=== PATIENT | female | born 1940 | race Two or more races ===

== ENCOUNTER → 2020-01-22 12:28 | Outpatient (BNVA) | payer MEDICARE, SELFPAY | PROVIDERS: PCP Internal Medicine; Referring Provider Internal Medicine; Visit Provider Physician Assistant | DX: Z01.818 Encounter for other preprocedural examination (principal) | CPT/HCPCS: 99213; Q3014 ==

== ENCOUNTER 2020-04-01 11:54 | Outpatient (REF) | payer MEDICARE, SELFPAY ==
[2020-04-01 14:46] LABS: Anion Gap 15 (12-20); Blood Urea Nitrogen 21 mg/dL (9-16); Calcium 9.4 mg/dL (8.4-10.2); Carbon Dioxide 23 mmol/L (22-29); Chloride 108 mmol/L (96-108); Estimated Glomerular Filt Rate 25; Glucose Random 102 mg/dL (60-115); Potassium 5.1 mmol/l (3.3-5.1); Sodium 141 mmol/L (135-145)
== END 2020-04-01 11:55 | disposition home or self-care (01) ==
LOC: HO.WFDLDS 11:54
PROVIDERS: Visit Provider Hospitalist
DX: N17.9 Acute kidney failure, unspecified (principal)
CPT/HCPCS: 80048

== ENCOUNTER 2020-04-07 11:54 | Outpatient (REF) | payer MEDICARE, SELFPAY ==
[2020-04-07 13:14] LABS: Anion Gap 15 (12-20); Blood Urea Nitrogen 15 mg/dL (9-16); Calcium 9.4 mg/dL (8.4-10.2); Carbon Dioxide 23 mmol/L (22-29); Chloride 107 mmol/L (96-108); Estimated Glomerular Filt Rate 32; Glucose Random 107 mg/dL (60-115); Potassium 5.2 mmol/l (3.3-5.1); Sodium 140 mmol/L (135-145)
== END 2020-04-07 11:55 | disposition home or self-care (01) ==
LOC: HO.LAB 11:54
PROVIDERS: PCP Hospitalist; Visit Provider Hospitalist
DX: N17.9 Acute kidney failure, unspecified (principal); E87.5 Hyperkalemia
CPT/HCPCS: 36415; 80048

== ENCOUNTER 2020-10-06 09:45 | Outpatient (RCR) | payer MEDICARE, SELFPAY | END 2020-10-06 15:00 | disposition home or self-care (01) | LOC: HO.OT 09:45 | PROVIDERS: PCP Internal Medicine; Visit Provider Internal Medicine | DX: M79.642 Pain in left hand (principal) ==

== ENCOUNTER 2020-11-03 13:45 | Outpatient (REF) | payer MEDICARE, SELFPAY ==
--- NOTE | ~2020-11-03 | XR_ITS ---
EXAMINATION: XR SHOULDER, RIGHT CLINICAL INFORMATION: Osteoarthritis. COMPARISON: None. TECHNIQUE: AP external rotation, Grashey, scapular Y, and axillary views of the right shoulder. FINDINGS: There is no evidence of acute fracture or dislocation of the right shoulder. No evidence of calcific tendinitis. There is spurring at the glenohumeral joint with some bony densities about the superior glenoid, likely related to previous trauma. There is some spurring about the acromioclavicular joint. XR/XR shoulder RT min 2V IMPRESSION: No evidence of acute fracture or dislocation of the right shoulder. Degenerative change as described.
== END 2020-11-03 13:46 | disposition home or self-care (01) ==
LOC: HO.XRAY 13:45
PROVIDERS: PCP Internal Medicine; Visit Provider Nurse Practitioner Family
DX: M19.011 Primary osteoarthritis, right shoulder (principal); M25.511 Pain in right shoulder
CPT/HCPCS: 73030; 99212

== ENCOUNTER 2020-11-18 06:08 | Outpatient (REF) | payer MEDICARE, SELFPAY | END 2020-11-18 06:09 | disposition home or self-care (01) | LOC: HO.RADIR 06:08 | PROVIDERS: Visit Provider Internal Medicine | DX: M19.011 Primary osteoarthritis, right shoulder (principal) | CPT/HCPCS: 20611; J3300 ==

== ENCOUNTER 2021-04-29 13:19 | Outpatient (REF) | payer MEDICARE, SELFPAY ==
[2021-04-29 16:17] LABS: Vitamin B12 178 pg/mL (200-900)
[2021-04-29 17:19] LABS: TSH reflex Free T4 3.22 uIU/mL (0.32-4.0)
[2021-05-04 17:37] LABS: Vitamin D 25-OH, D2 <4 ng/mL; Vitamin D 25-OH, D3 28 ng/mL; Vitamin D 25-OH, Total 28 ng/mL (30-100)
== END 2021-04-29 13:20 | disposition home or self-care (01) ==
LOC: HO.LAB 13:19
PROVIDERS: PCP Internal Medicine; Referring Provider Internal Medicine; Visit Provider Nurse Practitioner Family
DX: R19.7 Diarrhea, unspecified (principal); E55.9 Vitamin D deficiency, unspecified; K21.9 Gastro-esophageal reflux disease without esophagitis; K58.2 Mixed irritable bowel syndrome; K59.01 Slow transit constipation
CPT/HCPCS: 36415; 82306; 82607; 82746; 84443; 99212

== ENCOUNTER 2021-05-04 17:01 | Outpatient (REF) | payer MEDICARE, MEDICAID, SELFPAY | END 2021-05-04 17:02 | disposition home or self-care (01) | LOC: HO.LNP 17:01 | PROVIDERS: Visit Provider Nurse Practitioner Family | DX: K21.9 Gastro-esophageal reflux disease without esophagitis (principal); Z11.0 Encounter for screening for intestinal infectious diseases | CPT/HCPCS: 87338 ==

== ENCOUNTER 2021-07-26 10:14 | Outpatient (REF) | payer MEDICARE, MEDICAID, SELFPAY ==
[2021-07-26 10:36] VITALS: BP 140/44; PULSE 62; RESP 16; TEMP 37.1; O2SAT 100
[2021-07-26 10:37] VITALS: BMI 37.3
== END 2021-07-26 10:15 | disposition home or self-care (01) ==
LOC: HO.MS 10:14
PROVIDERS: PCP Internal Medicine; Visit Provider Ophthalmology
PROC: (CPT 66821; principal; 2021-07-26 11:10)
DX: H26.491 Other secondary cataract, right eye (principal); Z96.1 Presence of intraocular lens; E11.3592 Type 2 diabetes mellitus with proliferative diabetic retinopathy without macular edema, left eye; I10 Essential (primary) hypertension; J45.909 Unspecified asthma, uncomplicated; Z79.84 Long term (current) use of oral hypoglycemic drugs; Z79.899 Other long term (current) drug therapy
CPT/HCPCS: 66821

== ENCOUNTER 2022-12-02 10:04 | Outpatient (AMB) | payer MEDICARE, MEDICAID, SELFPAY ==
--- NOTE | 2022-12-02 10:10 | A.OFFPC_ITS ---
Vital Signs 12/02/22 10:12 Height 4 ft 10 in Weight 175 lb BMI 36.6 BP 112/68 Blood Pressure Location Lt brachial Position Sitting Pulse 72 Pulse Source Pulse Oximeter Temp Source Skin Pulse Oximetry (%) 100 Oxygen Delivery Method Room Air Intake Visit Reasons: Physical exam Allergies aspirin [ASA] Allergy (Severe, Verified 12/02/22 10:20) FACIAL SWELLING naproxen [NAPROXEN] Allergy (Intermediate, Verified 12/02/22 10:20) NAUSEA & VOMITING hydrocodone [From Vicodin] Allergy (Mild, Verified 12/02/22 10:20) itching NSAIDS (Non-Steroidal Anti-Inflamma [Nsaids] Allergy (Mild, Verified 12/02/22 10:20) itching penicillamine Allergy (Mild, Verified 12/02/22 10:20) itching Medication List - Last Reconciled 12/02/22 by TIMOHTY Truong allopurinol 100 mg PO DAILY 90 days alum-mag hydroxide-simeth 200-200-20 mg/5 mL mL PO amiodarone 200 mg PO .once a day 90 days apixaban (Eliquis) 5 mg PO Q12H blood pressure monitor As directed blood sugar diagnostic As directed cholecalciferol (vitamin D3) 25 mcg PO DAILY 90 days commode As directed dapagliflozin propanediol (Farxiga) 10 mg PO DAILY 90 days disposable gloves As directed [disposable underwear As directed] famotidine 40 mg PO BEDTIME 90 days ferrous sulfate 325 mg PO DAILY folic acid 1 mg PO DAILY 90 days gabapentin 600 mg (2 x 300 mg) PO BID gabapentin 400 mg PO BID 90 days loratadine 10 mg PO DAILY mecobalamin (vitamin B12) 1,000 mcg sublingual BEDTIME 90 days metformin 2,000 mg (2 x 1,000 mg) PO DAILY 90 days methylcellulose (laxative) (Citrucel) 500 mg PO DAILY metoprolol tartrate 75 mg (3 x 25 mg) PO DAILY montelukast 10 mg PO DAILY ondansetron HCl 4 mg PO DAILY PRN 90 days [personal cleansing wipes As directed] sennosides (Natural Senna Laxative) 8.6 mg PO BEDTIME simvastatin 10 mg PO BEDTIME tramadol 50 mg PO Q6H PRN Transfer Bench As directed underpads (Bed Underpads) As directed Tobacco use date assessed: 12/02/22 Fall risk assessment: No Falls in past year Last assessed Fall Risk: 12/02/22 Dental Screening Dental Screen Date: 12/02/22 Did you have a dental visit in the last 12 months?: Yes Did you have a dental problem in the last 6 months where you did not have access to dental care?: No Was dental information given to patient?: Patient has dentist HPI Physical exam HPI Details Patient is an 82-year-old female who presents today for physical exam. Patient of Dr. Maza. Medical history significant for diabetes, asthma, hyperlipidemia, atrial flutter-followed by Cardiology, obesity, gout, chronic GERD-patient reports that Pepcid is not helping her -she reports she was on omeprazole in the past which was helping her more-would like to go back on omeprazole, hypertension, bilateral hip and bilateral knee pain-patient reports she was seen by rheumatology in the past and was receiving injections in her joints-would like to see orthopedics for injections. She denies shortness of breath or chest pain. Patient is due for diabetic eye exam, will refer. Today we discussed patient's need for mammogram and bone density screening. Patient reports intermittent rash like eczema on her arms for the past some time, she uses Vaseline with no much improvement. Patient is a Swedish-speaking and her granddaughter Umberto was with interpretation. Patient was encouraged to complete her blood work that was ordered by PCP. [facility] Medical History Acid reflux Adenomatous colon polyp Asthma B12 deficiency Gout HTN (hypertension) Hyperlipidemia Left hand pain Left hip pain Left knee pain Lumbar pain Lumbar radiculopathy Morbid obesity Normal colonoscopy Right hip pain Right knee pain Right shoulder pain Surgical History History of colonoscopy History of surgery History of total abdominal hysterectomy and bilateral salpingo-oophorectomy Family History Father No problems noted. Mother No problems noted. 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 1. Little interest or pleasure in doing things: not at all 2. Feeling down, depressed, or hopeless: not at all 3. Trouble falling or staying asleep, or sleeping too much: not at all 4. Feeling tired or having little energy: not at all 5. Poor appetite or overeating: not at all 6. Feeling bad about yourself - or that you are a failure or have let yourself or your family down: not at all 7. Trouble concentrating on things, such as reading the newspaper or watching television: not at all 8. Moving or speaking so slowly that other people could have noticed. Or the opposite - being so fidgety or restless that you have been moving around a lot more than usual: not at all 9. Thoughts that you would be better off or of hurting yourself in some way: not at all Total score: 0 Depression Screening Interpretation: Negative 77092 - PHQ-9 Billing: Yes Source: Developed by Drs. Leonard Kaufman, Melinda Howard, Pedro Carrington and colleagues, with an educational traci from [employer]. Thrive Questionnaire Date Thrive assessed: 05/16/22 AUDIT C Alcohol Use Questionnaire (AUDIT-C) 1. How often do you have a drink containing alcohol?: Never Total Score: 0 Score Reviewed/Action Taken: No ALMA-7 AMB Questionnaire ALMA-7 Date ALMA - 7 assessed: 05/16/22 Feeling nervous, anxious, or on edge: 0 = Not at all Not being able to stop or control worryin = Not at all Worrying too much about different things: 0 = Not at all Trouble relaxin = Not at all Being so restless that it is hard to sit still: 0 = Not at all Becoming easily annoyed or irritable: 0 = Not at all Feeling afraid as if something awful might happen: 0 = Not at all Total ALMA-7 score (0-4 normal; 5-9 mild; 10-14 moderate; 15-21 severe): 0 Source: Developed by Drs. Leonard Kaufman, Melinda Howard, Pedro Carrington and colleagues, with an educational traci from [employer]. ALMA-7 Assessment Billing ALMA-7 Assessment Tool: ALMA-7 Assessment 08235 Review of Systems Const Denies body aches, Denies chills, Denies fever(s) and Denies headache(s) Eyes Denies change in vision ENT Denies dizziness, Denies otalgia, Denies headache(s), Denies nasal discharge, Denies sinus pain and Denies sore throat Card Denies chest pain, Denies edema, Denies lightheadedness and Denies dyspnea Resp Denies cough, Denies dyspnea and Denies wheezing GI Denies abdominal pain, Denies constipation, Reports dyspepsia, Reports heartburn, Denies diarrhea, Denies nausea and Denies vomiting Denies dysuria Musc Denies myalgias and Reports arthralgias Skin/Breast Denies rash Neuro Denies dizziness and Denies headache(s) Aller/Immun Denies wheezing Physical exam (Primary Care) Vital Signs: Last Vital Signs Pulse 72 12/02/22 10:12 BP 112/68 12/02/22 10:12 Pulse Ox 100 12/02/22 10:12 Oxygen Delivery Method Room Air 12/02/22 10:12 BMI result Body Mass Index 36.6 Tobacco/Smoking Status: Tobacco use Status Tobacco use date assessed 12/02/22 12/02/22 10:19 Patient Tobacco Use Status Former Tobacco user 12/02/22 10:11 Tobacco use type Cigarette 12/02/22 10:11 e-Cigarette/Vaping Use Never Used 12/02/22 10:11 PHQ-9: PHQ-9 Score PHQ-9: Total score 0 12/02/22 10:26 Depression Screening Interpretation: Negative Thrive Assessment: Date of Thrive Assessment Date Thrive assessed 05/16/22 12/02/22 10:11 Const General: cooperative and no acute distress Orientation/consciousness: patient oriented x3 HENMT Head: Yes normocephalic and Yes atraumatic Ears: TM's normal bilaterally Face and sinus: Yes sinuses nontender Mouth: oropharynx normal and moist mucous membranes Throat: Yes posterior oropharynx normal Eyes General: appearance normal, both eyes and all related structures Pupils: Equal, round and reactive pupils present EOM: EOMs intact bilaterally Neck Neck: Yes normal visual inspection, Yes full ROM and Yes no lymphadenopathy Thyroid: Thyroid normal Resp Effort & Inspection: normal respiratory effort and able to speak in complete sentences Auscultation: clear to auscultation bilaterally, no crackles, no rales, no rhonchi and no wheezes Cardio Rate: regular rate Rhythm: regular rhythm Heart sounds: S1 normal heart sound present, S2 normal heart sound present and no murmurs GI Palpation (GI): Soft to palpation, not firm, nontender, no guarding, not rigid and no hepatosplenomegaly Auscultation: normal bowel sounds General: No CVA tenderness Back/Spine/Pelvis Back: No CVA tenderness Skin Other: Bilateral distal arms with mild amount of slightly erythematous/dry areas with scabs, patient reports pruritus, reports scratching Neuro General: patient oriented x3 Cranial nerves: Yes Equal, round and reactive pupils present Gait exam (Neuro): Normal gait present Extrem General: Yes full ROM and No edema Results AMB Hemoglobin A1c AMB Hemoglobin A1c 4.6 % Last Edit by SARAH Pope on 12/02/22 10:20 Results Reviewed Results Reviewed: Laboratory Last Values Hgb A1c (Clinic) 4.6 % (4.0-6.0) 12/02/22 10:08 Assessment and Plan Assessment & Plan (1) Rash: Code(s): R21 - Rash and other nonspecific skin eruption Plan: Suspect eczema Continue Vaseline cream p.r.n. Start triamcinolone cream daily for 2 weeks (2) Post-menopausal: Code(s): Z78.0 - Asymptomatic menopausal state (3) Screening for breast cancer: Code(s): Z12.39 - Encounter for other screening for malignant neoplasm of breast (4) Atrial flutter: Code(s): I48.92 - Unspecified atrial flutter Plan: Continue to follow-up with cardiology On Eliquis, metoprolol, amiodarone (5) Right knee pain: Code(s): M25.561 - Pain in right knee Plan: Orthopedics referral (6) Left knee pain: Code(s): M25.562 - Pain in left knee Plan: Same as above (7) Right hip pain: Code(s): M25.551 - Pain in right hip Plan: Same as above (8) Left hip pain: Code(s): M25.552 - Pain in left hip Plan: Same as above (9) Hypertension, essential: Code(s): I10 - Essential (primary) hypertension Plan: Goal BP equal or less than 140/90 Continue current treatment Low-sodium diet (10) Chronic GERD: Code(s): K21.9 - Gastro-esophageal reflux disease without esophagitis Plan: Stop Pepcid Start omeprazole at bedtime Avoid GERD trigger foods Do not lay down 2-3 hours after evening meal (11) Morbid obesity: Code(s): E66.01 - Morbid (severe) obesity due to excess calories Plan: Healthy food choices and exercise as tolerated (12) Hyperlipidemia: Code(s): E78.5 - Hyperlipidemia, unspecified Plan: Patient was encouraged to complete her blood work Continue simvastatin Low-cholesterol diet (13) Diabetes: Code(s): E11.9 - Type 2 diabetes mellitus without complications Qualifiers: Diabetes mellitus type: type 2 Diabetes mellitus long-term insulin use: without long-term use Diabetes mellitus complication status: without complication Qualified Code(s): E11.9 - Type 2 diabetes mellitus without complications Plan: A1c 4.6 today Continue farxiga and metformin Low-carbohydrate diet (14) Asthma: Code(s): J45.909 - Unspecified asthma, uncomplicated Plan: Stable (15) Adult general medical exam: Code(s): Z00.00 - Encounter for general adult medical examination without abnormal findings Plan: Patient was encouraged to complete her blood work Plan Follow-up with PCP in 3 months or sooner as needed Orders: Orders MM tomosynthesis screening BI Today Z12.31 - Encounter for screening mammogram for malignant neoplasm of breast, Z12.39 - Encounter for other screening for malignant neoplasm of breast XR DEXA axial skeleton Today Z78.0 - Asymptomatic menopausal state AMB Hemoglobin A1c Today E11.9 - Type 2 diabetes mellitus without complications Referrals Ophthalmology Referral E11.9 - Type 2 diabetes mellitus without complications Orthopedics Referral M25.551 - Pain in right hip, M25.552 - Pain in left hip, M25.561 - Pain in right knee, M25.562 - Pain in left knee Medications: New omeprazole 20 mg PO DAILY 90 caps 0RF K21.9 - Gastro-esophageal reflux disease without esophagitis omeprazole 20 mg PO BEDTIME 90 caps 0RF K21.9 - Gastro-esophageal reflux disease without esophagitis triamcinolone acetonide 0.1% 1 appl topical DAILY 14 days 15 grams 0RF R21 - Rash and other nonspecific skin eruption blood-glucose meter (FreeStyle Lite Meter kit) test daily 1 ea 0RF E11.9 - Type 2 diabetes mellitus without complications blood sugar diagnostic (FreeStyle Lite Strips) test daily 100 ea 2RF E11.9 - Type 2 diabetes mellitus without complications lancets (FreeStyle Lancets) test daily 100 ea 2RF E11.9 - Type 2 diabetes mellitus without complications Discontinued famotidine Discontinued Reason: Doctor's Order 40 mg PO BEDTIME 90 days 90 tabs 3RF K21.9 - Gastro-esophageal reflux disease without esophagitis Coding Level of Care Code Est Pt Prev Care >65y(61118) Diagnoses Rash R21 Post-menopausal Z78.0 Screening for breast cancer Z12.39 Atrial flutter I48.92 Right knee pain M25.561 Left knee pain M25.562 Right hip pain M25.551 Left hip pain M25.552 Hypertension, essential I10 Chronic GERD K21.9 Morbid obesity E66.01 Hyperlipidemia E78.5 Diabetes E11.9 Diabetes mellitus type: type 2 Diabetes mellitus long-term insulin use: without long-term use Diabetes mellitus complication status: without complication Asthma J45.909 Adult general medical exam Z00.00 Additional Codes ALMA-7 Assessment Billing - ALMA-7 Assessment Tool: ALMA-7 Assessment 41125 ([id number])
[2022-12-02 10:12] VITALS: BP 112/68; PULSE 72; O2SAT 100; BMI 36.6
== END 2022-12-02 10:43 | disposition home or self-care (01) ==
PROVIDERS: PCP Internal Medicine; Visit Provider Nurse Practitioner Family
DX: E11.9 Type 2 diabetes mellitus without complications (principal)
CPT/HCPCS: 83036; 99397

== ENCOUNTER 2023-01-02 08:20 | Outpatient (REF) | payer MEDICARE, MEDICAID, SELFPAY ==
--- NOTE | ~2023-01-02 | XR_ITS ---
EXAMINATION: XR BILATERAL KNEES CLINICAL INFORMATION: Reason for Exam M25.569 - Pain in unspecified knee COMPARISON: Knee radiographs 11/23/2018, 06/19/2019 TECHNIQUE: One view of the bilateral knees standing and 2 views of each knee FINDINGS: RIGHT KNEE: No acute fracture or dislocation. Moderate degenerative changes of the knee with loss of patellofemoral compartment and space and bulky tricompartmental osteophytes similar to prior.. Moderate suprapatellar joint effusion. Mineralization within the tibiofemoral joint space which may reflect sequelae of chondrocalcinosis. LEFT KNEE: No acute fracture or dislocation. Mild to moderate degenerative changes of the knee with medial and patellofemoral compartment osteophytes and spurring of the tibial spines similar to prior. Well-corticated osseous fragment adjacent to the left medial femoral condyle may reflect sequelae of remote medial collateral ligament avulsion injury. No joint effusion. Atherosclerotic vascular calcification. Mineralization the tibiofemoral joint space which may reflect sequelae of chondrocalcinosis. XR/XR knee LT 2V IMPRESSION: * Moderate degenerative changes of the right knee and mild to moderate degenerative changes of the left knee similar to prior. * Mineralization within bilateral tibiofemoral joint spaces which may reflect sequelae of chondrocalcinosis. * Well-corticated osseous fragment adjacent to the left medial femoral condyle may reflect sequelae of remote medial collateral ligament avulsion injury.
--- NOTE | ~2023-01-02 | XR_ITS ---
EXAMINATION: XR BILATERAL KNEES CLINICAL INFORMATION: Reason for Exam M25.569 - Pain in unspecified knee COMPARISON: Knee radiographs 11/23/2018, 06/19/2019 TECHNIQUE: One view of the bilateral knees standing and 2 views of each knee FINDINGS: RIGHT KNEE: No acute fracture or dislocation. Moderate degenerative changes of the knee with loss of patellofemoral compartment and space and bulky tricompartmental osteophytes similar to prior.. Moderate suprapatellar joint effusion. Mineralization within the tibiofemoral joint space which may reflect sequelae of chondrocalcinosis. LEFT KNEE: No acute fracture or dislocation. Mild to moderate degenerative changes of the knee with medial and patellofemoral compartment osteophytes and spurring of the tibial spines similar to prior. Well-corticated osseous fragment adjacent to the left medial femoral condyle may reflect sequelae of remote medial collateral ligament avulsion injury. No joint effusion. Atherosclerotic vascular calcification. Mineralization the tibiofemoral joint space which may reflect sequelae of chondrocalcinosis. XR/XR knee standing BI IMPRESSION: * Moderate degenerative changes of the right knee and mild to moderate degenerative changes of the left knee similar to prior. * Mineralization within bilateral tibiofemoral joint spaces which may reflect sequelae of chondrocalcinosis. * Well-corticated osseous fragment adjacent to the left medial femoral condyle may reflect sequelae of remote medial collateral ligament avulsion injury.
--- NOTE | ~2023-01-02 | XR_ITS ---
EXAMINATION: XR PELVIS CLINICAL INFORMATION: Pain COMPARISON: Hip radiographs 11/25/2016 TECHNIQUE: AP view of the pelvis. FINDINGS: No acute fracture or dislocation. Calcified phleboliths in the pelvis. Atherosclerotic vascular calcification. Mild degenerative changes of the hips with degenerative spurring. A 1 cm indeterminate calcification overlying the left aspect of the L5 transverse process, if any clinical concern for a distal ureteral stone as this can occur in this location a CT stone protocol could be obtained for further characterization. Degenerated disc disease in the visualized lower lumbosacral spine. XR/XR pelvis 1-2V IMPRESSION: 1. A 1 cm indeterminate calcification overlying the left aspect of the L5 transverse process, if any clinical concern for a distal ureteral stone as this can occur in this location a CT stone protocol could be obtained for further characterization. 2. Mild degenerative changes of the hips. 3. Degenerative disc disease in the visualized lower lumbosacral spine.
--- NOTE | ~2023-01-02 | XR_ITS ---
EXAMINATION: XR BILATERAL KNEES CLINICAL INFORMATION: Reason for Exam M25.569 - Pain in unspecified knee COMPARISON: Knee radiographs 11/23/2018, 06/19/2019 TECHNIQUE: One view of the bilateral knees standing and 2 views of each knee FINDINGS: RIGHT KNEE: No acute fracture or dislocation. Moderate degenerative changes of the knee with loss of patellofemoral compartment and space and bulky tricompartmental osteophytes similar to prior.. Moderate suprapatellar joint effusion. Mineralization within the tibiofemoral joint space which may reflect sequelae of chondrocalcinosis. LEFT KNEE: No acute fracture or dislocation. Mild to moderate degenerative changes of the knee with medial and patellofemoral compartment osteophytes and spurring of the tibial spines similar to prior. Well-corticated osseous fragment adjacent to the left medial femoral condyle may reflect sequelae of remote medial collateral ligament avulsion injury. No joint effusion. Atherosclerotic vascular calcification. Mineralization the tibiofemoral joint space which may reflect sequelae of chondrocalcinosis. XR/XR knee RT 2V IMPRESSION: * Moderate degenerative changes of the right knee and mild to moderate degenerative changes of the left knee similar to prior. * Mineralization within bilateral tibiofemoral joint spaces which may reflect sequelae of chondrocalcinosis. * Well-corticated osseous fragment adjacent to the left medial femoral condyle may reflect sequelae of remote medial collateral ligament avulsion injury.
== END 2023-01-02 08:21 | disposition home or self-care (01) ==
LOC: HO.HOSX 08:20
PROVIDERS: Visit Provider Orthopaedic Surgery
DX: M70.62 Trochanteric bursitis, left hip (principal); M25.561 Pain in right knee; M25.562 Pain in left knee; M70.61 Trochanteric bursitis, right hip; E11.9 Type 2 diabetes mellitus without complications
CPT/HCPCS: 20610; 72170; 73560; 73565; 99212; J1100

== ENCOUNTER 2023-01-02 09:06 | Outpatient (AMB) | payer MEDICARE, MEDICAID, SELFPAY ==
--- NOTE | 2023-01-02 09:11 | A.OFFVIS_ITS ---
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 Patient rpeorts that her hip pain starts in her lower back anf radiates to the hips and knees. The Right knee is more painful than the left. There is swelling and pain, the knee gives out on her frequently. She has history of injections in the knees and hips with a Flat Finisher which were helpful and she would like to repeat injections today. 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 She complains of pain that radiates from her lower back into her hips and knees. She localizes her hip pain to the lateral aspect of her hips. She says her right knee is the more painful than her left, and that her knees often swell and give out on her. Her primary complaint is of hip pain and says this is causing her difficulty with sleeping at night. She denies any numbness or tingling. She has received injections by a abap developer in the past, which helped her pain, and would like to discuss injections today. [facility] Medical History Lumbar pain Right knee pain Left knee pain Right hip pain Left hip pain Right shoulder pain Left hand pain Gout Morbid obesity Hyperlipidemia Lumbar radiculopathy B12 deficiency Normal colonoscopy Adenomatous colon polyp Asthma Acid reflux HTN (hypertension) Surgical History History of surgery History of colonoscopy History of total abdominal hysterectomy and bilateral salpingo-oophorectomy Family History Father No problems noted. Mother No problems noted. 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 Caregiver staying overnight: Yes Housing: Apartment Alcohol intake: never Patient Tobacco Use Status: Former Tobacco user Tobacco use type: Cigarette e-Cigarette/Vaping Use: Never Used Second Hand Smoke Exposure: No service: No Current occupational status: disabled Cognitive needs: Yes Hearing needs: No Vision needs: Yes Review of Systems Const All systems reviewed & are unremarkable except as noted in HPI and below Physical Exam Vital Signs: BMI result Body Mass Index 36.6 Const General: no acute distress, alert and awake Orientation/consciousness: patient oriented x3 HEENT Head: Yes normocephalic and Yes atraumatic Eyes EOM: EOMs intact bilaterally Resp Effort & Inspection: normal respiratory effort and able to speak in complete sentences Cardio Jugular venous distension: no JVD Skin General skin exam: turgor normal Rashes: no rashes Neuro General: patient oriented x3 Extrem Other: Bilateral Hips: TTP greater trochanter Psych Appearance: grossly normal Affect: normal affect Attitude: cooperative Office Procedures Joint Injection/Drain Joint Injection/Drain Details: Injected 1 mL of Decadron and 3 mL 1% lidocaine and 3 mL of 0.25% Marcaine. Site was prepped using aseptic technique. Patient tolerated the procedure well. Primary Site: other (left greater trochanter) Approach Used: posterolateral Coding 88243 - Large joint Procedure code (CPT) selection complete Results Reviewed Results Reviewed: 01/02/23 09:41 BUPivacaine MPF 0.25 % [Sensorcaine-MPF 0.25% 10 ML] 10 ml .ROUTE .STK-MED ONE Lidocaine HCl 2 % MPF [Xylocaine 2 % MPF] 5 ml .ROUTE .STK-MED ONE dexAMETHasone sod phosphate [Decadron] 4 mg .ROUTE .STK-MED ONE I personally reviewed relevant radiographs. 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 She has pain with daily activity, worse at night which is limiting her sleep. She has a hx of relief from steroid injections in the past. I discussed her diagnosis and treatment options. I recommend PT & NSAIDs. I injected her left greater trochanter today, which she tolerated well. She can follow up prn. 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 Her Diabetes is well-controlled. Plan Scribed for Chaitanya Tejada MD by Doyle Hancock, biomedical instrument technician, on 01/02/23 at 9:40 AM, EST. 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
[2023-01-02 09:24] VITALS: BMI 36.6
== END 2023-01-02 10:00 | disposition home or self-care (01) ==
PROVIDERS: PCP Internal Medicine; Visit Provider Orthopaedic Surgery
DX: M70.61 Trochanteric bursitis, right hip (principal); M70.62 Trochanteric bursitis, left hip; M25.561 Pain in right knee; M25.562 Pain in left knee
CPT/HCPCS: 20610; 99214

== ENCOUNTER 2023-01-20 08:38 | Outpatient (REF) | payer MEDICARE, MEDICAID, SELFPAY ==
--- NOTE | ~2023-01-20 | MM_ITS ---
EXAMINATION: MM SCREENING DIGITAL BREAST TOMOSYNTHESIS, BILATERAL CLINICAL INFORMATION: Screening. Asymptomatic. COMPARISON: Mammography: This study is compared with prior exams dating back to 2019. TECHNIQUE: Digital breast tomosynthesis is performed in both the craniocaudal and mediolateral oblique views along with computer-aided detection (CAD). Synthesized 2D images are generated from the tomosynthesis. FINDINGS: There are scattered areas of fibroglandular density (ACR BI-RADS breast composition Category b). There are no significant masses, abnormal calcifications, or other abnormalities. There are bilateral, unchanged, benign secretory calcifications in each breast. MM/MM tomosynthesis screening BI IMPRESSION: No mammographic evidence of malignancy. ASSESSMENT: BI-RADS BI-RADS 2 - Benign Findings RECOMMENDATION: Routine annual mammography screening. 1 year F/U This examination should not preclude the clinical evaluation of a suspicious palpable abnormality. This patient's information was entered into a reminder system with a target due date for their next mammogram.
--- NOTE | ~2023-01-20 | MM_ITS ---
EXAMINATION: BONE DENSITOMETRY CLINICAL INDICATION: Asymptomatic menopausal state. COMPARISON: Baseline BD dated 06/30/2009. TECHNIQUE: Using a [employer]ost[employer] DXA System (software version: 13.1) manufactured by [employer], dual-energy x-ray absorptiometry was performed of the lumbar spine and left hip. The images are of good technical quality. Summary results are attached. FINDINGS: LEFT FEMUR, NECK: Current: BMD 0.709 g/cm2, Z-score -0.9, T-score -2.4, osteopenia. Baseline: BMD 0.882 g/cm2. LEFT FEMUR, TOTAL: Current: BMD 0.825 g/cm2, Z-score -0.1, T-score -1.4, osteopenia, 25.0% decrease from baseline (<5% change is not significant). Baseline: BMD 1.100 g/cm2. AP SPINE L1-L4: Current: BMD 1.189 g/cm2, Z-score 0.8, T-score 0.1, normal, 9.9% increase from baseline (<5% change is not significant). Baseline: BMD 1.082 g/cm2. IDENTIFIED RISK FACTORS: Menopause. HISTORY OF FRACTURE: None listed. MEDICATIONS: None listed. MM/XR DEXA axial skeleton IMPRESSION: 1. DIAGNOSIS: Osteopenia based on the lowest T-score value of -2.4 in the femoral neck applying World Health Organization criteria. 2. 10-YEAR FRACTURE RISK PREDICTION, FRAX: Major osteoporotic fracture (clinical spine, forearm, hip or shoulder) 9.0%. Hip fracture 2.8%. 3. Treatment Recommendations: NOF guidelines recommend consideration for treatment in postmenopausal women and men age 50 and older presenting with the following: -A hip or vertebral (clinical or morphometric) fracture. -T-score less than or equal to -2.5 at the femoral neck or spine after appropriate evaluation to exclude secondary causes. -Low bone mass at the hip or spine and a 10-year fracture probability by FRAX of greater than or equal to 3% for hip fracture or greater than or equal to 20% for major osteoporotic fracture based on the [place] adapted WHO algorithm. 4. Other Recommendations: All treatment decisions require clinical judgment and consideration of individual patient factors, including patient preferences, comorbidities, previous drug use, risk factors not captured in the FRAX model (e.g. frailty, falls, vitamin D deficiency, increased bone turnover, interval significant decline in bone density) and possible under or overestimation of fracture risk by FRAX. Additional medical evaluation for secondary cause of low bone mineral density may be appropriate. FUTURE SCAN RECOMMENDATION: People with diagnosed cases of osteoporosis or at high risk for fracture should have regular bone mineral density tests. For patients eligible for Medicare, routine testing is allowed once every 2 years. The testing frequency can be increased to one year for patients who have rapidly progressing disease, those who are receiving or discontinuing medical therapy to restore bone mass, or have additional risk factors.
== END 2023-01-20 08:39 | disposition home or self-care (01) ==
LOC: HO.MAMMO 08:38
PROVIDERS: PCP Internal Medicine; Visit Provider Nurse Practitioner Family
DX: Z12.31 Encounter for screening mammogram for malignant neoplasm of breast (principal); Z13.820 Encounter for screening for osteoporosis; Z78.0 Asymptomatic menopausal state
CPT/HCPCS: 77063; 77067; 77080

== ENCOUNTER → 2023-01-20 09:15 | Outpatient (BNV) | payer MEDICARE, MEDICAID, SELFPAY | PROVIDERS: PCP Internal Medicine; Visit Provider Radiology Diagnostic Radiology | DX: Z12.31 Encounter for screening mammogram for malignant neoplasm of breast (principal) | CPT/HCPCS: 77063; 77067 ==

== ENCOUNTER 2023-01-30 09:00 | Outpatient (AMB) | payer MEDICARE, MEDICAID, SELFPAY ==
--- NOTE | 2023-01-30 09:03 | MHC.OFFVIS ---
Intake Intake Visit Reasons: OV-Right hip injection only Intake Note: Samantha is an 82 year old female who presents today for a right hip bursa injection, The left hip was injected on 01/02/23 Allergies aspirin [ASA] Allergy (Severe, Verified 12/02/22 10:20) FACIAL SWELLING naproxen [NAPROXEN] Allergy (Intermediate, Verified 12/02/22 10:20) NAUSEA & VOMITING hydrocodone [From Vicodin] Allergy (Mild, Verified 12/02/22 10:20) itching NSAIDS (Non-Steroidal Anti-Inflamma [Nsaids] Allergy (Mild, Verified 12/02/22 10:20) itching penicillamine Allergy (Mild, Verified 12/02/22 10:20) itching HPI OV-Right hip injection only HPI Details Samantha in an 82 year old Diabetic woman with bilateral greater trochanter hip bursitis. She was last seen, and injected, in her left hip on 01/02/23. She would like to have her left hip injected again today. She says the last injection was helpful for her. She denies any changes in her medical history. [facility] Medical History Lumbar pain Right knee pain Left knee pain Right hip pain Left hip pain Right shoulder pain Left hand pain Gout Morbid obesity Hyperlipidemia Lumbar radiculopathy B12 deficiency Normal colonoscopy Adenomatous colon polyp Asthma Acid reflux HTN (hypertension) Surgical History History of surgery History of colonoscopy History of total abdominal hysterectomy and bilateral salpingo-oophorectomy Family History Father No problems noted. Mother No problems noted. 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 Caregiver staying overnight: Yes Housing: Apartment Alcohol intake: never Patient Tobacco Use Status: Former Tobacco user Tobacco use type: Cigarette e-Cigarette/Vaping Use: Never Used Second Hand Smoke Exposure: No service: No Current occupational status: disabled Cognitive needs: Yes Hearing needs: No Vision needs: Yes Review of Systems Const All systems reviewed & are unremarkable except as noted in HPI and below Physical Exam Const General: no acute distress, alert and awake Orientation/consciousness: patient oriented x3 HEENT Head: Yes normocephalic and Yes atraumatic Eyes EOM: EOMs intact bilaterally Resp Effort & Inspection: normal respiratory effort and able to speak in complete sentences Cardio Jugular venous distension: no JVD Skin General skin exam: turgor normal Rashes: no rashes Neuro General: patient oriented x3 Extrem Other: ttp greater trochanter left > right Psych Appearance: grossly normal Affect: normal affect Attitude: cooperative Office Procedures Joint Injection/Drain Joint Injection/Drain Details: Injected 1 mL of Decadron and 3 mL 1% lidocaine and 3 mL of 0.25% Marcaine. Site was prepped using aseptic technique. Patient tolerated the procedure well. Primary Site: other (Left greater trochanter) Approach Used: posterolateral Coding 33768 - Large joint Procedure code (CPT) selection complete Results Reviewed Results Reviewed: 01/30/23 08:56 BUPivacaine MPF 0.25 % [Sensorcaine-MPF 0.25% 10 ML] 10 ml .ROUTE .STK-MED ONE Lidocaine HCl 2 % MPF [Xylocaine 2 % MPF] 5 ml .ROUTE .STK-MED ONE dexAMETHasone sod phosphate [Decadron] 4 mg .ROUTE .STK-MED ONE Assessment & Plan Assessment & Plan (1) Greater trochanteric bursitis of both hips: Code(s): M70.61 - Trochanteric bursitis, right hip; M70.62 - Trochanteric bursitis, left hip Plan: This is an 82 year old woman with bilateral greater trochanter hip bursitis. She has pain with daily activity, worse at night which is limiting her sleep. She has a hx of relief from steroid injections in the past. I discussed her diagnosis and treatment options. I recommend PT & NSAIDs. I injected her left greater trochanter again today, which she tolerated well. She can follow up prn. (2) Diabetes: Code(s): E11.9 - Type 2 diabetes mellitus without complications Qualifiers: Diabetes mellitus complication status: without complication Diabetes mellitus care home insulin use: without care home use Diabetes mellitus type: type 2 Qualified Code(s): E11.9 - Type 2 diabetes mellitus without complications Plan: I discussed the hyperglycemic effects of steroid injections. Her Diabetes is well-controlled. Plan Scribed for Chaitanya Tejada MD by Doyle Hancock, rn medical inpatient services, on 01/30/23 at 9:05 AM, EST. Coding Level of Care Code Est Pt Level 3 (96038) Diagnoses Greater trochanteric bursitis of both hips M70.61; M70.62 Type 2 diabetes mellitus without complication, without long-term current use of insulin E11.9 Diabetes mellitus complication status: without complication Diabetes mellitus care home insulin use: without long term care pharmacist use Diabetes mellitus type: type 2 CPT Codes Coding - 25418 Large joint: 92656 - Large joint ([id number])
== END 2023-01-30 09:57 | disposition home or self-care (01) ==
PROVIDERS: PCP Internal Medicine; Visit Provider Orthopaedic Surgery
DX: M70.61 Trochanteric bursitis, right hip (principal); M70.62 Trochanteric bursitis, left hip; E11.9 Type 2 diabetes mellitus without complications
CPT/HCPCS: 20610

== ENCOUNTER → 2023-01-30 09:00 | Outpatient (BNVA) | payer MEDICARE, MEDICAID, SELFPAY | PROVIDERS: PCP Internal Medicine; Visit Provider Orthopaedic Surgery | DX: M70.61 Trochanteric bursitis, right hip (principal); M70.62 Trochanteric bursitis, left hip; E11.9 Type 2 diabetes mellitus without complications | CPT/HCPCS: 20610; J1100 ==

== ENCOUNTER 2023-07-13 10:44 | Outpatient (AMB) | payer MEDICARE, MEDICAID, SELFPAY ==
--- NOTE | 2023-07-13 10:49 | MHC.PC.OV ---
Vital Signs 07/13/23 10:52 07/13/23 12:25 Height 4 ft 10 in Weight 173 lb BMI 36.2 BP 130/90 H 130/80 Blood Pressure Location Rt brachial Lt brachial Position Sitting Sitting Intake Visit Reasons: DM - see comments Intake Note: Patient here for a follow up DM Automobile Designer Required: No Accompanied by: WIND TURBINE ERECTOR Allergies aspirin [ASA] Allergy (Severe, Verified 07/13/23 11:03) FACIAL SWELLING naproxen [NAPROXEN] Allergy (Intermediate, Verified 07/13/23 11:03) NAUSEA & VOMITING hydrocodone [From Vicodin] Allergy (Mild, Verified 07/13/23 11:03) itching NSAIDS (Non-Steroidal Anti-Inflamma [Nsaids] Allergy (Mild, Verified 07/13/23 11:03) itching penicillamine Allergy (Mild, Verified 07/13/23 11:03) itching Medication List - Last Reconciled 07/13/23 by Penny Andres MD [adult pullups As directed] allopurinol 100 mg PO DAILY 90 days alum-mag hydroxide-simeth 200-200-20 mg/5 mL mL PO amiodarone 200 mg PO .once a day 90 days apixaban (Eliquis) 5 mg PO Q12H blood pressure monitor As directed blood sugar diagnostic As directed blood sugar diagnostic (FreeStyle Lite Strips) Use 1 strip once a day blood sugar diagnostic (FreeStyle Lite Strips) test daily blood-glucose meter (FreeStyle Lite Meter kit) test daily blood-glucose meter (FreeStyle Lite Meter kit) As directed calcium carbonate (Oyster Shell Calcium) 500 mg PO DAILY 90 days cholecalciferol (vitamin D3) 25 mcg PO DAILY 90 days commode As directed dapagliflozin propanediol (Farxiga) 10 mg PO DAILY 90 days [disposable bedpads As directed] disposable gloves As directed disposable gloves As directed [disposable underwear As directed] ferrous sulfate 325 mg PO DAILY folic acid 1 mg PO DAILY 90 days gabapentin 400 mg PO BID 90 days [incontinence wipes As directed] lancets (FreeStyle Lancets) test daily lancets (FreeStyle Lancets) USe 1 lancet once a day loratadine 10 mg PO DAILY mecobalamin (vitamin B12) 1,000 mcg sublingual BEDTIME 90 days metformin 2,000 mg (2 x 1,000 mg) PO DAILY 90 days methylcellulose (laxative) (Citrucel) 500 mg PO DAILY montelukast 10 mg PO DAILY omeprazole 20 mg PO BEDTIME ondansetron HCl 4 mg PO DAILY PRN 90 days [personal cleansing wipes As directed] sennosides (Natural Senna Laxative) 8.6 mg PO BEDTIME simvastatin 10 mg PO BEDTIME tramadol 50 mg PO Q6H PRN Transfer Bench As directed triamcinolone acetonide 0.1% 1 appl topical DAILY 14 days underpads (Bed Underpads) As directed walker (Ultra-Light Rollator misc) As directed Tobacco use date assessed: 07/13/23 Fall risk assessment: 2 + Falls in past year Last assessed Fall Risk: 07/13/23 Dental Screening Dental Screen Date: 07/13/23 Did you have a dental visit in the last 12 months?: No Did you have a dental problem in the last 6 months where you did not have access to dental care?: No Was dental information given to patient?: Yes HPI HPI Comments History of Present Illness Details This is an 83-year-old female with atrial flutter on chronic anticoagulation, hyperlipidemia, diabetes mellitus type 2 and chronic systolic congestive heart failure that comes today accompanied by WIND TURBINE ERECTOR for follow-up on her conditions. Atrial flutter and congestive heart failure are follow by [facility] which saw her recently. Last echocardiogram on file was April 2022 showing a low ejection fraction and apparently patient had another echocardiogram with [facility] but I do not have the results. We will contact [facility] for the last note and last echocardiogram results. She has not gain 5 lb in a week. Lipid panel was ordered. A1c within goal. Blood pressure borderline and she has elevated blood pressure at home. I will add a low-dose lisinopril and blood pressure will be recheck in 3 weeks by nurse navigator. Denies any chest pain or shortness of breath. Walks with a walker for gait stability. [facility] Medical History (Updated 07/13/23 @ 12:22 by Penny Andres MD) ROHINI (acute kidney injury) Lumbar pain Right knee pain Left knee pain Right hip pain Left hip pain Right shoulder pain Left hand pain Gout Morbid obesity Hyperlipidemia Lumbar radiculopathy B12 deficiency Normal colonoscopy Adenomatous colon polyp Asthma Acid reflux HTN (hypertension) Surgical History History of surgery History of colonoscopy History of total abdominal hysterectomy and bilateral salpingo-oophorectomy Family History Father No problems noted. Mother No problems noted. 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 1. Little interest or pleasure in doing things: not at all 2. Feeling down, depressed, or hopeless: not at all 3. Trouble falling or staying asleep, or sleeping too much: not at all 4. Feeling tired or having little energy: not at all 5. Poor appetite or overeating: not at all 6. Feeling bad about yourself - or that you are a failure or have let yourself or your family down: not at all 7. Trouble concentrating on things, such as reading the newspaper or watching television: not at all 8. Moving or speaking so slowly that other people could have noticed. Or the opposite - being so fidgety or restless that you have been moving around a lot more than usual: not at all 9. Thoughts that you would be better off or of hurting yourself in some way: not at all Total score: 0 Depression Screening Interpretation: Negative Depression Screening Done: Yes 08217 - PHQ-9 Billing: Yes Source: Developed by Drs. Leonard Kaufman, Melinda Howard, Pedro Carrington and colleagues, with an educational traci from [employer]. Thrive Questionnaire Date Thrive assessed: 07/13/23 I am a: Patient What is your living situation today?: I have a steady place to live Within the past 12 months, did the food you bought not last and you didn't have the money to get more?: Never true Within the past 12 months, did you worry whether your food would run out before you got money to buy more?: Never true Do you have trouble paying for medicines?: No Do you have trouble getting transportation to medical appointments?: No Do you have trouble paying your heating and electricity bill?: No Do you have trouble taking care of your child, family member or friend?: No Do you have trouble with day-to-day activities such as bathing, preparing meals, shopping, managing finances, etc.?: Yes Are you currently unemployed and looking for a job?: No Are you interested in more education?: No Please select the resources that you would like help with: None Currently or been in a relationship where the following occur: no concerns reported THRIVE Score: 0 AUDIT C Alcohol Use Questionnaire (AUDIT-C) 1. How often do you have a drink containing alcohol?: Never Total Score: 0 Score Reviewed/Action Taken: No ALMA-7 AMB Questionnaire ALMA-7 Date ALMA - 7 assessed: 07/13/23 Feeling nervous, anxious, or on edge: 0 = Not at all Not being able to stop or control worryin = Not at all Worrying too much about different things: 0 = Not at all Trouble relaxin = Not at all Being so restless that it is hard to sit still: 0 = Not at all Becoming easily annoyed or irritable: 0 = Not at all Feeling afraid as if something awful might happen: 0 = Not at all Total ALMA-7 score (0-4 normal; 5-9 mild; 10-14 moderate; 15-21 severe): 0 Source: Developed by Drs. Leonard Kaufman, Melinda Howard, Pedro Carrington and colleagues, with an educational traci from [employer]. ALMA-7 Assessment Billing ALMA-7 Assessment Tool: ALMA-7 Assessment 64419 Review of Systems Const All systems reviewed & are unremarkable except as noted in HPI and below Eyes Reports no additional complaints, Denies change in vision and Denies other visual disturbances Card Denies chest pain at rest, Denies chest pain with activity, Denies edema, Denies irregular heart rhythm, Denies claudication, Denies dyspnea, Denies dyspnea on exertion, Denies orthopnea, Denies paroxysmal nocturnal dyspnea and Denies slow heart rate Resp Denies cough, Denies dyspnea and Denies dyspnea on exertion GI Denies abdominal pain, Denies change in bowel habits, Denies excessive flatus, Denies nausea and Denies vomiting Denies urinary incontinence, Denies urinary hesitancy and Denies urinary urgency Physical exam (Primary Care) Vital Signs: Last Vital Signs BP 130/90 H 07/13/23 10:52 BMI result Body Mass Index 36.2 Tobacco/Smoking Status: Tobacco use Status Tobacco use date assessed 07/13/23 07/13/23 11:00 Patient Tobacco Use Status Former Tobacco user 07/13/23 10:50 Tobacco use type Cigarette 07/13/23 10:50 e-Cigarette/Vaping Use Never Used 07/13/23 10:50 PHQ-9: PHQ-9 Score PHQ-9: Total score 0 07/13/23 11:20 Depression Screening Interpretation: Negative Thrive Assessment: Date of Thrive Assessment Date Thrive assessed 07/13/23 07/13/23 11:00 Currently or been in a relationship where the following occur: no concerns reported Const Limitations: ambulation with walker Resp Effort & Inspection: normal respiratory effort Auscultation: clear to auscultation bilaterally Cardio Jugular venous distension: no JVD Rate: regular rate Rhythm: regular rhythm Heart sounds: S1 normal heart sound present and S2 normal heart sound present Extrem General: Yes full ROM Results AMB Hemoglobin A1c AMB Hemoglobin A1c 5.2 % Last Edit by SARAH Crooks on 07/13/23 11:04 Results Reviewed Results Reviewed: Laboratory Last Values Hgb A1c (Clinic) 5.2 % (4.0-6.0) 07/13/23 10:49 Assessment and Plan Assessment & Plan (1) Atrial flutter: Code(s): I48.92 - Unspecified atrial flutter Plan: Continue amiodarone and chronic anticoagulation. Follow-up with Cardiology. (2) Diabetes: Code(s): E11.9 - Type 2 diabetes mellitus without complications Qualifiers: Diabetes mellitus type: type 2 Diabetes mellitus long term care phlebotomist insulin use: without long term care phlebotomist use Diabetes mellitus complication status: without complication Qualified Code(s): E11.9 - Type 2 diabetes mellitus without complications Plan: Continue Farxiga and metformin as prescribed. A1c goal is equal or less than 7% (3) Hyperlipidemia: Code(s): E78.5 - Hyperlipidemia, unspecified Plan: Continue statins. Repeat lipid panel. LDL goal is less than 70. (4) Chronic systolic (congestive) heart failure: Code(s): I50.22 - Chronic systolic (congestive) heart failure Plan: Follow-up with Cardiology. The goal is to not gain 5 lb in a week. Orders: Orders AMB Hemoglobin A1c Today E11.9 - Type 2 diabetes mellitus without complications Lipid Panel Today E78.5 - Hyperlipidemia, unspecified Microalbumin, Random (w Creat) Today E11.9 - Type 2 diabetes mellitus without complications Vitamin D 25-OH Total Today E55.9 - Vitamin D deficiency, unspecified Parietal Cell Antibody Today E53.8 - Deficiency of other specified B group vitamins Complete Blood Count Auto Diff Today D64.9 - Anemia, unspecified IRON PROFILE Today D64.9 - Anemia, unspecified Uric Acid Today M10.9 - Gout, unspecified Vitamin B12 and Folate Today E53.8 - Deficiency of other specified B group vitamins Comprehensive [place]. Panel Fast Today I10 - Essential (primary) hypertension Intrinsic Factor Antibodies Today E53.8 - Deficiency of other specified B group vitamins Medications: New lisinopril 2.5 mg PO DAILY 90 days 90 tabs 1RF Coding Level of Care Code Est Pt Level 4 (91715) Diagnoses Atrial flutter I48.92 Type 2 diabetes mellitus without complication, without long-term current use of insulin E11.9 Diabetes mellitus type: type 2 Diabetes mellitus long term care phlebotomist insulin use: without care home use Diabetes mellitus complication status: without complication Hyperlipidemia E78.5 Chronic systolic (congestive) heart failure I50.22 Additional Codes ALMA-7 Assessment Billing - ALMA-7 Assessment Tool: ALMA-7 Assessment 22563 ([id number]) Time Spent (min) 25
[2023-07-13 10:52] VITALS: BP 130/90; BMI 36.2
[2023-07-13 12:25] VITALS: BP 130/80
== END 2023-07-13 11:42 | disposition home or self-care (01) ==
PROVIDERS: PCP Internal Medicine; Visit Provider Internal Medicine
DX: I48.92 Unspecified atrial flutter (principal); E11.69 Type 2 diabetes mellitus with other specified complication; I50.22 Chronic systolic (congestive) heart failure; E78.5 Hyperlipidemia, unspecified
CPT/HCPCS: 83036; 99214

== ENCOUNTER 2023-07-20 10:24 | Outpatient (REF) | payer OTHER, SELFPAY ==
[2023-07-20 10:41] LABS: MANUAL DIFF FLAG NO
[2023-07-20 10:58] LABS: Basophils Absolute Auto 0.1 X10*3/uL (0.0-0.2); Basophils Percent Auto 1.6 % (0-2); Eosinophils Absolute Auto 0.5 X10*3/uL (0.0-0.4); Hematocrit 31.9 % (37.0-47.0); Imm Gran Abs Auto 0.02 X10*3/uL (0.00-0.03); Imm Gran Pct Auto 0.4 % (0.0-0.4); Lymphocytes Absolute Auto 1.4 X10*3/uL (1.2-4.9); Lymphocytes Percent Auto 25.2 % (20-40); Mean Corpuscular HGB Conc 31.3 g/dl (31.0-35.0); Mean Corpuscular Hemoglobin 31.9 pg (27.0-33.0); Mean Corpuscular Volume 101.9 fL (80.0-98.0); Mean Platelet Volume 11.5 fL (9.4-12.3); Monocytes Absolute Auto 0.3 X10*3/uL (0.1-1.2); Monocytes Percent Auto 5.1 % (2-11); Neutrophils Absolute Auto 3.4 x10*3/uL (2.0-8.3); Neutrophils Percent Auto 59.7 % (45-73); Platelet Count 194 X10*3/uL (160-400); Red Blood Count 3.13 X10*6/uL (4.20-5.50); Red Cell Distribution Width 13.5 % (11.0-16.0); White Blood Count 5.6 X10*3/uL (4.8-10.8)
[2023-07-20 11:41] LABS: Alanine Aminotransferase 8 U/L (0-31); Alkaline Phosphatase 79 U/L (39-117); Anion Gap 13 (12-20); Aspartate Amino Transferase 13 U/L (5-31); Bilirubin Total 0.3 mg/dL (0.0-1.0); Blood Urea Nitrogen 30 mg/dL (9-16); Calcium 9.2 mg/dL (8.4-10.2); Carbon Dioxide 26 mmol/L (22-29); Chloride 107 mmol/L (96-108); Cholesterol 145 mg/dL (<200); Estimated Glomerular Filt Rate 20; Glucose Fasting 98 mg/dL (60-99); HDL Cholesterol 58 mg/dL (>40); Iron 84 mcg/dL (30-160); LDL Cholesterol Calculated 68 mg/dL (<100); Percent Iron Saturation 38 % (15-50); Potassium 4.8 mmol/L (3.3-5.1); Sodium 141 mmol/L (135-145); Total Iron Binding Capacity 223 mcg/dL (228-428); Total Protein 7.4 g/dL (6.5-8.0); Triglycerides 99 mg/dL (<150); Unsaturated Iron Binding 139 ug/dL; Uric Acid 5.7 mg/dL (2.4-5.7); Vitamin D 25-OH Total 38.3 ng/mL (>30)
[2023-07-20 12:15] LABS: Creatinine Urine 37.12 mg/dL
[2023-07-20 18:19] LABS: Folate 13.4 ng/mL (> or = 4.0); Vitamin B12 360 pg/mL (200-900)
[2023-07-23 21:48] LABS: NT-proBNP 1276 pg/mL (<450)
[2023-07-25 00:38] LABS: Intrinsic Factor Antibodies Negative (Negative)
[2023-07-25 12:19] LABS: Parietal Cell Antibody 33.1 Unit (<=20.0)
== END 2023-07-20 10:25 | disposition home or self-care (01) ==
LOC: HO.LAB 10:24
PROVIDERS: PCP Internal Medicine; Visit Provider Internal Medicine
DX: E11.9 Type 2 diabetes mellitus without complications (principal); E78.5 Hyperlipidemia, unspecified; E55.9 Vitamin D deficiency, unspecified; E53.8 Deficiency of other specified B group vitamins; M10.9 Gout, unspecified; I11.0 Hypertensive heart disease with heart failure; I50.22 Chronic systolic (congestive) heart failure; D64.9 Anemia, unspecified
CPT/HCPCS: 36415; 80053; 80061; 82043; 82306; 82570; 82607; 82746; 83516; 83540; 83880; 84550; 85025; 86340

== ENCOUNTER 2023-07-31 09:03 | Outpatient (AMB) | payer OTHER, SELFPAY ==
--- NOTE | 2023-07-31 09:09 | HO.NEPHOV ---
Vital Signs 07/31/23 09:10 Height 4 ft 10 in Weight 179 lb BMI 37.4 BP 122/80 Blood Pressure Location Lt brachial Position Sitting Pulse 84 Pulse Source Pulse Oximeter Pulse Oximetry (%) 99 Oxygen Delivery Method Room Air Intake Visit Reasons: CKD STG 4/ Confirmed Coconut Boiler Required: Yes Coconut Boiler Name: Petros [id number] Accompanied by: WATER MECHANIC Allergies aspirin [ASA] Allergy (Severe, Verified 07/31/23 09:13) FACIAL SWELLING naproxen [NAPROXEN] Allergy (Intermediate, Verified 07/31/23 09:13) NAUSEA & VOMITING hydrocodone [From Vicodin] Allergy (Mild, Verified 07/31/23 09:13) itching NSAIDS (Non-Steroidal Anti-Inflamma [Nsaids] Allergy (Mild, Verified 07/31/23 09:13) itching penicillamine Allergy (Mild, Verified 07/31/23 09:13) itching HPI Comments Details: Samantha is a pleasant 83-year-old woman with a history of longstanding hypertension and diabetes mellitus with congestive heart failure, referred for chronic kidney disease. h/o DM x 20 years HFpEF A.flutter HTN CKD 4 recent serum creatinine was around 2.5 mg/dL and EGFR was around 20 mL/minute. About few years ago serum creatinine was 1.5 mg/dL. She has been taking Ibuprofen for about a month Used to take 2 day. Last dose was about 2 weeks ago. No weight loss No shortness of breath No chest pain No nausea or vomiting No diarrhea No polyuria, oliguria No edema No headache No palpitations or unexplained sweating [facility] [place] Medical History (Updated 07/25/23 @ 09:17 by Penny Andres MD) ROHINI (acute kidney injury) Lumbar pain Right knee pain Left knee pain Right hip pain Left hip pain Right shoulder pain Left hand pain Gout Morbid obesity Hyperlipidemia Lumbar radiculopathy B12 deficiency Normal colonoscopy Adenomatous colon polyp Asthma Acid reflux HTN (hypertension) Surgical History History of surgery History of colonoscopy History of total abdominal hysterectomy and bilateral salpingo-oophorectomy Family History Father No problems noted. Mother No problems noted. Son In good health Son In good health Daughter In good health Daughter In good health Daughter In good health Daughter In good health Social History Household Members Other:: lives alone- has a college administrator Caregiver staying overnight: Yes Housing: Apartment Alcohol intake: never Patient Tobacco Use Status: Former Tobacco user Tobacco use type: Cigarette e-Cigarette/Vaping Use: Never Used Second Hand Smoke Exposure: No service: No Current occupational status: disabled Cognitive needs: Yes Hearing needs: No Vision needs: Yes Physical Exam Vital Signs: Last Vital Signs Pulse 84 07/31/23 09:10 BP 122/80 07/31/23 09:10 Pulse Ox 99 07/31/23 09:10 Oxygen Delivery Method Room Air 07/31/23 09:10 BMI result Body Mass Index 37.4 Const General: comfortable Nutritional Appearance: well nourished Orientation/consciousness: patient oriented x3 HEENT Head: No normal to inspection Mouth: moist mucous membranes Neck Neck: Yes supple and Yes no JVD Resp Auscultation: clear to auscultation bilaterally, no rales and rub present Cardio Jugular venous distension: no JVD Palpation: no palpable S3 and no palpable S4 Heart sounds: no rubs GI Palpation (GI): Soft to palpation and nontender Percussion: No Fluid wave present General: Yes no CVA tenderness Back/Spine/Pelvis Back: no CVA tenderness Skin General skin exam: no rashes or lesions noted Neuro General: patient oriented x3 Extrem General: Yes no pedal edema and No clubbing Results Reviewed Nephrology Results: Hgb 10.0 g/dl (12.0-16.0) L 07/20/23 WBC 5.6 X10*3/uL (4.8-10.8) 07/20/23 Plt Count 194 X10*3/uL (160-400) 07/20/23 Sodium 141 mmol/L (135-145) 07/20/23 Potassium 4.8 mmol/L (3.3-5.1) 07/20/23 Chloride 107 mmol/L (96-108) 07/20/23 Carbon Dioxide 26 mmol/L (22-29) 07/20/23 BUN 30 mg/dL (9-16) H 07/20/23 Creatinine 2.29 mg/dL (0.5-1.4) H 07/20/23 Calcium 9.2 mg/dL (8.4-10.2) 07/20/23 Urine Creatinine 37.12 mg/dL 07/20/23 Assessment & Plan Assessment & Plan (1) CKD (chronic kidney disease) stage 4, GFR 15-29 ml/min: Code(s): N18.4 - Chronic kidney disease, stage 4 (severe) Category: Medical Plan . Samantha is a pleasant 83-year-old woman with a history of chronic kidney disease in the setting of longstanding diabetes mellitus hypertension congestive heart failure. I suspect she has sustained acute kidney injury from hypoperfusion from chronic use of NSAIDs. 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 Nevertheless obstructive uropathy and glomerulonephritis should be ruled out although this seems unlikely based on the clinical picture. Recommendations Avoid NSAIDs 2 g sodium diet Optimize fluid intake Renal ultrasonogram to assess echogenicity and to rule out hydronephrosis Maintain A1c less than 7%. Maintain blood pressure less than 130/80 and avoid hypotension. Continue with the SGLT2 inhibitors for cardiorenal protection Agree with low-dose ALIYAH inhibitors and we will monitor his renal function closely. Given the degree of renal insufficiency I would suggest avoiding metformin due to the risk of lactic acidosis. She will return to office once the basic workup was completed. Thank you Orders: Orders IRON PROFILE Today N18.4 - Chronic kidney disease, stage 4 (severe), N18.5 - Chronic kidney disease, stage 5 Vitamin D 25-OH (D2 and D3) Today N18.4 - Chronic kidney disease, stage 4 (severe) Comprehensive Met. Panel Today N18.4 - Chronic kidney disease, stage 4 (severe), N18.9 - Chronic kidney disease, unspecified Uric Acid Today N18.4 - Chronic kidney disease, stage 4 (severe) Parathyroid Hormone Intact Today N18.4 - Chronic kidney disease, stage 4 (severe) US renal BI Today N18.4 - Chronic kidney disease, stage 4 (severe) Coding Level of Care Code New Pt Level 4 (24443) Diagnoses CKD (chronic kidney disease) stage 4, GFR 15-29 ml/min N18.4
[2023-07-31 09:10] VITALS: BP 122/80; PULSE 84; O2SAT 99; BMI 37.4
== END 2023-07-31 09:34 | disposition home or self-care (01) ==
PROVIDERS: PCP Internal Medicine; Referring Provider Internal Medicine; Visit Provider Internal Medicine Hypertension Specialist
DX: N18.4 Chronic kidney disease, stage 4 (severe) (principal)
CPT/HCPCS: 99204

== ENCOUNTER → 2023-07-31 09:03 | Outpatient (BNVA) | payer OTHER, SELFPAY | PROVIDERS: PCP Internal Medicine; Referring Provider Internal Medicine; Visit Provider Internal Medicine Hypertension Specialist | DX: N18.5 Chronic kidney disease, stage 5 (principal) | CPT/HCPCS: 99202 ==

== ENCOUNTER 2023-08-03 09:17 | Outpatient (REF) | payer OTHER, SELFPAY ==
[2023-08-03 11:12] LABS: Parathyroid Hormone Intact 128.7 pg/mL (8.7-77.1)
[2023-08-03 11:20] LABS: Alanine Aminotransferase 7 U/L (0-31); Albumin Level 3.8 g/dL (3.5-5.0); Alkaline Phosphatase 73 U/L (39-117); Anion Gap 16 (12-20); Aspartate Amino Transferase 12 U/L (5-31); Bilirubin Total 0.3 mg/dL (0.0-1.0); Blood Urea Nitrogen 22 mg/dL (9-16); Calcium 9.5 mg/dL (8.4-10.2); Carbon Dioxide 22 mmol/L (22-29); Chloride 108 mmol/L (96-108); Estimated Glomerular Filt Rate 23; Glucose Random 92 mg/dL (60-115); Iron 40 mcg/dL (30-160); Percent Iron Saturation 19 % (15-50); Potassium 5.9 mmol/L (3.3-5.1); Sodium 140 mmol/L (135-145); Total Iron Binding Capacity 211 mcg/dL (228-428); Unsaturated Iron Binding 171 ug/dL
[2023-08-07 14:47] LABS: Vitamin D 25-OH, D2 <4 ng/mL; Vitamin D 25-OH, D3 36 ng/mL; Vitamin D 25-OH, Total 36 ng/mL (30-100)
== END 2023-08-03 09:18 | disposition home or self-care (01) ==
LOC: HO.LAB 09:17
PROVIDERS: PCP Internal Medicine; Visit Provider Internal Medicine Hypertension Specialist
DX: N18.5 Chronic kidney disease, stage 5 (principal)
CPT/HCPCS: 36415; 80053; 82306; 83540; 83970; 84550

== ENCOUNTER 2023-08-09 09:06 | Outpatient (REF) | payer OTHER, SELFPAY ==
--- NOTE | ~2023-08-09 | US_ITS ---
EXAMINATION: US RETROPERITONEAL LIMITED (RENAL ONLY) CLINICAL INFORMATION: Chronic kidney disease, stage 4. COMPARISON: None available. TECHNIQUE: Real-time imaging of the kidneys. Limited visualization due to bowel gas. FINDINGS: RIGHT KIDNEY: 7.5 x 4.2 x 4.4 cm (SAG x AP x TRV). A 0.5 cm right renal midpole cyst with benign features. There is no indication for follow-up imaging. Echogenic foci in the right renal interpolar region, possibly representing calcified vessel and less likely nonobstructive tiny calculi. No hydronephrosis. Kidney appears malrotated, although visualization is limited. LEFT KIDNEY: 7.4 x 4.2 x 3.8 cm (SAG x AP x TRV). No hydronephrosis. No renal calculi. Renal cortical thickness is normal. Limited visualization. Left renal lower pole 0.7 cm pole cyst with benign features. There is no indication for follow-up imaging. US/US renal BI IMPRESSION: Echogenic foci in the right renal interpolar region, possibly representing calcified vessel and less likely nonobstructive tiny calculi. No hydronephrosis.
[2023-08-09 11:36] LABS: Anion Gap 16 (12-20); Blood Urea Nitrogen 21 mg/dL (9-16); Calcium 9.5 mg/dL (8.4-10.2); Carbon Dioxide 23 mmol/L (22-29); Chloride 109 mmol/L (96-108); Estimated Glomerular Filt Rate 20; Glucose Random 77 mg/dL (60-115); Potassium 5.3 mmol/L (3.3-5.1); Sodium 143 mmol/L (135-145)
== END 2023-08-09 09:07 | disposition home or self-care (01) ==
LOC: HO.US 09:06
PROVIDERS: PCP Internal Medicine; Visit Provider Internal Medicine Hypertension Specialist
DX: N18.4 Chronic kidney disease, stage 4 (severe) (principal)
CPT/HCPCS: 36415; 76775; 80048

== ENCOUNTER 2023-08-14 08:55 | Outpatient (AMB) | payer OTHER, SELFPAY ==
[2023-08-14 09:05] VITALS: BP 136/70; PULSE 84; O2SAT 99; BMI 36.6
--- NOTE | 2023-08-14 09:05 | HO.NEPHOV ---
Vital Signs 08/14/23 09:05 Height 4 ft 10 in Weight 175 lb BMI 36.6 BP 136/70 Blood Pressure Location Rt brachial Position Sitting Pulse 84 Pulse Source Pulse Oximeter Pulse Oximetry (%) 99 Oxygen Delivery Method Room Air Intake Visit Reasons: CKD/ 2 weeks fu/ LVM Urology Nurse Required: Yes Urology Nurse Name: Sergio [id number] Accompanied by: LEAD PHARMACY TECHNICIAN Allergies aspirin [ASA] Allergy (Severe, Verified 08/14/23 09:08) FACIAL SWELLING naproxen [NAPROXEN] Allergy (Intermediate, Verified 08/14/23 09:08) NAUSEA & VOMITING hydrocodone [From Vicodin] Allergy (Mild, Verified 08/14/23 09:08) itching NSAIDS (Non-Steroidal Anti-Inflamma [Nsaids] Allergy (Mild, Verified 08/14/23 09:08) itching penicillamine Allergy (Mild, Verified 08/14/23 09:08) itching HPI Comments Details: Samantha is a pleasant 83-year-old woman with a history of longstanding hypertension and diabetes mellitus with congestive heart failure, referred for chronic kidney disease. h/o DM x 20 years HFpEF A.flutter HTN CKD 4 recent serum creatinine was around 2.5 mg/dL and EGFR was around 20 mL/minute. About few years ago serum creatinine was 1.5 mg/dL. She has been taking Ibuprofen for about a month Used to take 2 day. Last dose was about 2 weeks ago. No weight loss No shortness of breath No chest pain No nausea or vomiting No diarrhea No polyuria, oliguria No edema No headache No palpitations or unexplained sweating 08/14/23 Here for follow up No specific complaints Potassium was slightly elevated and creatinine bumped up from baseline. Lisinopril was stopped about a week ago Urology Nurse service was used [facility] Medical History (Updated 07/25/23 @ 09:17 by Penny Andres MD) ROHINI (acute kidney injury) Lumbar pain Right knee pain Left knee pain Right hip pain Left hip pain Right shoulder pain Left hand pain Gout Morbid obesity Hyperlipidemia Lumbar radiculopathy B12 deficiency Normal colonoscopy Adenomatous colon polyp Asthma Acid reflux HTN (hypertension) Surgical History History of surgery History of colonoscopy History of total abdominal hysterectomy and bilateral salpingo-oophorectomy Family History Father No problems noted. Mother No problems noted. Son In good health Son In good health Daughter In good health Daughter In good health Daughter In good health Daughter In good health Social History Household Members Other:: lives alone- has a corporate law specialist Caregiver staying overnight: Yes Housing: Apartment Alcohol intake: never Patient Tobacco Use Status: Former Tobacco user Tobacco use type: Cigarette e-Cigarette/Vaping Use: Never Used Second Hand Smoke Exposure: No service: No Current occupational status: disabled Cognitive needs: Yes Hearing needs: No Vision needs: Yes Physical Exam Vital Signs: Last Vital Signs Pulse 84 08/14/23 09:05 BP 136/70 08/14/23 09:05 Pulse Ox 99 08/14/23 09:05 Oxygen Delivery Method Room Air 08/14/23 09:05 BMI result Body Mass Index 36.6 Const General: comfortable Nutritional Appearance: well nourished Orientation/consciousness: patient oriented x3 HEENT Head: No normal to inspection Mouth: moist mucous membranes Neck Neck: Yes supple and Yes no JVD Resp Auscultation: clear to auscultation bilaterally, no rales and rub present Cardio Jugular venous distension: no JVD Palpation: no palpable S3 and no palpable S4 Heart sounds: no rubs GI Palpation (GI): Soft to palpation and nontender Percussion: No Fluid wave present General: Yes no CVA tenderness Back/Spine/Pelvis Back: no CVA tenderness Skin General skin exam: no rashes or lesions noted Neuro General: patient oriented x3 Extrem General: Yes no pedal edema and No clubbing Results Reviewed Nephrology Results: Hgb 10.0 g/dl (12.0-16.0) L 07/20/23 WBC 5.6 X10*3/uL (4.8-10.8) 07/20/23 Plt Count 194 X10*3/uL (160-400) 07/20/23 Sodium 143 mmol/L (135-145) 08/09/23 Potassium 5.3 mmol/L (3.3-5.1) H 08/09/23 Chloride 109 mmol/L (96-108) H 08/09/23 Carbon Dioxide 23 mmol/L (22-29) 08/09/23 BUN 21 mg/dL (9-16) H 08/09/23 Creatinine 2.34 mg/dL (0.5-1.4) H 08/09/23 Calcium 9.5 mg/dL (8.4-10.2) 08/09/23 PTH Intact 128.7 pg/mL (8.7-77.1) H 08/03/23 Urine Creatinine 37.12 mg/dL 07/20/23 Renal US 08/09/23 Assessment & Plan Assessment & Plan (1) CKD (chronic kidney disease) stage 4, GFR 15-29 ml/min: Code(s): N18.4 - Chronic kidney disease, stage 4 (severe) Category: Medical Plan . Samantha is a pleasant 83-year-old woman with a history of chronic kidney disease in the setting of longstanding diabetes mellitus hypertension congestive heart failure. Underlying chronic kidney disease is most likely due to hypertensive diabetic kidney disease No obstructive uropathy based on renal ultrasound and evidence of glomerulonephritis The EGFR has been between 20 and 25 mL/minute for the last 3 years. This could be her baseline. There could be a small component of ROHINI. Further clinical course we will determine this Recommendations Continue to Avoid NSAIDs 2 g sodium diet Optimize fluid intake Maintain A1c less than 7%. Maintain blood pressure less than 130/80 and avoid hypotension. Continue with the SGLT2 inhibitors for cardiorenal protection Agree with holding ALIYAH inhibitors due to hyperkalemia and worsening renal function Given the degree of renal insufficiency I would suggest avoiding metformin due to the risk of lactic acidosis. Orders: Orders Complete Blood Count Auto Diff 4 Weeks N18.30 - Chronic kidney disease, stage 3 unspecified, N18.4 - Chronic kidney disease, stage 4 (severe) Basic Metabolic Panel 4 Weeks N18.4 - Chronic kidney disease, stage 4 (severe) IRON PROFILE 4 Weeks N18.4 - Chronic kidney disease, stage 4 (severe), N18.5 - Chronic kidney disease, stage 5 Coding Level of Care Code Est Pt Level 4 (15245) Diagnoses CKD (chronic kidney disease) stage 4, GFR 15-29 ml/min N18.4
== END 2023-08-14 09:27 | disposition home or self-care (01) ==
PROVIDERS: PCP Internal Medicine; Visit Provider Internal Medicine Hypertension Specialist
DX: N18.4 Chronic kidney disease, stage 4 (severe) (principal)
CPT/HCPCS: 99214

== ENCOUNTER → 2023-08-14 08:55 | Outpatient (BNVA) | payer OTHER, SELFPAY | PROVIDERS: PCP Internal Medicine; Visit Provider Internal Medicine Hypertension Specialist | DX: N18.4 Chronic kidney disease, stage 4 (severe) (principal) | CPT/HCPCS: 99212 ==

== ENCOUNTER 2023-09-11 09:50 | Outpatient (AMB) | payer OTHER, SELFPAY ==
[2023-09-11 09:50] VITALS: BP 138/92; PULSE 91; O2SAT 97; BMI 35.9
--- NOTE | 2023-09-11 09:50 | HO.NEPHOV ---
Vital Signs 09/11/23 09:50 Height 4 ft 10 in Weight 172 lb BMI 35.9 BP 138/92 H Blood Pressure Location Lt brachial Position Sitting Pulse 91 Pulse Source Pulse Oximeter Pulse Oximetry (%) 97 Oxygen Delivery Method Room Air Intake Visit Reasons: CKD/ 6 MO FU/ Conf w/granddaughter Tank Truck Engine Mechanic Required: Yes Tank Truck Engine Mechanic Name: Donya [id number] Accompanied by: Grand Child Allergies aspirin [ASA] Allergy (Severe, Verified 09/11/23 09:53) FACIAL SWELLING naproxen [NAPROXEN] Allergy (Intermediate, Verified 09/11/23 09:53) NAUSEA & VOMITING hydrocodone [From Vicodin] Allergy (Mild, Verified 09/11/23 09:53) itching NSAIDS (Non-Steroidal Anti-Inflamma [Nsaids] Allergy (Mild, Verified 09/11/23 09:53) itching penicillamine Allergy (Mild, Verified 09/11/23 09:53) itching HPI Comments Details: Samantha is a pleasant 83-year-old woman with a history of longstanding hypertension and diabetes mellitus with congestive heart failure, referred for chronic kidney disease. h/o DM x 20 years HFpEF A.flutter HTN CKD 4 recent serum creatinine was around 2.5 mg/dL and EGFR was around 20 mL/minute. About few years ago serum creatinine was 1.5 mg/dL. She has been taking Ibuprofen for about a month Used to take 2 day. Last dose was about 2 weeks ago. No weight loss No shortness of breath No chest pain No nausea or vomiting No diarrhea No polyuria, oliguria No edema No headache No palpitations or unexplained sweating 08/14/23 Here for follow up No specific complaints Potassium was slightly elevated and creatinine bumped up from baseline. Lisinopril was stopped about a week ago Tank Truck Engine Mechanic service was used 09/11/23 Ran out of [facility] No new issues Lab results pending [facility] Medical History (Updated 07/25/23 @ 09:17 by Penny Andres MD) ROHINI (acute kidney injury) Lumbar pain Right knee pain Left knee pain Right hip pain Left hip pain Right shoulder pain Left hand pain Gout Morbid obesity Hyperlipidemia Lumbar radiculopathy B12 deficiency Normal colonoscopy Adenomatous colon polyp Asthma Acid reflux HTN (hypertension) Surgical History History of surgery History of colonoscopy History of total abdominal hysterectomy and bilateral salpingo-oophorectomy Family History Father No problems noted. Mother No problems noted. Son In good health Son In good health Daughter In good health Daughter In good health Daughter In good health Daughter In good health Social History Household Members Other:: lives alone- has a licensed insurance sales agent Caregiver staying overnight: Yes Housing: Apartment Alcohol intake: never Patient Tobacco Use Status: Former Tobacco user Tobacco use type: Cigarette e-Cigarette/Vaping Use: Never Used Second Hand Smoke Exposure: No service: No Current occupational status: disabled Cognitive needs: Yes Hearing needs: No Vision needs: Yes Physical Exam Vital Signs: Last Vital Signs Pulse 91 09/11/23 09:50 BP 138/92 H 09/11/23 09:50 Pulse Ox 97 09/11/23 09:50 Oxygen Delivery Method Room Air 09/11/23 09:50 BMI result Body Mass Index 35.9 Const General: comfortable Nutritional Appearance: well nourished Orientation/consciousness: patient oriented x3 HEENT Head: No normal to inspection Mouth: moist mucous membranes Neck Neck: Yes supple and Yes no JVD Resp Auscultation: clear to auscultation bilaterally, no rales and rub present Cardio Jugular venous distension: no JVD Palpation: no palpable S3 and no palpable S4 Heart sounds: no rubs GI Palpation (GI): Soft to palpation and nontender Percussion: No Fluid wave present General: Yes no CVA tenderness Back/Spine/Pelvis Back: no CVA tenderness Skin General skin exam: no rashes or lesions noted Neuro General: patient oriented x3 Extrem General: Yes no pedal edema and No clubbing Results Reviewed Nephrology Results: Hgb 10.0 g/dl (12.0-16.0) L 07/20/23 WBC 5.6 X10*3/uL (4.8-10.8) 07/20/23 Plt Count 194 X10*3/uL (160-400) 07/20/23 Sodium 143 mmol/L (135-145) 08/09/23 Potassium 5.3 mmol/L (3.3-5.1) H 08/09/23 Chloride 109 mmol/L (96-108) H 08/09/23 Carbon Dioxide 23 mmol/L (22-29) 08/09/23 BUN 21 mg/dL (9-16) H 08/09/23 Creatinine 2.34 mg/dL (0.5-1.4) H 08/09/23 Calcium 9.5 mg/dL (8.4-10.2) 08/09/23 PTH Intact 128.7 pg/mL (8.7-77.1) H 08/03/23 Urine Creatinine 37.12 mg/dL 07/20/23 Renal US 08/09/23 Assessment & Plan Assessment & Plan (1) CKD (chronic kidney disease) stage 4, GFR 15-29 ml/min: Code(s): N18.4 - Chronic kidney disease, stage 4 (severe) Category: Medical Plan . Samantha is a pleasant 83-year-old woman with a history of chronic kidney disease in the setting of longstanding diabetes mellitus hypertension congestive heart failure. Underlying chronic kidney disease is most likely due to hypertensive diabetic kidney disease No obstructive uropathy based on renal ultrasound and evidence of glomerulonephritis The EGFR has been between 20 and 25 mL/minute for the last 3 years. This could be her baseline. There could be a small component of ROHINI. Recommendations Continue to Avoid NSAIDs 2 g sodium diet Optimize fluid intake Maintain A1c less than 7%. Maintain blood pressure less than 130/80 and avoid hypotension. Continue with the SGLT2 inhibitors for cardiorenal protection Agree with holding ALIYAH inhibitors due to hyperkalemia and worsening renal function Given the degree of renal insufficiency I would suggest avoiding metformin due to the risk of lactic acidosis. Orders: Orders Complete Blood Count no Diff Today N18.4 - Chronic kidney disease, stage 4 (severe) Basic Metabolic Panel 2 Months N18.4 - Chronic kidney disease, stage 4 (severe) Coding Level of Care Code Est Pt Level 4 (32312) Diagnoses CKD (chronic kidney disease) stage 4, GFR 15-29 ml/min N18.4
== END 2023-09-11 10:08 | disposition home or self-care (01) ==
PROVIDERS: PCP Internal Medicine; Visit Provider Internal Medicine Hypertension Specialist
DX: N18.4 Chronic kidney disease, stage 4 (severe) (principal)
CPT/HCPCS: 99214

== ENCOUNTER → 2023-09-11 09:50 | Outpatient (BNVA) | payer OTHER, SELFPAY | PROVIDERS: PCP Internal Medicine; Visit Provider Internal Medicine Hypertension Specialist | DX: N18.4 Chronic kidney disease, stage 4 (severe) (principal) | CPT/HCPCS: 99212 ==

== ENCOUNTER 2023-11-27 08:37 | Outpatient (REF) | payer OTHER, SELFPAY ==
[2023-11-27 09:02] LABS: MANUAL DIFF FLAG NO
[2023-11-27 10:05] LABS: Basophils Absolute Auto 0.1 X10*3/uL (0.0-0.2); Basophils Percent Auto 0.8 % (0-2); Eosinophils Absolute Auto 0.3 X10*3/uL (0.0-0.4); Eosinophils Percent Auto 4.4 % (0-4); Hematocrit 30.6 % (37.0-47.0); Hemoglobin 9.8 g/dl (12.0-16.0); Imm Gran Abs Auto 0.03 X10*3/uL (0.00-0.03); Imm Gran Pct Auto 0.5 % (0.0-0.4); Lymphocytes Percent Auto 15.9 % (20-40); Mean Corpuscular Hemoglobin 32.7 pg (27.0-33.0); Mean Platelet Volume 11.7 fL (9.4-12.3); Monocytes Absolute Auto 0.4 X10*3/uL (0.1-1.2); Monocytes Percent Auto 6.6 % (2-11); Neutrophils Absolute Auto 4.4 x10*3/uL (2.0-8.3); Neutrophils Percent Auto 71.8 % (45-73); Platelet Count 222 X10*3/uL (160-400); White Blood Count 6.2 X10*3/uL (4.8-10.8)
[2023-11-27 11:20] LABS: Anion Gap 16 (12-20); Blood Urea Nitrogen 25 mg/dL (9-16); Calcium 9.1 mg/dL (8.4-10.2); Carbon Dioxide 23 mmol/L (22-29); Chloride 109 mmol/L (96-108); Estimated Glomerular Filt Rate 24; Glucose Random 80 mg/dL (60-115); Iron 54 mcg/dL (30-160); Percent Iron Saturation 26 % (15-50); Potassium 4.6 mmol/L (3.3-5.1); Sodium 143 mmol/L (135-145); Total Iron Binding Capacity 211 mcg/dL (228-428); Unsaturated Iron Binding 157 ug/dL
== END 2023-11-27 08:38 | disposition home or self-care (01) ==
LOC: HO.LAB 08:37
PROVIDERS: PCP Internal Medicine; Visit Provider Internal Medicine Hypertension Specialist
DX: N18.4 Chronic kidney disease, stage 4 (severe) (principal); N18.30 Chronic kidney disease, stage 3 unspecified; N18.5 Chronic kidney disease, stage 5
CPT/HCPCS: 36415; 80048; 83540; 85025; 85027

== ENCOUNTER 2023-11-28 09:04 | Outpatient (AMB) | payer OTHER, SELFPAY ==
[2023-11-28 09:11] VITALS: BP 132/88; PULSE 87; O2SAT 97; BMI 35.9
--- NOTE | 2023-11-28 09:11 | HO.NEPHOV_ITS ---
Vital Signs 11/28/23 09:11 Height 4 ft 10 in Weight 172 lb BMI 35.9 BP 132/88 Blood Pressure Location Lt brachial Position Sitting Pulse 87 Pulse Source Pulse Oximeter Pulse Oximetry (%) 97 Oxygen Delivery Method Room Air Intake Visit Reasons: CKD/ 2 MO FU/ Confirmed Plastics Supervisor Required: Yes Plastics Supervisor Name: [id number] Ambar Accompanied by: ELECTRONEURODIAGNOSTIC TECHNOLOGIST Allergies aspirin [ASA] Allergy (Severe, Verified 11/28/23 09:15) FACIAL SWELLING naproxen [NAPROXEN] Allergy (Intermediate, Verified 11/28/23 09:15) NAUSEA & VOMITING hydrocodone [From Vicodin] Allergy (Mild, Verified 11/28/23 09:15) itching NSAIDS (Non-Steroidal Anti-Inflamma [Nsaids] Allergy (Mild, Verified 11/28/23 09:15) itching penicillamine Allergy (Mild, Verified 11/28/23 09:15) itching HPI Comments Details: Samantha is a pleasant 83-year-old woman with a history of longstanding hypertension and diabetes mellitus with congestive heart failure, referred for chronic kidney disease. h/o DM x 20 years HFpEF A.flutter HTN CKD 4 recent serum creatinine was around 2.5 mg/dL and EGFR was around 20 mL/minute. About few years ago serum creatinine was 1.5 mg/dL. She has been taking Ibuprofen for about a month Used to take 2 day. Last dose was about 2 weeks ago. No weight loss No shortness of breath No chest pain No nausea or vomiting No diarrhea No polyuria, oliguria No edema No headache No palpitations or unexplained sweating 08/14/23 Here for follow up;;No specific complaints;Potassium was slightly elevated and creatinine bumped up from baseline. Lisinopril was stopped about a week ago;Plastics Supervisor service was used 09/11/23 Ran out of [facility];No new issues;Lab results pending 11/28/2023. Loses doing well. No new complaints today. She seems compliant with her medications. Plastics Supervisor service was used. [facility] Medical History (Updated 07/25/23 @ 09:17 by Penny Andres MD) ROHINI (acute kidney injury) Lumbar pain Right knee pain Left knee pain Right hip pain Left hip pain Right shoulder pain Left hand pain Gout Morbid obesity Hyperlipidemia Lumbar radiculopathy B12 deficiency Normal colonoscopy Adenomatous colon polyp Asthma Acid reflux HTN (hypertension) Surgical History History of surgery History of colonoscopy History of total abdominal hysterectomy and bilateral salpingo-oophorectomy Family History Father No problems noted. Mother No problems noted. 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 Caregiver staying overnight: Yes Housing: Apartment Alcohol intake: never Patient Tobacco Use Status: Former Tobacco user Tobacco use type: Cigarette e-Cigarette/Vaping Use: Never Used Second Hand Smoke Exposure: No service: No Current occupational status: disabled Cognitive needs: Yes Hearing needs: No Vision needs: Yes Physical Exam Vital Signs: Last Vital Signs Pulse 87 11/28/23 09:11 BP 132/88 11/28/23 09:11 Pulse Ox 97 11/28/23 09:11 Oxygen Delivery Method Room Air 11/28/23 09:11 BMI result Body Mass Index 35.9 Const General: comfortable; No acute distress Orientation/consciousness: patient oriented x3 Eyes General: appearance normal, both eyes and all related structures Visual Dillon: normal visual dillon by confrontation Neck Neck: Yes supple and Yes no JVD Resp Effort & Inspection: normal respiratory effort and respiratory effort not decreased Auscultation: rhonchi Cardio Palpation: no palpable S3 and no palpable S4 Heart sounds: no rubs GI Inspection: Yes normal to inspection Palpation (GI): Soft to palpation Percussion: Yes normal to percussion Auscultation: normal bowel sounds General: Yes no CVA tenderness Back/Spine/Pelvis Back: no CVA tenderness Skin General skin exam: no petechiae and no purpura Neuro General: patient oriented x3 and no focal motor deficits Extrem General: No clubbing and No edema Results Reviewed Nephrology Results: Hgb 9.8 g/dl (12.0-16.0) L 11/27/23 WBC 6.2 X10*3/uL (4.8-10.8) 11/27/23 Plt Count 222 X10*3/uL (160-400) 11/27/23 Sodium 143 mmol/L (135-145) 11/27/23 Potassium 4.6 mmol/L (3.3-5.1) 11/27/23 Chloride 109 mmol/L (96-108) H 11/27/23 Carbon Dioxide 23 mmol/L (22-29) 11/27/23 BUN 25 mg/dL (9-16) H 11/27/23 Creatinine 2.01 mg/dL (0.5-1.4) H 11/27/23 Calcium 9.1 mg/dL (8.4-10.2) 11/27/23 PTH Intact 128.7 pg/mL (8.7-77.1) H 08/03/23 Urine Creatinine 37.12 mg/dL 07/20/23 Renal US 08/09/23 Assessment & Plan Assessment & Plan (1) CKD (chronic kidney disease) stage 4, GFR 15-29 ml/min: Code(s): N18.4 - Chronic kidney disease, stage 4 (severe) Category: Medical Plan . Samantha is a pleasant 83-year-old woman with a history of chronic kidney disease in the setting of longstanding diabetes mellitus hypertension congestive heart failure. Underlying chronic kidney disease is most likely due to hypertensive diabetic kidney disease No obstructive uropathy based on renal ultrasound and evidence of glomerulonephritis The EGFR has been between 20 and 25 mL/minute for the last 3 years. Recent creatinine was 2.01. This could be her baseline. Recurrent hyperkalemia. She is on Lokelma once a day. Anemia due to chronic kidney disease. Recommendations Continue to Avoid NSAIDs 2 g sodium diet Optimize fluid intake Maintain A1c less than 7%. Maintain blood pressure less than 130/80 and avoid hypotension. Continue with the SGLT2 inhibitors for cardiorenal protection Agree with holding ALIYAH inhibitors due to hyperkalemia and worsening renal function . Continue with Lokelma. Stay on low-potassium diet. We will continue to monitor hemoglobin and reassess for possible need for erythropoietin replacement therapy. Given the degree of renal insufficiency I would suggest avoiding metformin due to the risk of lactic acidosis. Orders: Orders Basic Metabolic Panel 6 Months N18.4 - Chronic kidney disease, stage 4 (severe) Complete Blood Count Auto Diff 6 Months N18.4 - Chronic kidney disease, stage 4 (severe) Basic Metabolic Panel 3 Months N18.4 - Chronic kidney disease, stage 4 (severe) Complete Blood Count Auto Diff 3 Months N18.4 - Chronic kidney disease, stage 4 (severe) Coding Level of Care Code Est Pt Level 4 (58941) Diagnoses CKD (chronic kidney disease) stage 4, GFR 15-29 ml/min N18.4
== END 2023-11-28 09:30 | disposition home or self-care (01) ==
PROVIDERS: PCP Internal Medicine; Visit Provider Internal Medicine Hypertension Specialist
DX: N18.4 Chronic kidney disease, stage 4 (severe) (principal)
CPT/HCPCS: 99214

== ENCOUNTER → 2023-11-28 09:04 | Outpatient (BNVA) | payer OTHER, SELFPAY | PROVIDERS: PCP Internal Medicine; Visit Provider Internal Medicine Hypertension Specialist | DX: E11.22 Type 2 diabetes mellitus with diabetic chronic kidney disease (principal); I13.0 Hypertensive heart and chronic kidney disease with heart failure and stage 1 through stage 4 chronic kidney disease, or unspecified chronic kidney disease; N18.4 Chronic kidney disease, stage 4 (severe); I50.9 Heart failure, unspecified | CPT/HCPCS: 99212 ==

== ENCOUNTER 2024-02-13 09:16 | Outpatient (AMB) | payer OTHER, SELFPAY ==
[2024-02-13 09:16] VITALS: BP 124/86; PULSE 83; O2SAT 99; BMI 36.6
--- NOTE | 2024-02-13 09:16 | HO.NEPHOV_ITS ---
Vital Signs 02/13/24 09:16 Height 4 ft 10 in Weight 175 lb BMI 36.6 BP 124/86 Blood Pressure Location Lt brachial Position Sitting Pulse 83 Pulse Source Pulse Oximeter Pulse Oximetry (%) 99 Oxygen Delivery Method Room Air Intake Visit Reasons: CKD/ LVM Business Department Chair Required: Yes Business Department Chair Name: Reid Houston Accompanied by: LACE SEWER Allergies aspirin [ASA] Allergy (Severe, Verified 02/13/24 09:18) FACIAL SWELLING naproxen [NAPROXEN] Allergy (Intermediate, Verified 02/13/24 09:18) NAUSEA & VOMITING hydrocodone [From Vicodin] Allergy (Mild, Verified 02/13/24 09:18) itching NSAIDS (Non-Steroidal Anti-Inflamma [Nsaids] Allergy (Mild, Verified 02/13/24 09:18) itching penicillamine Allergy (Mild, Verified 02/13/24 09:18) itching Medication List - Last Reconciled 02/13/24 by Garret Vizcaino MD [adult pullups As directed] allopurinol 100 mg PO DAILY 90 days alum-mag hydroxide-simeth 200-200-20 mg/5 mL mL PO amiodarone 200 mg PO .once a day 90 days apixaban (Eliquis) 5 mg PO Q12H blood pressure monitor As directed blood pressure test kit-large (eVariantuch Blood Pressure Monitor kit) As directed blood sugar diagnostic As directed blood sugar diagnostic (FreeStyle Lite Strips) Use 1 strip once a day blood sugar diagnostic (FreeStyle Lite Strips) test daily blood-glucose meter (FreeStyle Lite Meter kit) test daily blood-glucose meter (FreeStyle Lite Meter kit) As directed calcium carbonate (Oyster Shell Calcium) 500 mg PO DAILY 90 days cholecalciferol (vitamin D3) 25 mcg PO DAILY 90 days commode As directed dapagliflozin propanediol (Farxiga) 10 mg PO DAILY 90 days [disposable bedpads As directed] disposable gloves As directed disposable gloves As directed [disposable underwear As directed] ferrous sulfate 325 mg PO DAILY folic acid 1 mg PO DAILY 90 days gabapentin 400 mg PO BID 90 days [incontinence wipes As directed] lancets (FreeStyle Lancets) test daily lancets (FreeStyle Lancets) USe 1 lancet once a day loratadine 10 mg PO DAILY mecobalamin (vitamin B12) 1,000 mcg sublingual BEDTIME 90 days metformin 2,000 mg (2 x 1,000 mg) PO DAILY 90 days methylcellulose (laxative) (Citrucel) 500 mg PO DAILY montelukast 10 mg PO DAILY omeprazole 20 mg PO BEDTIME ondansetron HCl 4 mg PO DAILY PRN 90 days [personal cleansing wipes As directed] sennosides (Natural Senna Laxative) 8.6 mg PO BEDTIME simvastatin 10 mg PO BEDTIME sodium zirconium cyclosilicate (Lokelma) 10 grams PO DAILY 2 days [toilet frame As directed] tramadol 50 mg PO Q6H PRN Transfer Bench As directed triamcinolone acetonide 0.1% 1 appl topical DAILY 14 days underpads (Bed Underpads) As directed walker (Ultra-Light Rollator misc) As directed HPI Comments Details: Samantha is a pleasant 83-year-old woman with a history of longstanding hypertension and diabetes mellitus with congestive heart failure, referred for chronic kidney disease. h/o DM x 20 years HFpEF A.flutter HTN CKD 4 recent serum creatinine was around 2.5 mg/dL and EGFR was around 20 mL/minute. About few years ago serum creatinine was 1.5 mg/dL. She has been taking Ibuprofen for about a month Used to take 2 day. Last dose was about 2 weeks ago. No weight loss No shortness of breath No chest pain No nausea or vomiting No diarrhea No polyuria, oliguria No edema No headache No palpitations or unexplained sweating 08/14/23 Here for follow up;;No specific complaints;Potassium was slightly elevated and creatinine bumped up from baseline. Lisinopril was stopped about a week ago;Business Department Chair service was used 09/11/23 Ran out of [facility];No new issues;Lab results pending 02/13/2024. Samantha doing well. No new complaints today. She seems compliant with her medications. Business Department Chair service was used. [facility] Medical History (Updated 07/25/23 @ 09:17 by Penny Andres MD) ROHINI (acute kidney injury) Lumbar pain Right knee pain Left knee pain Right hip pain Left hip pain Right shoulder pain Left hand pain Gout Morbid obesity Hyperlipidemia Lumbar radiculopathy B12 deficiency Normal colonoscopy Adenomatous colon polyp Asthma Acid reflux HTN (hypertension) Surgical History History of surgery History of colonoscopy History of total abdominal hysterectomy and bilateral salpingo-oophorectomy Family History Father No problems noted. Mother No problems noted. 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 Caregiver staying overnight: Yes Housing: Apartment Alcohol intake: never Patient Tobacco Use Status: Former Tobacco user Tobacco use type: Cigarette e-Cigarette/Vaping Use: Never Used Second Hand Smoke Exposure: No service: No Current occupational status: disabled Cognitive needs: Yes Hearing needs: No Vision needs: Yes Physical Exam Vital Signs: Last Vital Signs Pulse 83 02/13/24 09:16 BP 124/86 02/13/24 09:16 Pulse Ox 99 02/13/24 09:16 Oxygen Delivery Method Room Air 02/13/24 09:16 BMI result Body Mass Index 36.6 Const General: comfortable; No acute distress Orientation/consciousness: patient oriented x3 Eyes General: appearance normal, both eyes and all related structures Visual Olsen: normal visual olsen by confrontation Neck Neck: Yes supple and Yes no JVD Resp Effort & Inspection: normal respiratory effort and respiratory effort not decreased Auscultation: rhonchi Cardio Palpation: no palpable S3 and no palpable S4 Heart sounds: no rubs GI Inspection: Yes normal to inspection Palpation (GI): Soft to palpation Percussion: Yes normal to percussion Auscultation: normal bowel sounds General: Yes no CVA tenderness Back/Spine/Pelvis Back: no CVA tenderness Skin General skin exam: no petechiae and no purpura Neuro General: patient oriented x3 and no focal motor deficits Extrem General: No clubbing and No edema Results Reviewed Nephrology Results: Hgb 9.8 g/dl (12.0-16.0) L 11/27/23 WBC 6.2 X10*3/uL (4.8-10.8) 11/27/23 Plt Count 222 X10*3/uL (160-400) 11/27/23 Sodium 143 mmol/L (135-145) 11/27/23 Potassium 4.6 mmol/L (3.3-5.1) 11/27/23 Chloride 109 mmol/L (96-108) H 11/27/23 Carbon Dioxide 23 mmol/L (22-29) 11/27/23 BUN 25 mg/dL (9-16) H 11/27/23 Creatinine 2.01 mg/dL (0.5-1.4) H 11/27/23 Calcium 9.1 mg/dL (8.4-10.2) 11/27/23 PTH Intact 128.7 pg/mL (8.7-77.1) H 08/03/23 Renal US 08/09/23 Assessment & Plan Assessment & Plan (1) CKD (chronic kidney disease) stage 4, GFR 15-29 ml/min: Code(s): N18.4 - Chronic kidney disease, stage 4 (severe) Category: Medical Plan . Samantha is a pleasant 83-year-old woman with a history of chronic kidney disease in the setting of longstanding diabetes mellitus hypertension congestive heart failure. Underlying chronic kidney disease is most likely due to hypertensive diabetic kidney disease No obstructive uropathy based on renal ultrasound and evidence of glomerulonephritis The EGFR has been between 20 and 25 mL/minute for the last 3 years. Recent creatinine was 2.01. This could be her baseline. Recurrent hyperkalemia. She was on Lokelma once a day. Anemia due to chronic kidney disease. Recommendations Continue to Avoid NSAIDs 2 g sodium diet Optimize fluid intake Maintain A1c less than 7%. Maintain blood pressure less than 130/80 and avoid hypotension. Continue with the SGLT2 inhibitors for cardiorenal protection Agree with holding ALIYAH inhibitors due to hyperkalemia and worsening renal function . Stay on low-potassium diet. Repeat K levels today and assess need for Lokelma We will continue to monitor hemoglobin and reassess for possible need for eryt hropoietin replacement therapy. Given the degree of renal insufficiency I suggest to avoiding metformin due to the risk of lactic acidosis. Orders: Orders Parathyroid Hormone Intact Today N18.4 - Chronic kidney disease, stage 4 (severe) Complete Blood Count no Diff Today N18.4 - Chronic kidney disease, stage 4 (severe) Creatinine 3 Months N18.4 - Chronic kidney disease, stage 4 (severe) Blood Urea Nitrogen 3 Months N18.4 - Chronic kidney disease, stage 4 (severe) Complete Blood Count no Diff 3 Months N18.4 - Chronic kidney disease, stage 4 (severe) Ferritin 3 Months N18.4 - Chronic kidney disease, stage 4 (severe) Blood Urea Nitrogen Today N18.4 - Chronic kidney disease, stage 4 (severe) Creatinine Today N18.4 - Chronic kidney disease, stage 4 (severe) Electrolytes 3 Months E87.1 - Hypo-osmolality and hyponatremia, N18.4 - Chronic kidney disease, stage 4 (severe) IRON PROFILE 3 Months N18.4 - Chronic kidney disease, stage 4 (severe) Medications: Discontinued sodium zirconium cyclosilicate (Lokelma) Discontinued Reason: Patient no longer taking 10 grams PO DAILY 2 days 2 ea 0RF Coding Level of Care Code Est Pt Level 4 (08866) Diagnoses CKD (chronic kidney disease) stage 4, GFR 15-29 ml/min N18.4
== END 2024-02-13 09:32 | disposition home or self-care (01) ==
PROVIDERS: PCP Internal Medicine; Visit Provider Internal Medicine Hypertension Specialist
DX: I13.0 Hypertensive heart and chronic kidney disease with heart failure and stage 1 through stage 4 chronic kidney disease, or unspecified chronic kidney disease (principal); E11.22 Type 2 diabetes mellitus with diabetic chronic kidney disease; N18.4 Chronic kidney disease, stage 4 (severe); I50.9 Heart failure, unspecified
CPT/HCPCS: 99214

== ENCOUNTER 2024-02-13 09:16 | Outpatient (REF) | payer OTHER, SELFPAY ==
[2024-02-13 10:26] LABS: Hematocrit 28.2 % (37.0-47.0); Mean Corpuscular HGB Conc 31.9 g/dl (31.0-35.0); Mean Corpuscular Hemoglobin 32.5 pg (27.0-33.0); Mean Corpuscular Volume 101.8 fL (80.0-98.0); Mean Platelet Volume 11.7 fL (9.4-12.3); Platelet Count 208 X10*3/uL (160-400); Red Blood Count 2.77 X10*6/uL (4.20-5.50); Red Cell Distribution Width 13.9 % (11.0-16.0); White Blood Count 5.8 X10*3/uL (4.8-10.8)
[2024-02-13 11:20] LABS: Parathyroid Hormone Intact 80.7 pg/mL (8.7-77.1)
[2024-02-13 11:44] LABS: Anion Gap 15 (12-20); Blood Urea Nitrogen 26 mg/dL (9-16); Calcium 9.4 mg/dL (8.4-10.2); Carbon Dioxide 20 mmol/L (22-29); Chloride 109 mmol/L (96-108); Estimated Glomerular Filt Rate 25; Glucose Random 105 mg/dL (60-115); Potassium 5.3 mmol/L (3.3-5.1); Sodium 139 mmol/L (135-145)
== END 2024-02-13 09:17 | disposition home or self-care (01) ==
LOC: HO.LAB 09:16
PROVIDERS: PCP Internal Medicine; Visit Provider Internal Medicine Hypertension Specialist
DX: N18.4 Chronic kidney disease, stage 4 (severe) (principal)
CPT/HCPCS: 36415; 80048; 83970; 85027; 99212

== ENCOUNTER 2024-04-29 08:40 | Outpatient (REF) | payer OTHER, SELFPAY ==
--- OUTSIDE RECORDS SUMMARY | 2024-04-29 12:48 | XMS_ITS ---
Author Name Antonieta Pérez NP Address [address] [place] [address] Phone [phone] [facility] Care Team Providers Care Grade And Center Marker Name Role Phone Antonieta Pérez Unavailable [phone] Unavailable Unavailable Unavailable Signed ORDERS, [facility] Unavailable Orders, [facility] Unavailable [phone] Unavailable Unavailable [phone] [facility] Unavailable Unavailable Unavailable Unavailable DERIK HYDE Unavailable [phone] Reason for Referral Not Available Allergies, adverse reactions, alerts Allergen Type Reaction Severity Status Onset Date Penicillin Allergy to substance (disorder) facial swelling S evere Active N/A Aspirin Allergy to substance (disorder) facial swelling Un known Active N/A History of medication use Medication Class Instructions Start Date End Date Allopurinol 100 mg Tab 1 tablet orally 1 times per day 2021-08-24 No Data Available Simvastatin 10 mg Tab 1 tab by mouth at bedtime 08-31 No Data Available Gabapentin 400 mg Cap 1 Cap by mouth at bedtime -05 No Data Available Famotidine 40 mg Tab TAKE 1 TABLET BY MO UTH AT BEDTIME 2021-09-29 2024-01-09 Ferrous Sulfate 325 (65 Fe) MG Tab 1 tab every other day 2021-09-29 2024-01-09 metFORMIN 1000 mg Tab 1 tab by mouth BID 2021-09-29 No Data Available Metoprolol Tartrate 25 mg Tab TAKE 3 TABLETS BY MOUTH EVERY DAY 2021-09-29 No Data Available Montelukast Sodium 10 mg Tab 1 tablet orally daily PM 2021-09-29 No Data Available Ondansetron 4 mg Tab TAKE 1 TABLET BY MO UTH EVERY DAY NEEDED FOR NAUSEA AND VOMITING 2021-09-29 No Data Available Senna-Time 8.6 mg Tab TAKE 1 TABLET BY M OUTH AT BEDTIME FOR CONSTIPATION 2021-04-29 No Data Available VITAMIN B-12 1,[address] 1 TABLET UNDER TONGUE AND ALLOW TO DISSOLVE AT LEAST 30 SECONDS BEFORE SWALLOWING 2021-09-29 2024-01-09 VITAMIN D3 1,000 UNIT SOFTGEL 1 capsule by mouth daily 2021-09-29 No Data Availab le Folic Acid 1 mg Tab take 1 tablet orally once daily 2021-09-29 No Data Available Loratadine 10 mg Tab 1 tab po daily 2021-09-29 No Da ta Available Eliquis 5 mg Tab 1 Tablet twice daily 2022-05-02 No Data Available Amiodarone 200 mg Tab 1 tablets orally daily 2022-04-05 0 No Data Available ProAir HFA 108 (90 Base) MCG/ACT Aerosol Solution Inhalation 2 inhalations every 3 hours as needed. 2022-05-02 No Data Available Lisinopril 2.5 mg Tab TAKE 1 TABLET BY M OUTH EVERY DAY 2023-07-13 No Data Available Farxiga 10 mg Tab 1 tablet by mouth daily 2023-04-23 No Data Available Omeprazole 20 mg Cap delayed rel TAKE 1 CAPSULE BY MOUTH AT BEDTIME 2023-05-13 No Data Available Problem List Problem Status Onset Date Resolved Date Gout Active 2022-05-02 N/A Asthma Active 2022-05-02 N/A Morbid obesity with BMI of 45.0-49.9, adult Active 2024-01-09 N/A Type 2 diabetes mellitus with hyperlipidemia Active 2022-03-03 N/A Atrial fibrillationHypercoag ulable state due to atrial fibrillation, unspecified typePacemaker Active 2024-01-09 N/A Retinopathy, diabetic, bilateral Active N/A Other problems related to [facility] facilities and other health care Active 2024-01-09 N/A Forgetfulness Active 2024-01-09 N/A GERD (gastroesophageal reflux disease) Active 25-01-08 N/A CKD (chronic kidney disease) Active 2024-01-09 N/A Heart disease, hypertensive, with heart failure Active 2024-01-09 N/A Encounters Encounters Type Facility Date of Service Diagnosis/Co mplaint Medication List Documented (1159F) [facility] ([place]20[place] Medication List Documented (1159F) [facility] [place] Medication List Documented (1159F) [facility] Medication List Documented (1159F) [facility] Medication List Documented (1159F) [facility] Medication List Documented (1159F) [facility]20[place] Type 2 diabetes mellitus wit hout complications New patient,40-59min; chronic exacerbation, 2 stable chronic or 1 acute illness add add modifier 95 for video (do not use for phone, instead use [id number]) [facility] ([place] 05[place]02[place]2022 Type 2 diabetes mellitus wit h other specified complicationHyperlipidemia, unspecifiedType 2 diabetes mellitus with other circulatory complicationsHypertension secondary to endocrine disordersGout, unspecifiedGastro-esophageal reflux disease without esophagitisMorbid (severe) obesity due to excess caloriesBody mass index (BMI) 40.0-44.9, adultUnspecified asthma, uncomplicated New patient,40-59min; chronic exacerbation, 2 stable chronic or 1 acute illness add add modifier 95 for video (do not use for phone, instead use 29670-65) [facility] ([place] 05[place]2022 New patient,40-59min; chronic exacerbation, 2 stable chronic or 1 acute illness add add modifier 95 for video (do not use for phone, instead use 43137-39) [facility] ([place] 05[place]2022 New patient,40-59min; chronic exacerbation, 2 stable chronic or 1 acute illness add add modifier 95 for video (do not use for phone, instead use 78905-70) [facility] ([place] 05[place]2022 New patient,40-59min; chronic exacerbation, 2 stable chronic or 1 acute illness add add modifier 95 for video (do not use for phone, instead use 25136-57) [facility] ([place] 05/02/2022 New patient,40-59min; chronic exacerbation, 2 stable chronic or 1 acute illness add add modifier 95 for video (do not use for phone, instead use 36212-26) [facility], ([place]) 05/02/2022 New patient,40-59min; chronic exacerbation, 2 stable chronic or 1 acute illness add add modifier 95 for video (do not use for phone, instead use 93931-61) [facility] [place] New patient,40-59min; chronic exacerbation, 2 stable chronic or 1 acute illness add add modifier 95 for video (do not use for phone, instead use 13330-43) [facility] [place] 05/[place]/2022 Estab. patient 30-39min; chronic exacerbation, 2 stable chronic or 1 acute illness add add modifier 95 for video, (do not use for phone, instead use 44878-34) [facility] ([place] 01/09/2024 Type 2 diabetes mellitus wit h other specified complicationHyperlipidemia, unspecifiedGout, unspecifiedUnspecified asthma, uncomplicatedHyp hrt & chr kdny dis w hrt fail and stg 1-4/unsp chr kdnyHeart failure, unspecifiedChronic kidney disease, unspecifiedType 2 diabetes mellitus with diabetic chronic kidney diseaseUnspecified atrial fibrillationOther thrombophiliaType 2 diabetes w unsp diabetic rtnop w/o macular edemaOther general symptoms and signsGastro-esophageal reflux disease without esophagitisNicotine dependence, unspecified, in remissionMorbid (severe) obesity due to excess caloriesBody mass index (BMI) 45.0-49.9, adultPresence of cardiac pacemakerOther problems related to medical facilities and other health care Estab. patient 30-39min; chronic exacerbation, 2 stable chronic or 1 acute illness add add modifier 95 for video, (do not use for phone, instead use 82328-03) [facility] ([place] 01/[place]/20[place] Estab. patient 30-39min; chronic exacerbation, 2 stable chronic or 1 acute illness add add modifier 95 for video, (do not use for phone, instead use 08534-54) [facility] ([place] 01/09/2024 Estab. patient 30-39min; chronic exacerbation, 2 stable chronic or 1 acute illness add add modifier 95 for video, (do not use for phone, instead use 85516-46) [facility] ([place] 01/09/2024 Estab. patient 30-39min; chronic exacerbation, 2 stable chronic or 1 acute illness add add modifier 95 for video, (do not use for phone, instead use 05782-96) [facility] ([place] 01/09/2024 Estab. patient 30-39min; chronic exacerbation, 2 stable chronic or 1 acute illness add add modifier 95 for video, (do not use for phone, instead use 59802-50) [facility] ([place]) 01/09/2024 Estab. patient 30-39min; chronic exacerbation, 2 stable chronic or 1 acute illness add add modifier 95 for video, (do not use for phone, instead use 96673-33) [facility], ([place] 01/09/2024 Estab. patient 30-39min; chronic exacerbation, 2 stable chronic or 1 acute illness add add modifier 95 for video, (do not use for phone, instead use 93680-16) [facility] ([place] 01/09/2024 Vital Signs Date of Collection Vitals 2022-02-15 13:08:05 Height - 152.4 cm 2022-05-02 11:11:12 Height - 149.86 cmWe ight - 90.72 kgBody Mass Index (BMI) - 40.4 kg/m2 2024-01-09 06:11:53 Height - 132.08 cmWe ight - 81.65 kgBody Mass Index (BMI) - 46.8 kg/m2Pain Scale - 5.0 {score} Social History Social History Social History Observation Description Effec tive Time Current Smoking Status Former smoker 2024-04-04 7 Sex Female Gender identity Woman History of Procedures Procedures Service Procedure code Service date Servicing provider Phone# Medication List Documented (1159F) 1159F 2022-02-15 No Data Available No Data Keyanna ilable Medication Review by prescribing provider or pharmacist documented (1160F) 1160F 2022-02-15 No Data Available No Data Keyanna ilable Functional Status Assessed (1170F) 1170F 2022-02-15 No Data Available No Data Avail able Advance Care Directive Advance care planning discussion documented in the medical record (1158F) 1158F 2022-02-15 No Data Available No Data Availa ble Pain Assessment - Pain Documented (1125F) 1125F 2022-02-15 No Data Available No Data Availa ble No Data Available 34685 2022-02-15 No Data Available No Data Available New patient,40-59min; chronic exacerbation, 2 stable chronic or 1 acute illness add add modifier 95 for video (do not use for phone, instead use 23297-77) 28607 2022-05-02 No Data Available No Data Availa ble Pain Assessment - NO pain present (1126F) 1126F 2022-05-02 No Data Available No Data A vailable Medication List Documented (1159F) 1159F 2022-05-02 No Data Available No Data Keyanna ilable Medication Review by prescribing provider or pharmacist documented (1160F) 1160F 2022-05-02 No Data Available No Data Keyanna ilable Functional Status Assessed (1170F) 1170F 2022-05-02 No Data Available No Data Avail able Advance Care Directive Advance care planning discussion documented in the medical record (1158F) 1158F 2022-05-02 No Data Available No Data Availa ble BMI obtained (3008F) 3008F 2022-05-02 No Data Availab le No Data Available Medications prescribed in hospital were reviewed and reconciled against what they were taking prior to admission during today's visit. (1111F) 1111F 2022-05-02 No Data Available No Data Availa ble Estab. patient 30-39min; chronic exacerbation, 2 stable chronic or 1 acute illness add add modifier 95 for video, (do not use for phone, instead use [id number]) 73995 2024-01-09 No Data Available No Data Availa ble Medication List Documented (1159F) 1159F 2024-01-09 No Data Available No Data Keyanna ilable Medication Review by prescribing provider or pharmacist documented (1160F) 1160F 2024-01-09 No Data Available No Data Keyanna ilable Pain Assessment - Pain Documented (1125F) 1125F 2024-01-09 No Data Available No Data Availa ble BMI obtained (3008F) 3008F 2024-01-09 No Data Availab le No Data Available Advance Care Directive Advance care planning discussion documented in the medical record (1158F) 1158F 2024-01-09 No Data Available No Data Availa ble Advance care planning discussed and documented ? advance care plan or surrogate decision-maker was documented in the medical record. (1123F) 1123F 2024-01-09 No Data Available No Data Availa ble Functional Status Assessed (1170F) 1170F 2024-01-09 No Data Available No Data Avail able Functional Status Functional Category Effective Dates Cognition Status: Dementia - mild 2023-04 0-08 ADL: Bathing Needs Assistanc e , Dressing Needs Assistance , Eating Independent , Ambulation Independent , Transferring Independent and Toileting Independent 2024-01-09 IADL: Medication Needs Gayle tance , Meal Prep Needs Assistance , Shopping Needs Assistance , Driving or Public Transport Needs Assistance , Housework Needs Assistance , Finances Needs Assistance 2024-01-09 How many falls within the last 6 months? None 2024-01-09 Near falls within the last 6 months? Non e 2024-01-09 Do you feel unsteady on your feet? Yes Do you worry about falling? Yes DME used with ambulation: Walker 2024-01 Social Supports - # of Inter actions with Friends/Family in a typical week: family 2024-01-09 Mental Status Status Date Patient alert and oriented x1, forgetful 2024-01-09 caregiver: goes daily 2024-01-09 Assessments Date of Service Assessments 2022-02-15 13:08:05 Type 2 diabetes rita itus 2022-05-02 11:11:12 Type 2 diabetes rita itus without complication, with no history of insulin useGoutGERD (gastroesophageal reflux disease)Morbid obesityAsthma 2024-01-09 06:11:53 Type 2 diabetes rita itus with hyperlipidemiaGoutAsthmaHeart disease, hypertensive, with heart failureAtrial fibrillationHypercoagulable state due to atrial fibrillation, unspecified typePacemakerGERD (gastroesophageal reflux disease)Morbid obesity with BMI of 45.0-49.9, adultForgetfulnessRetinopathy, diabetic, bilateralOther problems related to medical facilities and other health careCKD (chronic kidney disease) Plan of Care Date of Service Plans 2022-02-15 13:08:05 Medication Review by prescribing provider or pharmacist documented (1160F)Medication List Documented (1159F)Functional Status Assessed (1170F)Advance Care Directive Advance care planning discussion documented in the medical record (1158F)Pain Assessment - Pain Documented (1125F)Televideo new patient,40-59min; chronic exacerbation, 2 stable chronic or 1 acute illness add modifier 95Continue to see PCP. Follow-up with [facility] as needed for any acute or disease education needs that may arise. Continue to see PCP. Follow-up with [facility] as needed for any acute or disease education needs that may arise.On metformin 2022-05-02 11:11:12 Medication Review by prescribing provider or pharmacist documented (1160F)Medication List Documented (1159F)Functional Status Assessed (1170F)Advance Care Directive Advance care planning discussion documented in the medical record (1158F)BMI obtained (3008F)Pain Assessment - Pain Documented (1125F)Televideo new patient,40-59min; chronic exacerbation, 2 stable chronic or 1 acute illness add modifier 95Medications prescribed in hospital were reviewed and reconciled against what they were taking prior to admission during today's visit. (1111F)Continue to see PCP. Follow-up with [facility] as needed for any acute or disease education needs that may arise.Continue metformin, Eliquis, amiodarone, metoprololTest BS daily, check BP daily with automatic bp cuffEat food low in sugar, exercise 30min daily,Follow up with PCP annuallycontinue on allopurinolF/u with PCP annuallycontinue famotidine, Keep head elevated half hour after you eatFollow up with PCP annuallyBMI 40HTN, DMContinue ProAir, I ordered a nebulizer for emergency situations if they arisef/u with pcp annuallycontinue having such a close family 2024-01-09 06:11:53 Televideo 30-39min; chronic exacerbation, 2 stable chronic or 1 acute illness add modifier 95Functional Status Assessed (1170F)BMI obtained (3008F)Advance Care Directive Advance care planning discussion documented in the medical record (1158F)Advance care planning discussed and documented ? advance care plan or surrogate decision-maker was documented in the medical record. (1123F)Pain Assessment - Pain Documented (1125F)Advance Care Directive Advance care planning discussion documented in the medical record (1158F)Medication Review by prescribing provider or pharmacist documented (1160F)Continue to see PCP. Follow-up with [facility] as needed for any acute or disease education needs that may arise.FBG 173 (01/09/2024) Rx: farxiga, metformin- patient education the importance of diabetic diet, exercise, medication compliance. patient education on hypoglycemia and hyperglycemia signs and symptoms. monitor daily BGL. patient to assess feet daily for any cuts or wounds and to notify pcp or [facility] as soon as possible. Rx: simvastatinweight management, exercising regularly, eating a diet low in saturated or transfat, no smoking, and limiting alcohol intake.Rx: allopurinol Member to follow low purine dietRx: montelukast, pro-air Patient to avoid triggers, if patient experiences exacerbations to call CB and pcpRx: lisinopril, metoprolol Monitor BP routinely, low salt diet, exercise as tolerable, and continue f/u care with PCP.Rx: amiodarone, eliquis - cardiac diet, low NA intake, control BP and cholesterol levels, limit caffeine intake, and no alcohol. sees ordnance truck installation supervisor yearlyRx: omeprazole Don't lie down for at least 2 to 3 hours after eating small meals, avoid fatty foods, avoid spicy food, avoid chocolate, avoided caffeinated drinks, avoid alcoholic beverages.patient educated on the importance of diet compliance or modifications and exercise as toleratedpatient unable to provide me with her , year or location. patient assisted by her son as per son and patient patient does not have hx. of dementia or Alzheimer's and she is not forgetful.sees senior clinical research scientist every 4 monthsFALL CONTINGENCY PLANMember to call for the following symptoms: Blood sugar <80??/ BP <110/70??/ Fall??/ WeaknessPlanned intervention: Encourage extra fluid intake / Assess for change in mental status and provide reassurance if none (patient's Baseline is _) / Review importance of sitting for two to three minutes prior to standing after laying downAvoid nephrotoxic medications (NSAIDS, high dose Gabapentin, Baclofen, Fleet Enema, Morphine/Codeine)sees direct marketing intern every 4 monthsunable to find gfr lab work Goals Date Goal 2022-02-15 Remember to 2022-02-15 Call me if 2022-02-15 Keep it up 2022-02-15 Remember to 2022-02-15 Call me if 2022-02-15 Keep it up 2022-05-02 take all your medica tion on time 2022-05-02 make sure you follow up on all visits 2024-01-09 At least 50% of time spent counseling pt, discussing diagnosis, treatment plan, compliance, and coordinating followup care. Continue taking medications as directed and keep all follow up appointments with established PCP and Specialist Health Concerns Date Concern 2024-01-09 Visit completed valerio doan audio/video.Patient/Guardian agreed to visit via telehealth. Informed verbal consent was obtained from this patient to communicate and provide care using virtual and other telecommunications tools. This patient has been explained the risks, if any, related to the encounter. I explained that care provided through video or audio communication cannot replace the need for physical examination or an in-person visit for some disorders or urgent problems. Reviewed Allergies, Medications, Active Medical conditions, past medical/surgical history, Social history. 2024-01-09 Most recent hospital stay(s) or ER visit(s) and precipitating factors: no recent ER visits
--- OUTSIDE RECORDS SUMMARY | 2024-04-29 12:49 | XMS_ITS | Encounter Summary ---
Author Organization [facility] Address [address] [place] [address] Care Team Providers Care Esthetician/Skin Therapist Name Role Phone Penny Andres MD Primary Care Provider [phone] Encounter Details Date Type Department Care Team (Late st Contact Info) Description 04/09/2024 12:25 PM EST Ancillary Procedure [facility] Cardiology [facility] [address] [facility] [address] [place] [phone] Social History Tobacco Use Types Packs/Day Years Used Date Smoking Tobacco: Never Passive Smoke Exposure: Never Smokeless Tobacco: Never Alcohol Use Standard Drinks/Week Comments Never 0 (1 standard drink = 0.6 oz pur e alcohol) Sex and Gender Information Value Date Recorded Sex Assigned at Not on file Gender Identity Not on file Sexual Orientation Not on file Job Start Date Occupation Industry Not on file Not on file Not on file documented as of this encounter Plan of Treatment Upcoming Encounters Date Type Department Care Team (Late st Contact Info) Description 07/02/2024 8:30 AM EDT Ancillary Procedure [facility] Cardiology [facility] [address] [facility] [address] [place] [address] 08/22/2024 1:10 PM EDT Office Visit [facility] [address] [facility] [address] [place] [phone] Davie Zepeda NP [address] [place] [address] documented as of this encounter Procedures Procedure Name Priority Date/Time Associated Diagnosis Comments CARDIAC DEVICE CHECK- REMOTE- MURJ Routine 04/09/2024 12:22 PM EST documented in this encounter Results * Cardiac device check - Remote- MURJ (04/09/2024 12:22 PM EST) Date Time Interrogation Session [id number] CV DEVICE CHECK Type Interrogation Session Remote CV DEVICE CHECK Implantable Pulse Generator Lining Scrubber MDT CV DEVICE CHECK Implantable Pulse Generator Type IPG CV DEVICE CHECK Implantable Pulse Generator Model Isamar XT DR MRI [id number] CV DEVICE CHECK Implantable Pulse Generator Serial Number [id number] CV DEVICE CHECK Implantable Pulse Generator Implant Date 20220425 CV DEVICE CHECK Battery Remaining Longevity 141.0 CV DEVICE CHECK Battery Voltage 3.020 CV D EVICE CHECK Battery BOOM CRANE OPERATOR Trigger 2.625 CV DEVICE CHECK Battery Status Middle of Service CV DEVICE CHECK Emmanuel Statistic RA Percent Paced 94.28 CV DEVICE CHECK Emmanuel Statistic RV Percent Paced 0.34 CV DEVICE CHECK Atrial Tachy Statistic AT/AF [place] Percent 0.20 CV DEVICE CHECK Lead Channel Sensing Intrinsic Amplitude 1.250 CV DEVICE CHECK Lead Channel Setting Sensing Sensitivity 0.30 CV DEVICE CHECK Lead Channel Impedance Value 342 CV DEVICE CHECK Lead Channel Pacing Threshold Amplitude 0.625 CV DEVICE CHECK Lead Channel Pacing Threshold Pulse Width 0.4 CV DEVICE CHECK Lead Channel RA Pacing Threshold Date 2024-03-27 CV DEVICE CHECK Lead Channel Setting Pacing Amplitude 1.500 CV DEVICE CHECK Lead Channel Setting Pacing Pulse Width 0.4 CV DEVICE CHECK Lead Channel Sensing Intrinsic Amplitude 8.625 CV DEVICE CHECK Lead Channel Setting Sensing Sensitivity 0.90 CV DEVICE CHECK Lead Channel Impedance Value 532 CV DEVICE CHECK Lead Channel Pacing Threshold Amplitude 0.750 CV DEVICE CHECK Lead Channel Pacing Threshold Pulse Width 0.4 CV DEVICE CHECK Lead Channel RV Pacing Threshold Date 2024-04-02 CV DEVICE CHECK Lead Channel Setting Pacing Amplitude 2.000 CV DEVICE CHECK Lead Channel Setting Pacing Pulse Width 0.4 CV DEVICE CHECK Emmanuel Setting Mode (NBG Code) AAIR<=>DDDR CV DEVICE CHECK Emmanuel Setting Lower Rate Limit 60 CV DEVICE CHECK Emmanuel Setting AT Mode Switch Rate 171 CV DEVICE CHECK Emmanuel Setting Maximum Tracking Rate 130 CV DEVICE CHECK Emmaunel Setting Maximum Sensor Rate 130 CV DEVICE CHECK Emmanuel Setting PAV Delay 180 CV DEVICE CHECK Emmanuel Setting SIGIFREDO Delay 150 CV DEVICE CHECK Zone Setting Type Category AT/AF CV DEVICE CHECK Rate 171 CV DEVICE CHECK Therapies Some Rx Off CV DEVIC E CHECK Zone Setting Status Monitor CV DEVICE CHECK Zone ID 2 CV DEVICE CHECK Zone Setting Type Category VT CV DEVICE CHECK Rate 150 CV DEVICE CHECK Zone Setting Status ENABLED CV DEVICE CHECK Zone ID 6 CV DEVICE CHECK Date of Service 2024-04-13 CV DEVICE CHECK Anatomical Region Laterality Modality Device Interroga tion 04/02/2024 4:10 AM EST Impressions 04/09/2024 11:54 AM EST Normal Remote: No Events * Normal Device Function * Alerts or events: None * Battery: OK, 11.75 yrs * Sensing, impedance and thresholds reviewed * Programmed parameters reviewed * Presenting rhythm reviewed * Heart Rate Histograms reviewed * No significant changes noted Narrative Procedure Note Carlie Castellon PA - 04/09/2024 IMPRESSION: Normal Remote: No Events * Normal Device Function * Alerts or events: None * Battery: OK, 11.75 yrs * Sensing, impedance and thresholds reviewed * Programmed parameters reviewed * Presenting rhythm reviewed * Heart Rate Histograms reviewed * No significant changes noted Carlie STREETER CV IMPLANTABLE CARDI AC DEVICE PROCEDURES documented in this encounter Visit Diagnoses Not on filedocumented in this encounter Care Teams Esthetician/Skin Therapist Relationship Specialty Start Date End Date Penny Andres MD [address] [place] [address] , [facility] [address] [facility] D/B/A: [facility] TRELL Grubbs PCP - General 06/27/22 documented as of this encounter
--- OUTSIDE RECORDS SUMMARY | 2024-04-29 12:49 | XMS_ITS | Encounter Summary ---
Author Organization [facility] Address [address] [place] [address] Care Team Providers Care Pretzel Cooker Name Role Phone Penny Andres MD Primary Care Provider [phone] Reason for Visit * Reason Onset Date Comments Appointment 04/23/2024 F/u booked too s oon Encounter Details Date Type Department Care Team (Late st Contact Info) Description 04/23/2024 Telephone [facility] [address] [facility] [address] [place] [phone] Shelli Mayfield [place] Appointment (F/u booked too soon) Social History Tobacco Use Types Packs/Day Years [...] on file documented as of this encounter Progress Notes * Shelli Mayfield MA - 04/24/2024 3:15 PM EST I spoke to family member Dimple (listed on contact list) and she is aware of the below. The patient is feeling well and has not been hospitalized. She agrees that appt can be moved to August 2024 for 6 month f/u please reschedule. I have cancelled her appt for 04/25/24 * Shelli Mayfield MA - 04/23/2024 1:17 PM EST Images from the original note were not included. The patient was last seen on and said to follow up in 6 months Instructions Follow up in about 6 months (around 08/18/2024). The patient is booked with [facility] on 04/25/24. I have left a voicemail for the patient. If she is feeling well and in a stable state then she can be rescheduled. If she returns the call please address this. documented in this encounter Plan of Treatment Upcoming Encounters Date Type Department Care Team (Late st Contact Info) Description 07/02/2024 8:30 AM EDT Ancillary Procedure [facility] Cardiology [facility] [address] [facility] [address] [place] [address] 08/22/2024 1:10 PM EDT Office Visit [facility] [address] [facility] [address] [place] [address] Davie Zepeda, SANDRA [address] [place] [address] documented as of this encounter Visit Diagnoses Not on filedocumented in this encounter Care Teams Pretzel Cooker Relationship Specialty Start Date End Date Penny Andres MD [address] [facility] , [facility] [address] [facility] D/B/A: [facility] TRELL Grubbs PCP - General 06/27/22 documented as of this encounter
--- OUTSIDE RECORDS SUMMARY | 2024-04-29 12:49 | XMS_ITS | Clinical Summary ---
Author Organization [address] [facility] Address [address] [place] [address] Phone Care Team Providers Care Pipe Line Maintenance Supervisor Name Role Phone Penny Andres MD Primary Care Provider [phone] Allergies Active Allergy Reactions Criticality Noted Date Comments Aspirin 06/21/2022 Penicillins 06/21/2022 Medications Medication Sig Dispensed Refills Start Date End Date Status amiodarone (PACERONE) 200 mg tablet Take 1 tablet (200 mg total) by mouth 1 (one) time each day. 12/09/2022 Active apixaban (ELIQUIS) 5 mg tablet Take 1 tablet (5 mg total) by mouth 2 (two) times a day. Active cholecalciferol (VITAMIN D-3) 25 mcg (1,000 unit) capsule Take by mouth. Active dapagliflozin propanediol (FARXIGA) 10 mg tablet Take by mouth daily. Active famotidine (PEPCID) 40 mg tablet Take 1 Tablet by mouth at bedtime. Active ferrous sulfate 325 mg (65 mg elemental iron) tablet Take 1 tablet (325 mg total) by mouth 1 (one) time each day. Active folic acid (FOLVITE) 1 mg tablet Take 1 tablet (1,000 mcg total) by mouth 1 (one) time each day. Active gabapentin (NEURONTIN) 400 mg capsule Take 1 capsule (400 mg total) by mouth 2 (two) times a day. Active loratadine (CLARITIN) 10 mg tablet Take 1 tablet (10 mg total) by mouth 1 (one) time each day. Active metFORMIN (GLUCOPHAGE) 1,000 mg tablet Take 1 Tablet by mouth 2 times daily (with meals). Active metoprolol tartrate (LOPRESSOR) 25 mg tablet Take 1 tablet (25 mg total) by mouth 2 (two) times a day. Active montelukast (SINGULAIR) 10 mg tablet Take 1 Tablet by mouth at bedtime. Active omeprazole 20 mg tablet,disintegrat, delay rel Take by mouth. Active simvastatin (ZOCOR) 10 mg tablet Take 1 Tablet by mouth at bedtime. Active traMADoL (ULTRAM) 50 mg tablet Take 1 Tablet by mouth every 6 hours as needed. Patient only was given 10 tablets Active sennosides (SENNA ORAL) Take 1 Tab ER by mouth if needed. Active Active Problems Problem Noted Date Diagnosed Date SSS (sick sinus syndrome) 12/09/2022 Overview (02/19/2024): - Status post urgent placement of a Medtronic dual-chamber left bundle pacer by Dr. Padilla on 04/25/2022 -Device check in March 2023 alerted that she was in atrial arrhythmia greater than 20% of the time but in looking at histograms, it seems like she was in persistent atrial flutter or atrial tachycardia with ventricular rates in the 110s to 120s at least from January 2023 to June 2023 at which point she spontaneously converted out -Most recent device check in January 2024 showed normal device function, no arrhythmias, 94% a pacing, less than 1% V pacing Last Assessment & Plan: Continue device clinic follow-up-I will inquire about whether or not she has had a subsequent device check and it just has not been scanned into the chart Assessment & Plan (02/19/2024 3:15 PM EST): Continue device clinic follow-up-I will try to figure out where the lapse in communication occurred to prevent this from happening in the future. (HFpEF) heart failure with preserved ejection fr action 12/09/2022 Overview (01/04/2024): - Had HFpEF symptoms while in a flutter with RVR but was clinically euvolemic so it is unclear if it was truly HFpEF or just a subjective awareness of her higher heart rates - ROMAN from April 2022 showed EF of 50 to 55% with normal regional wall motion, severe biatrial enlargement, normal RV size with mildly reduced systolic function, no hemodynamically significant valve disease, likely normal pulmonary artery systolic pressure Last Assessment & Plan: Euvolemic today on exam, chronic, unchanged dyspnea with more than ordinary exertion that is more likely related to deconditioning, obesity, aging, I do not believe she warrants a maintenance diuretic, CT of the chest to rule out amiodarone induced lung toxicity Assessment & Plan (02/19/2024 3:15 PM EST): Euvolemic on exam today without decompensated heart failure symptoms. Continue current Farxiga 10 mg daily, does not require a loop diuretic as she is euvolemic Hyperlipidemia 06/21/2022 Overview (01/04/2024): Last Assessment & Plan: Continue low-dose simvastatin 10 mg at bedtime Assessment & Plan (02/19/2024 3:15 PM EST): Continue low-dose simvastatin Atrial flutter with rapid ventricular response 0 06/21/2022 Overview (02/19/2024): - Was hospitalized at [facility] where Dr. Snyder met her in consultation in April 2022-presenting with progressive dyspnea on exertion 2 weeks prior to her presentation-found to be in atrial flutter with ventricular response rates in the 140s to 150s with associated low blood pressure that was refractory to diltiazem 10 mg IV x2 and eventually diltiazem drip - Initial plan was to proceed with ROMAN cardioversion however, ROMAN showed evidence of a left atrial appendage thrombus and therefore had to abort - Subsequently started her on every known AV randolph blocking agent-metoprolol, diltiazem, digoxin at maximal doses with no difference in heart rate-therefore after about a week of anticoagulation, we elected to repeat ROMAN looking for resolution of thrombus and if resolved, plan for cardioversion early- thankfully, repeat ROMAN on 04/25/2022 showed resolution of left atrial appendage thrombus and the patient was cardioverted with 100 J - Cardioversion was complicated by a 15-second pause with associated hypotension requiring transient transcutaneous pacing and dopamine drip - She has subsequently been placed on amiodarone on tapering doses to maintain sinus rhythm and has remained in sinus rhythm - She is subsequently had a PFT in September 2022 which reported isolated DLCO decrease-the report officially stated, normal spirometry with isolated reduction in diffusion capacity. The isolated reduction in diffusion capacity could be caused by cardiac disease or even amiodarone induced lung disease. However, it does not look like anyone from our department was contacted with these results-I ordered a CT of the chest without contrast but apparently it was never scheduled-she has subsequently had multiple unremarkable chest x-rays however -Was noted to be back in atrial arrhythmia it looks like persistently from January 2023 to June 2023 and without any external intervention, she spontaneously converted sometime around July 2023 Assessment & Plan (02/19/2024 3:15 PM EST): I have written a secure email to all parties involved to figure out why this was not alerted more urgently but thankfully she spontaneously converted on her own and remains in a paced rhythm. She is clinically euvolemic on exam without symptoms of heart failure, angina, arrhythmias. We will continue to monitor her arrhythmic burden through her device. Continue current Eliquis for CVA prophylaxis, amiodarone at the slightly higher dose of 200 mg daily to maintain sinus rhythm. Patient is due for a repeat chest x-ray prior to her next refill. I have ordered this. Orders: ECG 12 lead Comprehensive metabolic panel; Future Thyroid stimulating hormone with reflex to free t4 and free t3; Future XR Chest 2 Views; Future Encounters Date Type Department Care Team Description 04/23/[address] [facility] [address] [facility] [address] [place] [address] Shelli Mayfield [place] Appointment (F/u booked too soon) 04/09/2024 12:25 PM EST Ancillary Procedure [facility] [address] [place] [address] 02/19/2024 9:20 AM EST Office Visit 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 [address] [facility] [address] [place] [address] America Mistry MD labs and cxr need to be updated from Last 3 Months Immunizations Name Administration Dates Next Due Influenza trivalent, 0.5mL ( Fluzone High-dose) 65yo and older 02/12/2019,03/20/2018 Influenza trivalent, with pr eservative (Fluzone; Afluria) 6mo and older 01/06/2017,01/15/2016 Pneumococcal polysaccharide 23 valent (Pneumovax 23) 2yo and older 02/12/2019 Tdap Tetanus diptheria acell ular pertussis (Boostrix; Adacel) 7yo and older 07/30/2018 Surgical History Surgery Date Site/Laterality Comments ABLATION OF DYSRHYTHMIC FOCUS PAF ROMAN COMPLETE W/ CARDIOVERSION Medical History Medical History Date Comments PAF (paroxysmal atrial fibrillation) (CMS/HCC) SSS (sick sinus syndrome) (CMS/HCC) (HFpEF) heart failure with preserved ejection fr action (CMS/HCC) Hyperlipidemia Hypertension Social History Tobacco Use Types Packs/Day Years Used Date Smoking Tobacco: Never Passive Smoke Exposure: Never Smokeless Tobacco: Never Tobacco Cessation:Counseling Given: Not Answered Alcohol Use Standard Drinks/Week Comments Never 0 (1 standard drink = 0.6 oz pur e alcohol) Sex and Gender Information Value Date Recorded Sex Assigned at Not on file Gender Identity Not on file Sexual Orientation Not on file Job Start Date Occupation Industry Not on file Not on file Not on file Obstetrics History Last Filed Vital Signs Vital Sign Reading Time Taken Comments Blood Pressure 118/80 02/19/2024 9:27 AM EST Pulse 77 02/19/2024 9:27 AM EST Temperature - - Respiratory Rate - - Oxygen Saturation 97% 02/19/2024 9:27 AM EST Inhaled Oxygen Concentration - - Weight 78.9 kg (174 lb) 02/19/2024 9:27 AM EST Height 152.4 cm (5') 02/19/2024 9:27 AM EST Body Mass Index 33.98 02/19/2024 9:27 AM EST Plan of Treatment Upcoming Encounters Date Type Department Care Team (Late st Contact Info) Description 07/02/2024 8:30 AM EDT Ancillary Procedure [facility] [address] [facility] [address] [place] [id number] 08/22/2024 1:10 PM EDT Office Visit [facility] [address] [facility] [address] [place] [id number] Davie Zepeda NP [address] [place] [address] Health Maintenance Due Date Last Done Comments Zoster Vaccines (1 of 2) 1990 RSV Immunization Patients 60+ Years Old (1 - 1-dose 75+ series) 06/13/2015 Pneumococcal Vaccine: 65+ Years (2 of 2 - PCV) 02/13/2020 02/12/2019 Cholesterol Screening (Lipid Panel) 03/02/2022 Depression Screening 03/02/2022 Falls Risk Assessment 03/02/2022 Medicare Annual Wellness Visit 03/02/2022 Osteoporosis Screening (Bone Density Screening) 03/02/2022 Social Influencers of Health Screening 03/02/2022 COVID-19 Vaccine ( season) 2023 04/21/2023, 06/26/2020 Influenza Vaccine (#1) 2023 , 02/12/2019, 03/20/2018, Additional history exists Hypertension/CHF/CAD Annual BMP Blood Test 04/24/2025 04/24/2024 DTaP,Tdap,and Td Vaccines (2 - Td or Tdap) 07/30/2028 07/30/2018 HIB Vaccines Aged Out No longer eligi ble based on patient's age to complete this topic HPV Vaccines Aged Out No longer eligi ble based on patient's age to complete this topic Hepatitis A Vaccines Aged Out No long er eligible based on patient's age to complete this topic Hepatitis B Vaccines Aged Out No long er eligible based on patient's age to complete this topic IPV Vaccines Aged Out No longer eligi ble based on patient's age to complete this topic MMR Vaccines Aged Out No longer eligi ble based on patient's age to complete this topic Meningococcal ACWY Vaccine Aged Out N o longer eligible based on patient's age to complete this topic RSV Immunization Patients Under 20 months Aged Out No longer eligible based on patient's age to complete this topic Varicella Vaccines Aged Out No longer eligible based on patient's age to complete this topic Medical Devices Implanted Type Area Multiple Slide Operator Device Identifier Shelf Expiration Date Model / Serial / Lot Medt-Card Chapo Xt Dr Juan [id number] Implanted: (Quantity not on file) Cardiac Pacemaker [employer] - CARDIAC RHYTH-CRDM CHAPO XT DR JUAN [id number] / [id number] / Procedures Procedure Name Priority Date/Time Associated Diagnosis Comments TRIIODOTHYRONINE FREE Routine 04/24/2024 8:33 AM EST Atrial flutter with rapid ventricular response (CMS/HCC) 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 FREE THYROXINE WITH REFLEX TO FREE TRIIODOTHYRONINE Routine 04/24/2024 8:33 AM EST Atrial flutter with rapid ventricular response (CMS/HCC) [facility]PC current use of amiodarone THYROID STIMULATING HORMONE WITH REFLEX TO FREE T4 AND FREE T3 Routine 04/24/2024 8:33 AM EST Atrial flutter with rapid ventricular response (CMS/HCC) 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 COMPREHENSIVE METABOLIC PANEL Routine 04/24/2024 8:33 AM EST Atrial flutter with rapid ventricular response (CMS/HCC) CARDIAC DEVICE CHECK- REMOTE- MURJ Routine 04/09/2024 12:22 PM EST ECG 12-LEAD Routine 02/19/2024 9:32 AM EST Atrial flutter with rapid ventricular response (CMS/HCC) from Last 3 Months Results * (ABNORMAL) Thyroid stimulating hormone with reflex to free t4 and free t3 (04/24/2024 8:33 AM EST) TSH 4.94(H) 0.40 - 4.00 mcIU/mL LAB CHEMISTRY METHOD 04/24/2024 10:28 AM EST [facility] Blood Venous blood specimen / Unknown Venipuncture / Unknown 04/24/2024 8:33 AM EST 04/24/2024 9:37 AM EST America Mistry MD LAB BLOOD ORDERABLES Performing Organization Address [facility]/ZIP Co de Phone Number [facility] [address] [place] [address], [place] [phone] * Free thyroxine with reflex to free triiodothyronine (04/24/2024 8:33 AM EST) Free T4 1.04 0.70 - 1.80 ng/dL LAB CHEMISTRY METHOD 04/24/2024 10:53 AM EST [facility] Blood Venous blood specimen / Unknown Venipuncture / Unknown 04/24/2024 8:33 AM EST 04/24/2024 9:37 AM EST America Mistry MD LAB BLOOD ORDERABLES Performing Organization Address [facility]/ZIP Co de Phone Number [facility] [address] [place] [address], [place] [phone] * (ABNORMAL) Triiodothyronine free (04/24/2024 8:33 AM EST) T3, Free 190(L) 230 - 420 pcg/dL LAB CHEMISTRY METHOD 04/24/2024 2:45 PM EST [facility] Blood Venous blood specimen / Unknown Venipuncture / Unknown 04/24/2024 8:33 AM EST 04/24/2024 9:37 AM EST America Mistry MD LAB BLOOD ORDERABLES Performing Organization Address City/[facility]/ZIP Co de Phone Number [facility] [address] [place] [address], [place] [phone] * (ABNORMAL) Comprehensive metabolic panel (04/24/2024 8:33 AM EST) Pathologist [facility] Sodium 141 133 - 145 mmol/L LAB CHEMISTRY METHOD 04/24/2024 10:23 AM [facility] Potassium 4.5 3.5 - 5.5 mmol/L LAB CHEMISTRY METHOD 04/24/2024 10:23 AM [facility] Chloride 107 96 - 110 mmol/L LAB CHEMISTRY METHOD 04/24/2024 10:23 AM [facility] CO2 29 21 - 32 mmol/L LAB CHEMISTRY METHOD 04/24/2024 10:23 AM [facility] Anion Gap 5 3 - 11 LAB CHEMISTRY METHOD 04/24/2024 10:23 AM [facility] Glucose 100 70 - 100 mg/dL LAB CHEMISTRY METHOD 04/24/2024 10:23 AM [facility] BUN 35(H) 5 - 25 mg/dL LAB CHEMISTRY METHOD 04/24/2024 10:23 AM [facility] Creatinine 2.05(H) 0.50 - 1.10 mg/dL LAB CHEMISTRY METHOD 04/24/2024 10:23 AM [facility] eGFR 24(L) >=60 mL/min/1. 73m2 LAB CHEMISTRY METHOD 04/24/2024 10:23 AM [facility] Comment:Calculation based on the??Chronic Kidney Disease Epidemiology Collaboration (CKD-EPI) equation refit??without adjustment for race. BUN/Creatinine Ratio 17.1 LAB CHEMISTRY METHOD 04/24/2024 10:23 AM [facility] Calcium 9.0 8.5 - 10.5 mg/dL LAB CHEMISTRY METHOD 04/24/2024 10:23 AM [facility] AST (SGOT) 13 10 - 42 unit/L LAB CHEMISTRY METHOD 04/24/2024 10:23 AM [facility] ALT (SGPT) 12 10 - 60 unit/L LAB CHEMISTRY METHOD 04/24/2024 10:23 AM EST [facility] Alkaline Phosphatase 71 42 - 121 unit/L LAB CHEMISTRY METHOD 04/24/2024 10:23 AM EST [facility] Total Protein 6.8 6.0 - 8.0 g/dL LAB CHEMISTRY METHOD 04/24/2024 10:23 AM EST [facility] Albumin 3.5 3.2 - 5.0 g/dL LAB CHEMISTRY METHOD 04/24/2024 10:23 AM [facility] Total Bilirubin 0.4 0.0 - 1.4 mg/dL LAB CHEMISTRY METHOD 04/24/2024 10:23 AM [facility] Blood Venous blood specimen / Unknown Venipuncture / Unknown 04/24/2024 8:33 AM EST 04/24/2024 9:37 AM EST America Mistry MD LAB BLOOD ORDERABLES [facility] [address] [place] [address], * Cardiac device check - Remote- MURJ (04/09/2024 12:22 PM EST) Date Time Interrogation Session [id number] CV DEVICE CHECK Type Interrogation Session Remote CV DEVICE CHECK Implantable Pulse Generator Multiple Slide Operator MDOziel CV DEVICE CHECK Implantable Pulse Generator Type IPG CV DEVICE CHECK Implantable Pulse Generator Model [place] XT DR JUAN [id number] CV DEVICE CHECK Implantable Pulse Generator Serial Number [id number] CV DEVICE CHECK Implantable Pulse Generator Implant Date [id number] CV DEVICE CHECK Battery Remaining Longevity 141.0 CV DEVICE CHECK Battery Voltage 3.020 CV D EVICE CHECK Battery MOTORSPORTS TECHNICIAN Trigger 2.625 CV DEVICE CHECK Battery Status Middle of Service CV DEVICE CHECK Emmanuel Statistic RA Percent Paced 94.28 CV DEVICE CHECK Emmanuel Statistic RV Percent Paced 0.34 CV DEVICE CHECK Atrial Tachy Statistic AT/AF [place] Percent 0.20 CV DEVICE CHECK Lead Channel [...] Maximum Tracking Rate 130 CV DEVICE CHECK Emmanuel Setting Maximum Sensor Rate 130 CV DEVICE [...] Histograms reviewed * No significant changes noted Carile STREETER CV IMPLANTABLE CARDI AC DEVICE PROCEDURES * ECG 12 lead (02/19/2024 9:32 AM EST) Ventricular Rate ECG 77 BPM GEMUSE Atrial Rate 77 BPM GEMUSE QRS Duration 82 ms GEMUSE Q-T Interval 394 ms GEMUSE QTc 445 ms GEMUSE R [place] 39 degrees GEMUSE T [place] -110 degrees GEMUSE ECG Interpretation Atrial-paced rhythm with prolonged AV conduction Nonspecific ST and T wave abnormality Abnormal ECG When compared with ECG of 04-AUG-2022 16:57, No significant change was found Confirmed by AMERICA MISTRY ([id number]) on 02/19/2024 3:16:21 PM GEMUSE 02/19/2024 9:32 AM EST 02/19/2024 3:16 PM EST America Mistry MD ECG ORDERABLES GEMUSE from Last 3 Months Advance Directives Documents on File Type Date Recorded 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 Health Care Decision (hx) 01/31/2021 AD WEST DIRECTIVE Health Care Decision (hx) 01/31/2021 AD WEST DIRECTIVE Health Care Decision (hx) 01/31/2021 AD WEST DIRECTIVE Health Care Decision (hx) 01/31/2021 AD WEST DIRECTIVE Health Care Decision (hx) 01/31/2021 AD WEST DIRECTIVE Health Care Decision (hx) 01/31/2021 AD WEST DIRECTIVE Care Teams Pipe Line Maintenance Supervisor Relationship Specialty Start Date End Date Penny Andres MD [address] [place] [address] , [address] [facility] D/B/A: [facility] Internal [facility] TRELL Grubbs PCP - General 06/27/22
== END 2024-04-29 08:41 | disposition home or self-care (01) ==
LOC: HO.MAMMO 08:40
PROVIDERS: PCP Internal Medicine; Visit Provider Internal Medicine
DX: Z12.31 Encounter for screening mammogram for malignant neoplasm of breast (principal)
CPT/HCPCS: 77063; 77067

== ENCOUNTER → 2024-04-29 09:30 | Outpatient (BNV) | payer OTHER, SELFPAY | PROVIDERS: PCP Internal Medicine; Visit Provider Internal Medicine | DX: Z12.31 Encounter for screening mammogram for malignant neoplasm of breast (principal) | CPT/HCPCS: 77063; 77067 ==

== ENCOUNTER 2024-05-07 09:22 | Outpatient (AMB) | payer OTHER, SELFPAY ==
[2024-05-07 09:27] VITALS: BP 130/84; PULSE 79; O2SAT 99; BMI 36.4
--- NOTE | 2024-05-07 09:27 | HO.NEPHOV ---
Vital Signs 05/07/24 09:27 Height 4 ft 10 in Weight 174 lb BMI 36.4 BP 130/84 Blood Pressure Location Rt brachial Position Sitting Pulse 79 Pulse Source Pulse Oximeter Pulse Oximetry (%) 99 Oxygen Delivery Method Room Air Intake Visit Reasons: CKD/ LVM Lead Ruby On Rails Developer Required: Yes Lead Ruby On Rails Developer Name: Nichelle [id number] Accompanied by: Daughter Allergies aspirin [ASA] Allergy (Severe, Verified 05/07/24 09:29) FACIAL SWELLING naproxen [NAPROXEN] Allergy (Intermediate, Verified 05/07/24 09:29) NAUSEA & VOMITING hydrocodone [From Vicodin] Allergy (Mild, Verified 05/07/24 09:29) itching NSAIDS (Non-Steroidal Anti-Inflamma [Nsaids] Allergy (Mild, Verified 05/07/24 09:29) itching penicillamine Allergy (Mild, Verified 05/07/24 09:29) itching Medication List - Last Reconciled 05/07/24 by Garret Vizcaino MD [adult pullups As directed] allopurinol 100 mg PO DAILY 90 days alum-mag hydroxide-simeth 200-200-20 mg/5 mL mL PO amiodarone 200 mg PO .once a day 90 days apixaban (Eliquis) 5 mg PO Q12H blood pressure monitor As directed blood pressure test kit-large ([employer]int [employer]uch Blood Pressure Monitor kit) As directed blood sugar diagnostic As directed blood sugar diagnostic (FreeStyle Lite Strips) Use 1 strip once a day blood sugar diagnostic (FreeStyle Lite Strips) test daily blood-glucose meter (FreeStyle Lite Meter kit) test daily blood-glucose meter (FreeStyle Lite Meter kit) As directed calcium carbonate (Oyster Shell Calcium) 500 mg PO DAILY 90 days cholecalciferol (vitamin D3) 25 mcg PO DAILY 90 days commode As directed dapagliflozin propanediol (Farxiga) 10 mg PO DAILY 90 days [disposable bedpads As directed] disposable gloves As directed disposable gloves As directed [disposable underwear As directed] ferrous sulfate 325 mg PO DAILY folic acid 1 mg PO DAILY 90 days gabapentin 400 mg PO BID 90 days [incontinence wipes As directed] lancets (FreeStyle Lancets) test daily lancets (FreeStyle Lancets) USe 1 lancet once a day loratadine 10 mg PO DAILY mecobalamin (vitamin B12) 1,000 mcg sublingual BEDTIME 90 days metformin 2,000 mg (2 x 1,000 mg) PO DAILY 90 days methylcellulose (laxative) (Citrucel) 500 mg PO DAILY montelukast 10 mg PO DAILY omeprazole 20 mg PO BEDTIME ondansetron HCl 4 mg PO DAILY PRN 90 days [personal cleansing wipes As directed] sennosides (Natural Senna Laxative) 8.6 mg PO BEDTIME simvastatin 10 mg PO BEDTIME [toilet frame As directed] tramadol 50 mg PO Q6H PRN Transfer Bench As directed triamcinolone acetonide 0.1% 1 appl topical DAILY 14 days underpads (Bed Underpads) As directed valacyclovir 1,000 mg PO Q8H 7 days walker (Ultra-Light Rollator misc) As directed HPI Comments Details: Samantha is a pleasant 83-year-old woman with a history of longstanding hypertension and diabetes mellitus with congestive heart failure, referred for chronic kidney disease. h/o DM x 20 years HFpEF A.flutter HTN CKD 4 recent serum creatinine was around 2.5 mg/dL and EGFR was around 20 mL/minute. About few years ago serum creatinine was 1.5 mg/dL. She has been taking Ibuprofen for about a month Used to take 2 day. Last dose was about 2 weeks ago. No weight loss No shortness of breath No chest pain No nausea or vomiting No diarrhea No polyuria, oliguria No edema No headache No palpitations or unexplained sweating 08/14/23 Here for follow up;;No specific complaints;Potassium was slightly elevated and creatinine bumped up from baseline. Lisinopril was stopped about a week ago;Lead Ruby On Rails Developer service was used 09/11/23 Ran out of [facility];No new issues;Lab results pending 05/07/24 Samantha doing well. No new complaints today. She seems compliant with her medications. Lead Ruby On Rails Developer service was used. [facility] Medical History (Updated 07/25/23 @ 09:17 by Penny Andres MD) ROHINI (acute kidney injury) Lumbar pain Right knee pain Left knee pain Right hip pain Left hip pain Right shoulder pain Left hand pain Gout Morbid obesity Hyperlipidemia Lumbar radiculopathy B12 deficiency Normal colonoscopy Adenomatous colon polyp Asthma Acid reflux HTN (hypertension) Surgical History History of surgery History of colonoscopy History of total abdominal hysterectomy and bilateral salpingo-oophorectomy Family History Father No problems noted. Mother No problems noted. Son In good health Son In good health Daughter In good health Daughter In good health Daughter In good health Daughter In good health Social History Household Members Other:: lives alone- has a forensic anthropologist Caregiver staying overnight: Yes Housing: Apartment Alcohol intake: never Patient Tobacco Use Status: Former Tobacco user Tobacco use type: Cigarette e-Cigarette/Vaping Use: Never Used Second Hand Smoke Exposure: No service: No Current occupational status: disabled Cognitive needs: Yes Hearing needs: No Vision needs: Yes Physical Exam Vital Signs: Last Vital Signs Pulse 79 05/07/24 09:27 BP 130/84 05/07/24 09:27 Pulse Ox 99 05/07/24 09:27 Oxygen Delivery Method Room Air 05/07/24 09:27 BMI result Body Mass Index 36.4 Comfortable Neck supple no JVD. Lungs entry equal no rales. Heart S1-S2 heard no gallop or rub. Abdomen soft nontender. Neuro alert awake oriented. No asterixis. Extremities no edema. Results Reviewed Nephrology Results: Hgb 9.0 g/dl (12.0-16.0) L 02/13/24 WBC 5.8 X10*3/uL (4.8-10.8) 02/13/24 Plt Count 208 X10*3/uL (160-400) 02/13/24 Sodium 139 mmol/L (135-145) 02/13/24 Potassium 5.3 mmol/L (3.3-5.1) H 02/13/24 Chloride 109 mmol/L (96-108) H 02/13/24 Carbon Dioxide 20 mmol/L (22-29) L 02/13/24 BUN 26 mg/dL (9-16) H 02/13/24 Creatinine 1.93 mg/dL (0.5-1.4) H 02/13/24 Calcium 9.4 mg/dL (8.4-10.2) 02/13/24 PTH Intact 80.7 pg/mL (8.7-77.1) H 02/13/24 Renal US 08/09/23 Assessment & Plan Assessment & Plan (1) CKD (chronic kidney disease) stage 4, GFR 15-29 ml/min: Code(s): N18.4 - Chronic kidney disease, stage 4 (severe) Category: Medical Plan . Samantha is a pleasant 83-year-old woman with a history of chronic kidney disease in the setting of longstanding diabetes mellitus hypertension congestive heart failure. Underlying chronic kidney disease is most likely due to hypertensive diabetic kidney disease No obstructive uropathy based on renal ultrasound and evidence of glomerulonephritis The EGFR has been between 20 and 25 mL/minute for the last 3 years. Recent creatinine was 2.01. This could be her baseline. Recurrent hyperkalemia. She was on Lokelma once a day. Anemia due to chronic kidney disease. Recommendations Continue to Avoid NSAIDs 2 g sodium diet Optimize fluid intake Maintain A1c less than 7%. Maintain blood pressure less than 130/80 and avoid hypotension. Continue with the SGLT2 inhibitors for cardiorenal protection Agree with holding ALIYAH inhibitors due to hyperkalemia and worsening renal function . Stay on low-potassium diet. Repeat K levels today and assess need for Lokelma We will continue to monitor hemoglobin and reassess for possible need for erythropoietin replacement therapy. Given the degree of renal insufficiency , avoid metformin due to the risk of lactic acidosis. Orders: Orders Basic Metabolic Panel Today N18.4 - Chronic kidney disease, stage 4 (severe) Coding Level of Care Code Est Pt Level 4 (78214) Diagnoses CKD (chronic kidney disease) stage 4, GFR 15-29 ml/min N18.4
--- OUTSIDE RECORDS SUMMARY | 2024-05-07 09:53 | XMS_ITS | Clinical Summary ---
Author Organization [address] [facility] Address [address] [place] [address] Phone Care Team Providers Care Flight Software Test Engineer Name Role Phone Penny Andres MD Primary Care Provider [phone] Allergies Active Allergy Reactions Criticality Noted Date [...] 06/21/2022 Overview (02/19/2024): - Was hospitalized at where Dr. Snyder met her in consultation in April 2022-presenting with progressive dyspnea on exertion 2 weeks prior to her presentation-found to be in atrial flutter with ventricular response rates in the 140s to 150s with associated low blood pressure that was refractory to diltiazem 10 mg IV x2 and eventually diltiazem drip - Initial plan was to proceed with ROMAN cardioversion however, ROMNA showed evidence of a left atrial appendage [...] Encounters Date Type Department Care Team Description 05/02/2024 Telephone [facility] [address] [place] [address] Lida Maldonado [place] Results (Lab results and cxr needed) 04/23/2024 Telephone [facility] [address] [place] [address] Shelli Mayfield [place] Appointment (F/u booked too soon) 04/09/2024 12:25 PM EST Ancillary Procedure [facility] [address] [place] [address] 02/19/2024 9:20 AM EST Office Visit [facility] [address] [place] [address] America Mistry MD Atrial flutter with rapid ventricular response (CMS/HCC) (Primary Dx); wheel cutter current use of amiodarone; Chronic heart failure with preserved ejection fraction (CMS/HCC); SSS (sick sinus syndrome) (CMS/HCC); Pure hypercholesterolemia 02/19/2024 Telephone [facility] [address] [facility] [address] [place] [address] America Mistry MD labs and [...] Description 07/02/2024 8:30 AM EDT Ancillary Procedure [facility] Cardiology [facility] [address] [facility] [address] [place] [address] 08/22/2024 1:10 PM EDT Office Visit [facility] [address] [facility] [address] [place] [address] Davie Zepeda NP [address] [place] [address] Health Maintenance Due Date Last Done Comments [...] this topic Medical Devices Implanted Type Area Music Librarian Device Identifier Shelf Expiration Date Model / Serial / Lot Medt-Card Chapo Xt Dr Juan [id number] Implanted: (Quantity not on file) Cardiac Pacemaker [employer] - CARDIAC RHYTH-CRDM CHAPO XT DR JUAN [id number] / [id number] / Procedures Procedure Name Priority Date/Time Associated Diagnosis Comments TRIIODOTHYRONINE FREE Routine 04/24/2024 8:33 AM EST Atrial flutter with rapid ventricular response (CMS/HCC) snf current use of amiodarone FREE THYROXINE WITH REFLEX TO FREE TRIIODOTHYRONINE Routine 04/24/2024 8:33 AM EST Atrial flutter with rapid ventricular response (CMS/HCC) snf current use of amiodarone THYROID STIMULATING HORMONE WITH REFLEX TO FREE T4 AND FREE T3 Routine 04/24/2024 8:33 AM EST Atrial flutter with rapid ventricular response (CMS/HCC) wheel cutter current use of amiodarone COMPREHENSIVE METABOLIC PANEL [...] LAB CHEMISTRY METHOD 04/24/2024 10:[address] [facility] Blood Venous blood specimen / Unknown Venipuncture / Unknown 04/24/2024 8:33 AM EST 04/24/2024 9:37 AM EST America Mistry MD LAB BLOOD ORDERABLES Performing Organization Address [facility]/ZIP Co de Phone Number [facility] [address] [place] [address], * Free thyroxine with reflex to free triiodothyronine (04/24/2024 8:33 AM EST) Free T4 1.04 0.70 - 1.80 ng/dL LAB CHEMISTRY METHOD 04/24/2024 10:[address] [facility] Blood Venous blood specimen / Unknown Venipuncture / Unknown 04/24/2024 8:33 AM EST 04/24/2024 9:37 AM EST America Mistry MD LAB BLOOD ORDERABLES Performing Organization Address [facility]/ZIP Co de Phone Number [facility] [address] [place] [address], [place] [phone] * (ABNORMAL) Triiodothyronine free (04/24/2024 8:33 AM EST) T3, Free 190(L) 230 - 420 pcg/dL LAB CHEMISTRY METHOD 04/24/2024 2:[address] [facility] Blood Venous blood specimen / Unknown Venipuncture / Unknown 04/24/2024 8:33 AM EST 04/24/2024 9:37 AM EST America Mistry MD LAB BLOOD ORDERABLES [facility] [address] [place] [address], * (ABNORMAL) Comprehensive metabolic panel (04/24/2024 8:33 AM EST) Sodium 141 133 - 145 mmol/L LAB CHEMISTRY METHOD 04/24/2024 10:23 AM [facility] Potassium 4.5 3.5 - 5.5 mmol/L LAB CHEMISTRY METHOD 04/24/2024 10:23 AM [facility] Chloride 107 96 - 110 mmol/L LAB CHEMISTRY METHOD 04/24/2024 10:23 AM [facility] CO2 29 21 - 32 mmol/L LAB CHEMISTRY METHOD 04/24/2024 10:23 AM [facility] Anion Gap 5 3 - 11 LAB CHEMISTRY METHOD 04/24/2024 10:23 AM [facility] Glucose 100 70 - 100 mg/dL LAB CHEMISTRY METHOD 04/24/2024 10:23 AM [facility] BUN 35(H) 5 - 25 mg/dL LAB CHEMISTRY METHOD 04/24/2024 10:23 AM [facility] Creatinine 2.05(H) 0.50 - 1.10 mg/dL LAB CHEMISTRY METHOD 04/24/2024 10:23 AM [facility] eGFR 24(L) >=60 mL/min/1. 73m2 LAB CHEMISTRY METHOD 04/24/2024 10:23 AM [facility] Comment:Calculation based on the??Chronic Kidney Disease Epidemiology Collaboration (CKD-EPI) equation refit??without adjustment for race. BUN/Creatinine Ratio 17.1 LAB CHEMISTRY METHOD 04/24/2024 10:23 AM [facility] Calcium 9.0 8.5 - 10.5 mg/dL LAB CHEMISTRY METHOD 04/24/2024 10:23 AM [facility] AST (SGOT) 13 10 - 42 unit/L LAB CHEMISTRY METHOD 04/24/2024 10:23 AM [facility] ALT (SGPT) 12 10 - 60 unit/L LAB CHEMISTRY METHOD 04/24/2024 10:23 AM [facility] Alkaline Phosphatase 71 42 - 121 unit/L LAB CHEMISTRY METHOD 04/24/2024 10:23 AM [facility] Total Protein 6.8 6.0 - 8.0 g/dL LAB CHEMISTRY METHOD 04/24/2024 10:23 AM [facility] Albumin 3.5 3.2 - 5.0 g/dL LAB CHEMISTRY METHOD 04/24/2024 10:23 AM [facility] Total Bilirubin 0.4 0.0 - 1.4 mg/dL LAB CHEMISTRY METHOD 04/24/2024 10:23 AM [facility] Blood Venous blood specimen / Unknown Venipuncture / Unknown 04/24/2024 8:33 AM EST 04/24/2024 9:37 AM EST America Mistry MD LAB BLOOD ORDERABLES [facility] [address] [place] [address], * Cardiac device check - Remote- MURJ (04/09/2024 12:22 PM EST) Date Time Interrogation Session [id number] CV DEVICE CHECK Type Interrogation Session Remote CV DEVICE CHECK Implantable Pulse Generator Music Librarian MDT CV DEVICE CHECK Implantable Pulse Generator Type IPG CV DEVICE CHECK Implantable Pulse Generator Model Chapo XT MRI [id number] CV DEVICE CHECK Implantable Pulse Generator Serial Number [id number] CV DEVICE CHECK Implantable Pulse Generator Implant Date 20220425 CV DEVICE CHECK Battery Remaining Longevity 141.0 CV DEVICE CHECK Battery Voltage 3.020 CV D EVICE CHECK Battery EMERY WHEEL WORKER Trigger 2.625 CV DEVICE CHECK Battery Status Middle of Service CV DEVICE CHECK Emmanuel Statistic RA Percent Paced 94.28 CV DEVICE CHECK Emmanuel Statistic RV Percent Paced 0.34 CV DEVICE CHECK Atrial Tachy Statistic AT/AF [place] Percent 0.20 CV DEVICE CHECK Lead Channel [...] ms GEMUSE QTc 445 ms GEMUSE R [place] 39 degrees GEMUSE T [place] -110 degrees GEMUSE ECG Interpretation Atrial-paced rhythm [...] Documents on File Type Date Recorded Patient Manager Search Expl anation Health Care Decision (hx) 01/31/2021 AD WEST DIRECTIVE Health Care Decision (hx) 01/31/2021 AD WEST DIRECTIVE Health Care Decision (hx) 01/31/2021 AD WEST DIRECTIVE Health Care Decision (hx) 01/31/2021 AD WEST DIRECTIVE Health Care Decision (hx) 01/31/2021 AD WEST DIRECTIVE Health Care Decision (hx) 01/31/2021 AD WEST DIRECTIVE Care Teams Flight Software Test Engineer Relationship Specialty Start Date End Date Penny Andres MD [address] [facility] , [address] [facility] D/B/A: [facility] [place], [place] PCP - General 06/27/22
--- OUTSIDE RECORDS SUMMARY | 2024-05-07 09:53 | XMS_ITS | Encounter Summary ---
Author Organization [facility] Address [address] [place] [address] Care Team Providers Care Customer Service Cashier Name Role Phone Penny Andres MD Primary Care Provider [phone] Reason for Visit * Reason Onset Date Comments Results 05/02/2024 Lab results and cxr needed Encounter Details Date Type Department Care Team (Late st Contact Info) Description 05/02/2024 Telephone [facility] [address] [facility] [address] [place] [address] Lida Maldonado MA Results (Lab results and cxr needed) Social History Tobacco Use Types Packs/Day Years [...] Progress Notes * Shelli Mayfield MA - 05/03/2024 3:06 PM EST Jaye and Dr. Brooks just an FYI the patient will have her CXR done next week at [facility] called back from [facility] and she will be sure that the pcp reviews labs that were faxed. I spoke to the Caregiver Too and she will be sure that the patient goes for a CXR next week * Shelli Mayfield MA - 05/02/2024 4:10 PM EST I called [facility] and spoke to Dany and let him know that I faxed the labs and copy ofmessage to [phone]. He will send a message to the provider to let her know. I left a voicemail for the caregiver Dimple to call me back to follow up about the cxr * FERDINAND Harris - 05/02/2024 3:58 PM EST I reviewed with Dr. Brooks. She wants to be sure PCP receives thyroid labs to monitor. Not indicative of thyroiditis related toamio but she is slightly hypothyroid. Make sure she goes for surveillance CXR. Thanks I reviewed recent device download. No significant afib burden * Lida Maldonado MA - 05/02/2024 9:24 AM EST Few things: Latanya- I believe her thyroid function is relatively reasonable although I can't find prior thyroid labs even in [facility]? LFTs stable on amiodarone. Dr. Brooks ordered a surveillance CXR to be done whenshe saw patient last in Feb 2024. I do not see a result- can you check with the patient? Has CKD and per renal note from Jul 2023 renal function appears at baseline. Device- is there an updated 90 day remote available to assess for any recurrent bettye I left message for patient to return my call to review cxr. documented in this encounter Plan of Treatment Upcoming Encounters Date Type Department Care Team (Late st Contact Info) Description 07/02/2024 8:30 AM EDT Ancillary Procedure [facility] Cardiology [facility] [address] [place] [address] 08/22/2024 1:10 PM EDT Office Visit [facility] [address] [place] [address] Davie Zepeda, SANDRA [address] [place] [address] documented as of this encounter Visit Diagnoses Not on filedocumented in this encounter Care Teams Customer Service Cashier Relationship Specialty Start Date End Date Penny Andres MD [address] [place] [address] , [address] Physician Associ D/B/A: [facility] [place], [place] PCP - General 06/27/22 documented as of this encounter
--- OUTSIDE RECORDS SUMMARY | 2024-05-07 09:53 | XMS_ITS | Encounter Summary ---
Author Organization [facility] Address [address] [place] [address] Care Team Providers Care Fractionation Supervisor Name Role Phone Penny Andres MD Primary Care Provider [phone] Reason for Visit * Reason Onset Date Comments Appointment 04/23/2024 F/u booked too s oon Encounter Details Date Type Department Care Team (Late st Contact Info) Description 04/23/[address] [facility] - [facility] [address] [facility] [address] [place] [address] Shelli Mayfield [place] Appointment (F/u booked too [...] 07/02/2024 8:30 AM EDT Ancillary Procedure [facility] Cardiology [facility] [address] [facility] [address] [place] [address] 08/22/2024 1:10 PM EDT Office Visit [facility] [address] [facility] [address] [place] [address] Davie Zepeda, SANDRA [address] [place] [address] documented as of this encounter Visit Diagnoses Not on filedocumented in this encounter Care Teams Fractionation Supervisor Relationship Specialty Start Date End Date Penny Andres MD [address] [facility] [address] [facility] Physician Associ D/B/A: [facility] TRELL Grubbs PCP - General 06/27/22 documented as of this encounter
--- OUTSIDE RECORDS SUMMARY | 2024-05-07 09:53 | XMS_ITS | Encounter Summary ---
Author Organization [facility] Address [address] [place] [address] Care Team Providers Care Envelope Folding Machine Operator Name Role Phone Penny Andres MD Primary Care Provider [phone] Encounter Details Date Type Department Care Team (Late st Contact Info) Description 04/09/2024 12:25 PM EST Ancillary Procedure [facility] [address] [facility] [address] [place] [address] Social History Tobacco Use Types Packs/Day Years [...] Description 07/02/2024 8:30 AM EDT Ancillary Procedure [facility] [address] [facility] [address] [place] [address] 08/22/2024 1:10 PM EDT Office Visit [facility] [address] [facility] [address] [place] [address] Davie Zepeda NP [address] [place] [address] documented as of this encounter Procedures Procedure Name Priority Date/Time Associated Diagnosis Comments CARDIAC DEVICE CHECK- REMOTE- MURJ Routine 04/09/2024 12:22 PM EST documented in this encounter Results * Cardiac device check - Remote- MURJ (04/09/2024 12:22 PM EST) Date Time Interrogation Session [id number] CV DEVICE CHECK Type Interrogation Session Remote CV DEVICE CHECK Implantable Pulse Generator Track Laminating Machine Tender MDT CV DEVICE CHECK Implantable Pulse Generator Type IPG CV DEVICE CHECK Implantable Pulse Generator Model Isamar XT DR MRI [id number] CV DEVICE CHECK Implantable Pulse Generator Serial Number [id number] CV DEVICE CHECK Implantable Pulse Generator Implant Date 20220425 CV DEVICE CHECK Battery Remaining Longevity 141.0 CV DEVICE CHECK Battery Voltage 3.020 CV D EVICE CHECK Battery OCCASIONAL BABYSITTER Trigger 2.625 CV DEVICE CHECK Battery Status Middle of Service CV DEVICE CHECK Emmanuel Statistic RA Percent Paced 94.28 CV DEVICE CHECK Emmanuel Statistic RV Percent Paced 0.34 CV DEVICE CHECK Atrial Tachy Statistic AT/AF [place] Percent 0.20 CV DEVICE CHECK Lead Channel [...] on filedocumented in this encounter Care Teams Envelope Folding Machine Operator Relationship Specialty Start Date End Date Penny Andres MD [address] [place] [address] , [address] [facility] Physician Associ D/B/A: [facility] TRELL Grubbs PCP - General 06/27/22 documented as of this encounter
== END 2024-05-07 09:44 | disposition home or self-care (01) ==
PROVIDERS: PCP Internal Medicine; Visit Provider Internal Medicine Hypertension Specialist
DX: N18.4 Chronic kidney disease, stage 4 (severe) (principal)
CPT/HCPCS: 99214

== ENCOUNTER 2024-05-07 09:56 | Outpatient (REF) | payer OTHER, SELFPAY ==
--- OUTSIDE RECORDS SUMMARY | 2024-05-07 10:36 | XMS_ITS | Encounter Summary ---
Author Organization [facility] Address [address] [place] [address] Care Team Providers Care Pig Lead Melter Helper Name Role Phone Penny Andres MD Primary Care Provider [phone] Reason for Visit * Reason Onset Date Comments Appointment 04/23/2024 F/u booked too s oon Encounter Details Date Type Department Care Team (Late st Contact Info) Description 04/23/2024 Telephone [facility] - [facility] [address] [facility] [address] [place] [phone] Shelli Mayfield [place] Appointment (F/u booked too [...] Description 07/02/2024 8:30 AM EDT Ancillary Procedure [facility] Cardiology [facility] [address] [facility] [address] [place] [address] 08/22/2024 1:10 PM EDT Office Visit [facility] - [facility] [address] [facility] [address] [place] [address] Davie Zepeda, SANDRA [address] [place] [address] documented as of this encounter Visit Diagnoses Not on filedocumented in this encounter Care Teams Pig Lead Melter Helper Relationship Specialty Start Date End Date Penny Andres MD [address] [facility] , [address] [facility] D/B/A: [facility] TRELL Grubbs PCP - General 06/27/22 documented as of this encounter
--- OUTSIDE RECORDS SUMMARY | 2024-05-07 10:36 | XMS_ITS | Clinical Summary ---
Author Organization [address] [facility] Address [address] [place] [address] Phone Care Team Providers Care Matrix Supervisor Name Role Phone Penny Andres MD Primary Care Provider [phone] Allergies Active Allergy Reactions Criticality Noted Date [...] 06/21/2022 Overview (02/19/2024): - Was hospitalized at [facility] where Dr. Snyder met her in [...] was to proceed with ROMAN cardioversion however, ORMAN showed evidence of a left atrial appendage [...] Type Department Care Team Description 05/02/2024 Telephone [facility] [address] [place] [address] Lida Maldonado [place] Results (Lab results and cxr needed) 04/23/2024 Telephone [facility] [address] [place] [address] Shelli Mayfield [place] Appointment (F/u booked too soon) 04/09/2024 12:25 PM EST Ancillary Procedure [facility] [address] [place] [address] 02/19/2024 9:20 AM EST Office Visit [facility] [address] [place] [address] America Mistry MD Atrial flutter with rapid ventricular response (CMS/HCC) (Primary Dx); 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 [address] [facility] [address] [place] [address] America Mistry MD labs and [...] Description 07/02/2024 8:30 AM EDT Ancillary Procedure [facility] [address] [facility] [address] [place] [phone] 08/22/2024 1:10 PM EDT Office Visit [facility] [address] 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 DR JUAN [id number] / [id number] / Procedures Procedure Name Priority Date/Time Associated Diagnosis Comments TRIIODOTHYRONINE FREE Routine 04/24/2024 8:33 AM EST Atrial flutter with rapid ventricular response (CMS/HCC) USP current use of amiodarone FREE THYROXINE WITH REFLEX TO FREE TRIIODOTHYRONINE Routine 04/24/2024 8:33 AM EST Atrial flutter with rapid ventricular response (CMS/HCC) USP current use of amiodarone THYROID STIMULATING HORMONE WITH REFLEX TO FREE T4 AND FREE T3 Routine 04/24/2024 8:33 AM EST Atrial flutter with rapid ventricular response (CMS/HCC) intermediate accountant current use of amiodarone COMPREHENSIVE METABOLIC PANEL [...] LAB CHEMISTRY METHOD 04/24/2024 10:28 AM EST [facility] Blood Venous blood specimen / Unknown Venipuncture / Unknown 04/24/2024 8:33 AM EST 04/24/2024 9:37 AM EST America Mistry MD LAB BLOOD ORDERABLES Performing Organization Address [facility]/ZIP Co de Phone Number [facility] [address] [place] [address], * Free thyroxine with reflex to free triiodothyronine (04/24/2024 8:33 AM EST) Free T4 1.04 0.70 - 1.80 ng/dL LAB CHEMISTRY METHOD 04/24/2024 10:53 AM EST [facility] Blood Venous blood specimen / Unknown Venipuncture / Unknown 04/24/2024 8:33 AM EST 04/24/2024 9:37 AM EST America Mistry MD LAB BLOOD ORDERABLES Performing Organization Address [facility]/ZIP Co de Phone Number [facility] [address] [place] [address], [place] [phone] * (ABNORMAL) Triiodothyronine free (04/24/2024 8:33 AM EST) T3, Free 190(L) 230 - 420 pcg/dL LAB CHEMISTRY METHOD 04/24/2024 2:45 PM EST [facility] Blood Venous blood specimen / Unknown Venipuncture / Unknown 04/24/2024 8:33 AM EST 04/24/2024 9:37 AM EST America Mistry MD LAB BLOOD ORDERABLES [facility] [address] [place] [address], * (ABNORMAL) Comprehensive metabolic panel (04/24/2024 8:33 [...] 10:23 AM [facility] Alkaline Phosphatase 71 42 - 121 unit/L LAB CHEMISTRY METHOD 04/24/2024 10:23 AM [facility] Total Protein 6.8 6.0 - 8.0 g/dL LAB CHEMISTRY METHOD 04/24/2024 10:23 AM [facility] Albumin 3.5 3.2 - 5.0 g/dL LAB CHEMISTRY METHOD 04/24/2024 10:23 AM [facility] Total Bilirubin 0.4 0.0 - 1.4 mg/dL LAB CHEMISTRY METHOD 04/24/2024 10:23 AM [facility] Blood Venous blood specimen / Unknown Venipuncture / Unknown 04/24/2024 8:33 AM EST 04/24/2024 9:37 AM EST America Mistry MD LAB BLOOD ORDERABLES [facility] [address] [place] [address], * Cardiac device check - Remote- MURJ (04/09/2024 12:22 PM EST) Date Time Interrogation Session [id number] CV DEVICE CHECK Type Interrogation Session Remote CV DEVICE CHECK Implantable Pulse Generator Metallurgical Tester MDT CV DEVICE CHECK Implantable Pulse Generator Type IPG CV DEVICE CHECK Implantable Pulse Generator Model Chapo XT MRI [id number] CV DEVICE CHECK Implantable Pulse Generator Serial Number [id number] CV DEVICE CHECK Implantable Pulse Generator Implant Date 20220425 CV DEVICE CHECK Battery Remaining Longevity 141.0 CV DEVICE CHECK Battery Voltage 3.020 CV D EVICE CHECK Battery PETROLEUM TRANSPORT DRIVER Trigger 2.625 CV DEVICE CHECK Battery Status Middle of Service CV DEVICE CHECK Emmanuel Statistic RA Percent Paced 94.28 CV DEVICE CHECK Emmanuel Statistic RV Percent Paced 0.34 CV DEVICE CHECK Atrial Tachy Statistic AT/AF [place] Percent 0.20 CV DEVICE CHECK Lead Channel [...] ms GEMUSE QTc 445 ms GEMUSE R [place] 39 degrees GEMUSE T [place] -110 degrees GEMUSE ECG Interpretation Atrial-paced rhythm [...] Documents on File Type Date Recorded 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
--- OUTSIDE RECORDS SUMMARY | 2024-05-07 10:36 | XMS_ITS | Encounter Summary ---
Author Organization [facility] Address [address] [place] [address] Care Team Providers Care Assistant Produce Manager Name Role Phone Penny Andres MD Primary Care Provider [phone] Reason for Visit * Reason Onset Date Comments Results 05/02/2024 Lab results and cxr needed Encounter Details Date Type Department Care Team (Late st Contact Info) Description 05/02/[address] [facility] - [facility] [address] [facility] [address] [place] [address] Lida Maldonado MA Results (Lab [...] have her CXR done next week at [facility] called back from [facility] and she will be sure that the pcp reviews labs that were faxed. I spoke to the Caregiver Too and she will be sure that the patient goes for a CXR next week * Shelli Mayfield MA - 05/02/2024 4:10 PM EST I called [facility] and spoke to Dany and let him know that I faxed the labs and copy ofmessage to [phone]. He will send a message to the [...] 07/02/2024 8:30 AM EDT Ancillary Procedure [facility] [address] [place] [address] 08/22/2024 1:10 PM EDT Office Visit [facility] - [address] [place] [address] Davie Zepeda, SANDRA [address] [place] [address] documented as of this encounter Visit Diagnoses Not on filedocumented in this encounter Care Teams Assistant Produce Manager Relationship Specialty Start Date End Date Penny Andres MD [address] [place] [address] , [address] Physician Associ D/B/A: [facility] [place], [place] PCP - General 06/27/22 documented as of this encounter
--- OUTSIDE RECORDS SUMMARY | 2024-05-07 10:36 | XMS_ITS | Encounter Summary ---
Author Organization [facility] Address [address] [place] [address] Care Team Providers Care Sack Repairer Name Role Phone Penny Andres MD Primary Care Provider [phone] Encounter Details Date Type Department Care Team (Late st Contact Info) Description 04/09/2024 12:25 PM EST Ancillary Procedure [facility] [address] [facility] [address] [place] [address] Social History Tobacco Use Types Packs/Day Years [...] Description 07/02/2024 8:30 AM EDT Ancillary Procedure [facility] [address] [facility] [address] [place] [address] 08/22/2024 1:10 PM EDT Office Visit [facility] [address] [facility] [address] [place] [phone] Davie Zepeda NP [address] [place] [address] documented as of this encounter Procedures Procedure Name Priority Date/Time Associated Diagnosis Comments CARDIAC DEVICE CHECK- REMOTE- MURJ Routine 04/09/2024 12:22 PM EST documented in this encounter Results * Cardiac device check - Remote- MURJ (04/09/2024 12:22 PM EST) Date Time Interrogation Session [id number] CV DEVICE CHECK Type Interrogation Session Remote CV DEVICE CHECK Implantable Pulse Generator Key Account Coordinator MDT CV DEVICE CHECK Implantable Pulse Generator Type IPG CV DEVICE CHECK Implantable Pulse Generator Model [place]amar XT DR MRI [id number] CV DEVICE CHECK Implantable Pulse Generator Serial Number [id number] CV DEVICE CHECK Implantable Pulse Generator Implant Date 20220425 CV DEVICE CHECK Battery Remaining Longevity 141.0 CV DEVICE CHECK Battery Voltage 3.020 CV D EVICE CHECK Battery TOOL GRINDER Trigger 2.625 CV DEVICE CHECK Battery Status Middle of Service CV DEVICE CHECK Emmanuel Statistic RA Percent Paced 94.28 CV DEVICE CHECK Emmanuel Statistic RV Percent Paced 0.34 CV DEVICE CHECK Atrial Tachy Statistic AT/AF [place] Percent 0.20 CV DEVICE CHECK Lead Channel [...] on filedocumented in this encounter Care Teams Sack Repairer Relationship Specialty Start Date End Date Penny Andres MD [address] [place] [address] , [address] [facility] Physician Associ D/B/A: [facility] TRELL Grubbs PCP - General 06/27/22 documented as of this encounter
[2024-05-07 10:56] LABS: Hemoglobin 9.5 g/dl (12.0-16.0); Mean Corpuscular HGB Conc 31.7 g/dl (31.0-35.0); Mean Corpuscular Hemoglobin 32.3 pg (27.0-33.0); Mean Platelet Volume 11.9 fL (9.4-12.3); Platelet Count 233 X10*3/uL (160-400); Red Blood Count 2.94 X10*6/uL (4.20-5.50); Red Cell Distribution Width 14.7 % (11.0-16.0)
[2024-05-07 11:20] LABS: Anion Gap 14 (12-20); Blood Urea Nitrogen 34 mg/dL (9-16); Carbon Dioxide 26 mmol/L (22-29); Chloride 108 mmol/L (96-108); Estimated Glomerular Filt Rate 21; Iron 64 mcg/dL (30-160); Percent Iron Saturation 29 % (15-50); Sodium 143 mmol/L (135-145); Total Iron Binding Capacity 222 mcg/dL (228-428); Unsaturated Iron Binding 158 ug/dL
[2024-05-07 11:37] LABS: Ferritin 104 ng/mL (10-250)
== END 2024-05-07 09:57 | disposition home or self-care (01) ==
LOC: HO.10HDL 09:56
PROVIDERS: Visit Provider Internal Medicine Hypertension Specialist
DX: E87.1 Hypo-osmolality and hyponatremia (principal); N18.4 Chronic kidney disease, stage 4 (severe)
CPT/HCPCS: 36415; 80051; 82565; 82728; 83540; 84520; 85027

== ENCOUNTER 2024-09-05 09:00 | Outpatient (AMB) | payer OTHER, SELFPAY ==
--- OUTSIDE RECORDS SUMMARY | 2024-09-05 09:39 | XMS_ITS ---
Author Name Odom SANDRA Deilsajohnnie Address [address] [place] [address] Phone [phone] [facility] Care Team Providers Care Surfboard Maker Name Role Phone Michelle Oodm Unavailable [phone] Unavailable Unavailable Unavailable Signed ORDERS, [facility] Unavailable Orders, [facility] Unavailable [phone] Unavailable Unavailable [phone] [facility] Unavailable [phone] DERIK HYDE Unavailable [phone] Reason for Referral Not Available Allergies, adverse [...] 400 mg Cap 1 Cap by mouth BID 2021-07-06 No Data Available Famotidine 40 mg Tab TAKE 1 TABLET BY MO UTH AT BEDTIME 2021-09-29 2024-01-09 Ferrous Sulfate 325 (65 Fe) MG Tab 1 tab every other day 2021-09-29 2024-01-09 metFORMIN 1000 mg Tab 1 tab by mouth daily 2021-09-29 No Data Available Metoprolol Tartrate 25 [...] TABLET BY M OUTH EVERY DAY 2023-07-13 2024-06-10 Farxiga 10 mg Tab 1 tablet by mouth daily 2023-04-23 No Data Available Omeprazole 20 mg Cap delayed rel TAKE 1 CAPSULE BY MOUTH AT BEDTIME 2023-05-13 No Data Available Ferrous Sulfate 325 (65 Fe) MG Tab 1 tablet orally daily 2024-06-10 2024-06-10 Ferrous Sulfate 325 (65 Fe) MG Tab TAKE 1 TABLET BY MOUTH EVERY DAY 2023-04-28 No Data Available Albuterol Sulfate HFA 108 (90 Base) MCG/ACT Aerosol Solution Inhalation 1-2 puffs every 4-6 hrs, as needed for coughing or SOA 2024-06-10 No Data Available Problem List Problem Status Onset Date Resolved Date Synopsis Gout Active 2022-05-02 N/A Rx: allopurino l Member to follow low purine diet Atrial fibrillationHypercoagulable state due to atrial fibrillation, unspecified typePacemaker Active 2024-01-09 N/A Rx: am iodarone, eliquis - cardiac diet, low NA intake, control BP and cholesterol levels, limit caffeine intake, and no alcohol. sees crusher dry ground mica yearly Retinopathy, diabetic, bilateral Active 2024-01-09 N/A sees almond paste molder every 4 months Other problems related to [facility] facilities and other health care Active 2024-01-09 N/A FALL CONTINGENCY PLANMember to call for the following symptoms: Blood sugar <80??/ BP <110/70??/ Fall??/ WeaknessPlanned intervention: Encourage extra fluid intake / Assess for change in mental status and provide reassurance if none (patient's Baseline is _) / Review importance of sitting for two to three minutes prior to standing after laying down Forgetfulness Active 2024-01-09 N/A patient katherine ble to provide me with her , year or location. patient assisted by her son as per son and patient patient does not have hx. of dementia or Alzheimer's and she is not forgetful. GERD (gastroesophageal reflu x disease) Active 2024-01-09 N/A Rx: omeprazole D on't lie down for at least 2 to 3 hours after eating small meals, avoid fatty foods, avoid spicy food, avoid chocolate, avoided caffeinated drinks, avoid alcoholic beverages. Sick sinus syndrome Active 2024-06-10 N/A - Sta tus post urgent placement of a Medtronic dual-chamber left bundle pacer by Dr. Padilla on 04/25/2022-Device check in March 2023 alerted that she was in atrial arrhythmia greater than 20% of the time but in looking at histograms, it seems like she was in persistent atrial flutter or atrial tachycardia with ventricular rates in the 110s to 120s at least from January 2023 to June 2023 at which point she spontaneously converted out-Most recent device check in January 2024 showed normal device function, no arrhythmias, 94% a pacing, less than 1% V pacing Heart failure with preserved ejection fraction Active 2024-06-10 N/A - Had HFpEF sy mptoms while in a flutter with RVR but was clinically euvolemic so it is unclear if it was truly HFpEF or just a subjective awareness of her higher heart rates- ROMAN from April 2022 showed EF of 50 to 55% with normal regional wall motion, severe biatrial enlargement, normal RV size with mildly reduced systolic function, no hemodynamically significant valve disease, likely normal pulmonary artery systolic pressureEuvolemic today on exam, chronic, unchanged dyspnea with more than ordinary exertion that is more likely related to deconditioning, obesity, aging, I do not believe she warrants a maintenance diuretic, CT of the chest to rule out amiodarone induced lung toxicity Heart disease, hypertensive, with heart failure Active 2024-01-09 N/A Rx: lisinopril, metoprolol Monitor BP routinely, low salt diet, exercise as tolerable, and continue f/u care with PCP.TSH 4.94Free T4 1.04eGFR 24 (L)Creatinine 2.05 (H)Glucose 100AST (SGOT) 13ALT (SGPT) 12Albumin 3.5Monitor for now 04/24/24 Type 2 diabetes mellitus wit h hyperlipidemia Active 2022-03-03 N/A FBG 173 (01/09/20 24) Rx: farxiga, metformin- patient education the importance of diabetic diet, exercise, medication compliance. patient education on hypoglycemia and hyperglycemia signs and symptoms. monitor daily BGL. patient to assess feet daily for any cuts or wounds and to notify pcp or [facility] as soon as possible. Rx: simvastatinweight management, exercising regularly, eating a diet low in saturated or transfat, no smoking, and limiting alcohol intake.06/10/24 fasting 95. If blood sugar is less than 70, and she is shaking, sweaty, and feels nausea, give 6 oz of fruit juice, or 4 glucose tablet, or 6 oz of soda to quickly raise blood sugar, recheck in 10 minutes, if still low, repeat. If above 70 and no symptoms, eat a small protein rich snack. Asthma Active 2022-05-02 N/A Rx: montelukas t, pro-air Patient to avoid triggers, if patient experiences exacerbations to call CB and pcp Con tingency plan:1. Start prednisone 40 mg daily * 5days; 2. Increase Neb treatments/MDI use to q4h x3 days3. ??Call CB at the first sign of SOB or increased cough and sputum production. ??4. Schedule f/u with primary LITHOSTRIPPER in 1-2 days.?? Stage 4 chronic kidney disease Active 2024-06-10 N/A Monitors every 3 months. No plan for HDTSH 4.94Free T4 1.04eGFR 24 (L)Creatinine 2.05 (H)Glucose 100AST (SGOT) 13ALT (SGPT) 12Albumin 3.5Monitor for now 04/24/24.-avoid nephrotoxic agents-routine follow up with labs-continue DM and CV medications Mild depression Active 2024-06-10 N/A phq4 show ed mild depression. Worries about things at times, stress about people and things. Sleeps well most of the time. For now, declined medication intervention Hypertension Active 2024-06-10 N/A Metoprolol T artrate 25 mg If BP over 180/90, dizziness, can take an additional 12.5 mg (1/2 tab) for the day, increase fluids, rest, call CB Lower back pain Active 2024-06-10 N/A Stiffness LBP, pain dull, aching, worse with prolonged sitting. Better with stretching. No radiation to buttocks, thigh, legs.Gabapentin works well Obesity (BMI 30.0-34.9) Active 2024-07-08 N/A B PR 33.98Stay with healthier food. Caloric-dense food such as fried carbs, deep-fried meat, carb-dense food, and sugary drinks should be avoided. Encounters Encounters Type Facility Date of Service Diagnosis/Co mplaint Medication List Documented (1159F) [facility], ([place]) 02/15/2022 Medication List Documented (1159F) [facility], ([place]) 02/15/2022 Medication List Documented (1159F) [facility] Medication List Documented (1159F) [facility] Medication List Documented (1159F) [facility] Medication List Documented (1159F) [facility] ([place]20[place] Type 2 diabetes mellitus wit hout complications New patient,40-59min; chronic exacerbation, 2 stable chronic or 1 acute illness add add modifier 95 for video (do not use for phone, instead use 90826-64) [facility] ([place]) 05/02/2022 Type 2 diabetes mellitus wit h [...] (do not use for phone, instead use 46469-82) [facility], ([place]) 05/02/2022 New patient,40-59min; chronic exacerbation, 2 stable chronic or 1 acute illness add add modifier 95 for video (do not use for phone, instead use [id number]) [facility], ([place]) 05/02/2022 New patient,40-59min; chronic exacerbation, 2 stable chronic or 1 acute illness add add modifier 95 for video (do not use for phone, instead use 38888-17) [facility], ([place]) 05/02/2022 New patient,40-59min; chronic exacerbation, 2 stable chronic or 1 acute illness add add modifier 95 for video (do not use for phone, instead use 11307-46) [facility], ([place]) 05/02/2022 New patient,40-59min; chronic exacerbation, 2 stable chronic or 1 acute illness add add modifier 95 for video (do not use for phone, instead use 01477-48) [facility], ([place] 05/02/2022 New patient,40-59min; chronic exacerbation, 2 stable chronic or 1 acute illness add add modifier 95 for video (do not use for phone, instead use 73540-72) [facility], ([place]) 05/02/2022 New patient,40-59min; chronic exacerbation, 2 stable chronic or 1 acute illness add add modifier 95 for video (do not use for phone, instead use 70519-62) [facility] ([place] 05/02/2022 Estab. patient 30-39min; chronic exacerbation, 2 stable chronic or 1 acute illness add add modifier 95 for video, (do not use for phone, instead use 03631-23) [facility] ([place] 01/09/2024 Type 2 diabetes mellitus wit [...] (do not use for phone, instead use 01737-63) [facility] 01[place]09/20[place] Estab. patient 30-39min; chronic exacerbation, 2 stable chronic or 1 acute illness add add modifier 95 for video, (do not use for phone, instead use 09641-76) [facility] ([place] 01/09/20[place] Estab. patient 30-39min; chronic exacerbation, 2 stable chronic or 1 acute illness add add modifier 95 for video, (do not use for phone, instead use 82949-20) [facility] ([place] 01/09/2024 Estab. patient 30-39min; chronic exacerbation, 2 stable chronic or 1 acute illness add add modifier 95 for video, (do not use for phone, instead use 60386-61) [facility] ([place] 01/09/2024 Estab. patient 30-39min; chronic exacerbation, 2 stable chronic or 1 acute illness add add modifier 95 for video, (do not use for phone, instead use 03629-00) [facility], ([place]) 01/09/2024 Estab. patient 30-39min; chronic exacerbation, 2 stable chronic or 1 acute illness add add modifier 95 for video, (do not use for phone, instead use 20184-24) [facility], ([place]) 01/09/2024 Estab. patient 30-39min; chronic exacerbation, 2 stable chronic or 1 acute illness add add modifier 95 for video, (do not use for phone, instead use 35430-65) [facility], ([place] 01/09/2024 Estab. patient 20-29min; 1 stable chronic or 2 minor; add add modifier 95 for video, modifier 93 for phone [facility] ([place] 06/10/2024 Type 2 diabetes mellitus wit h other specified complicationHyperlipidemia, unspecifiedGout, unspecifiedUnspecified asthma, uncomplicatedUnspecified atrial fibrillationOther thrombophiliaPresence of cardiac pacemakerGastro-esophageal reflux disease without esophagitisOther general symptoms and signsType 2 diabetes w unsp diabetic rtnop w/o macular edemaSick sinus syndromeObesity, class 1Body mass index (bmi) 33.0-33.9, adultType 2 diabetes mellitus with diabetic chronic kidney diseaseChronic kidney disease, stage 4 (severe)Hyp hrt & chr kdny dis w hrt fail and stg 1-4/unsp chr kdnyUnspecified diastolic (congestive) heart failureDepression, unspecifiedLow back pain, unspecifiedOther problems related to medical facilities and other health care Estab. patient 20-29min; 1 stable chronic or 2 minor; add add modifier 95 for video, modifier 93 for [facility], ([place] 06/10/2024 Estab. patient 20-29min; 1 stable chronic or 2 minor; add add modifier 95 for video, modifier 93 for [facility] 06/10/2024 Estab. patient 20-29min; 1 stable chronic or 2 minor; add add modifier 95 for video, modifier 93 for [facility] ([place] 06/10/2024 Estab. patient 20-29min; 1 stable chronic or 2 minor; add add modifier 95 for video, modifier 93 for [facility] ([place] 06/10/2024 Estab. patient 20-29min; 1 stable chronic or 2 minor; add add modifier 95 for video, modifier 93 for [facility], ([place] 06/10/2024 Estab. patient 20-29min; 1 stable chronic or 2 minor; add add modifier 95 for video, modifier 93 for [facility] ([place]) 06/10/2024 Vital Signs Date of Collection Vitals 2022-02-15 13:08:05 Height - 152.4 cm 2022-05-02 11:11:12 Height - 149.86 cmWe ight - 90.72 kgBody Mass Index (BMI) - 40.4 kg/m2 2024-01-09 06:11:53 Height - 132.08 cmWe ight - 81.65 kgBody Mass Index (BMI) - 46.8 kg/m2Pain Scale - 5.0 {score} 2024-06-10 06:15:16 Height - 152.4 cmWei ght - 78.93 kgBody Mass Index (BMI) - 33.98 kg/m2BP Diastolic - 80.0 mm[Hg]BP Systolic - 138.0 mm[Hg]Heart Rate - 77.0 /minPain Scale - 0.0 {score} Social History Social History Social History Observation Description Effec tive Time Current Smoking Status Former smoker 5 Sex Female Gender identity Woman History of [...] Availa ble Pain Assessment - Pain Documented on a Pain Scale (1125F) 1125F 2022-02-15 No Data Available No Data Keyanna ilable No Data Available [id number] 2022-02-15 No Data Available No Data Available New patient,40-59min; chronic exacerbation, 2 stable chronic or 1 acute illness add add modifier 95 for video (do not use for phone, instead use 29593-54) [id number] 2022-05-02 No Data Available No Data Availa [...] (do not use for phone, instead use 11394-42) [id number] 2024-01-09 No Data Available No Data Availa ble Medication List Documented (1159F) 1159F 2024-01-09 No Data Available No Data Keyanna ilable Medication Review by prescribing provider or pharmacist documented (1160F) 1160F 2024-01-09 No Data Available No Data Keyanna ilable Pain Assessment - Pain Documented on a Pain Scale (1125F) 1125F 2024-01-09 No Data Available No Data Keyanna ilable BMI obtained (3008F) 3008F 2024-01-09 No Data [...] No Data Available No Data Avail able Estab. patient 20-29min; 1 stable chronic or 2 minor; add add modifier 95 for video, modifier 93 for phone [id number] 2024-06-10 No Data Available No Data Availa ble Medication Review by prescribing provider or pharmacist documented (1160F) 1160F 2024-06-10 No Data Available No Data Keyanna ilable Pain Assessment - NO pain present (1126F) 1126F 2024-06-10 No Data Available No Data A vailable Advance Care Directive Advance care planning discussion documented in the medical record (1158F) 1158F 2024-06-10 No Data Available No Data Availa ble Advance care planning discussed and documented ? advance care plan or surrogate decision-maker was documented in the medical record. (1123F) 1123F 2024-06-10 No Data Available No Data Availa ble Medication List Documented (1159F) 1159F 2024-06-10 No Data Available No Data Keyanna ilable Functional Status Assessed (1170F) 1170F 2024-06-10 No Data Available No Data Avail able [...] Date Patient alert and oriented x1, forgetful sometimes 2024-06-10 caregiver: goes daily 2024-01-09 Assessments Date of [...] and other health careCKD (chronic kidney disease) 2024-06-10 06:15:16 Other problems relat ed to medical facilities and other health care<Add contingency plans here>Type 2 diabetes mellitus with hyperlipidemiaFBG 173 (01/09/2024) Rx: farxiga, metformin- patient education [...] or transfat, no smoking, and limiting alcohol intake.06/10/24 fasting 95. If blood sugar is less than 70, and she is shaking, sweaty, and feels nausea, give 6 oz of fruit juice, or 4 glucose tablet, or 6 oz of soda to quickly raise blood sugar, recheck in 10 minutes, if still low, repeat. If above 70 and no symptoms, eat a small protein rich snack.GoutRx: allopurinol Member to follow low purine dietAsthmaRx: montelukast, pro-air Patient to avoid triggers, if patient experiences exacerbations to call CB and pcpContingency plan:1. Start prednisone 40 mg daily * 5days; 2. Increase Neb treatments/MDI use to q4h x3 days3. ??Call CB at the first sign of SOB or increased cough and sputum production. ??4. Schedule f/u with primary LITHOSTRIPPER in 1-2 days.??Heart disease, hypertensive, with heart failureRx: lisinopril, metoprolol Monitor BP routinely, low salt diet, exercise as tolerable, and continue f/u care with PCP.TSH 4.94Free T4 1.04eGFR 24 (L)Creatinine 2.05 (H)Glucose 100AST (SGOT) 13ALT (SGPT) 12Albumin 3.5Monitor for now 04/24/24Atrial fibrillationHypercoagulable state due to atrial fibrillation, unspecified typePacemakerRx: amiodarone, eliquis - cardiac diet, low NA intake, control BP and cholesterol levels, limit caffeine intake, and no alcohol. sees crusher dry ground mica yearlyGERD (gastroesophageal reflux disease)Rx: omeprazole Don't lie down for at least 2 to 3 hours after eating small meals, avoid fatty foods, avoid spicy food, avoid chocolate, avoided caffeinated drinks, avoid alcoholic beverages.Forgetfulnesspatient unable to provide me with her , year or location. patient assisted by her son as per son and patient patient does not have hx. of dementia or Alzheimer's and she is not forgetful.Retinopathy, diabetic, bilateralsees almond paste molder every 4 monthsOther problems related to medical facilities and other health careFALL CONTINGENCY PLANMember to call for the following symptoms: Blood sugar <80??/ BP <110/70??/ Fall??/ WeaknessPlanned intervention: Encourage extra fluid intake / Assess for change in mental status and provide reassurance if none (patient's Baseline is _) / Review importance of sitting for two to three minutes prior to standing after laying downSick sinus syndrome- Status post urgent placement of a Medtronic dual-chamber left bundle pacer by Dr. Padilla on 04/25/2022-Device check in March 2023 alerted that she was in atrial arrhythmia greater than 20% of the time but in looking at histograms, it seems like she was in persistent atrial flutter or atrial tachycardia with ventricular rates in the 110s to 120s at least from January 2023 to June 2023 at which point she spontaneously converted out-Most recent device check in January 2024 showed normal device function, no arrhythmias, 94% a pacing, less than 1% V pacingHeart failure with preserved ejection fraction- Had HFpEF symptoms while in a flutter with RVR but was clinically euvolemic so it is unclear if it was truly HFpEF or just a subjective awareness of her higher heart rates- ROMAN from April 2022 showed EF of 50 to 55% with normal regional wall motion, severe biatrial enlargement, normal RV size with mildly reduced systolic function, no hemodynamically significant valve disease, likely normal pulmonary artery systolic pressureEuvolemic today on exam, chronic, unchanged dyspnea with more than ordinary exertion that is more likely related to deconditioning, obesity, aging, I do not believe she warrants a maintenance diuretic, CT of the chest to rule out amiodarone induced lung toxicityStage 4 chronic kidney diseaseMonitors every 3 months. No plan for HDTSH 4.94Free T4 1.04eGFR 24 (L)Creatinine 2.05 (H)Glucose 100AST (SGOT) 13ALT (SGPT) 12Albumin 3.5Monitor for now 04/24/24.-avoid nephrotoxic agents-routine follow up with labs-continue DM and CV medicationsMild depressionphq4 showed mild depression. Worries about things at times, stress about people and things. Sleeps well most of the time. For now, declined medication interventionHypertensionMetoprolol Tartrate 25 mgIf BP over 180/90, dizziness, can take an additional 12.5 mg (1/2 tab) for the day, increase fluids, rest, call CBLower back painStiffness LBP, pain dull, aching, worse with prolonged sitting. Better with stretching. No radiation to buttocks, thigh, legs.Gabapentin works wellObesity (BMI 30.0-34.9)BMI 33.98Stay with healthier food. Caloric-dense food such as fried carbs, deep-fried meat, carb-dense food, and sugary drinks should be avoided. Plan of Care Date of Service Plans 2022-02-15 13:08:05 Medication Review by prescribing provider or pharmacist documented (1160F)Medication List Documented (1159F)Functional Status Assessed (1170F)Advance Care Directive Advance care planning discussion documented in the medical record (1158F)Pain Assessment - Pain Documented (1125F)Televideo new patient,40-59min; chronic exacerbation, 2 stable chronic or 1 acute illness add modifier 95Continue to see PCP. Follow-up with Dena as needed for any acute or disease [...] limit caffeine intake, and no alcohol. sees crusher dry ground mica yearlyRx: omeprazole Don't lie down for at [...] or Alzheimer's and she is not forgetful.sees almond paste molder every 4 monthsFALL CONTINGENCY PLANMember to call [...] high dose Gabapentin, Baclofen, Fleet Enema, Morphine/Codeine)sees telephone order supervisor every 4 monthsunable to find gfr lab work 2024-06-10 06:15:16 New Albuterol Sulfat e HFA 108 (90 Base) MCG/ACT Aerosol Solution Inhalation 1-2 puffs every 4-6 hrs, as needed for coughing or SOA #1 applicator [id number] Status Assessed (1170F)Advance Care Directive Advance care planning discussion documented in the medical record (1158F)Advance care planning discussed and documented ? advance care plan or surrogate decision-maker was documented in the medical record. (1123F)DBP 80-89 (3079F)Estab. patient 20-29min; 1 stable chronic or 2 minor; add add modifier 95 for video, modifier 93 for phoneMedication List Documented (1159F)Medication Review by prescribing provider or pharmacist documented (1160F)Pain Assessment - NO pain present (1126F)SBP 130-139 (3075F)Continue to see PCP. Follow-up with [facility] as needed for any acute or disease education needs that may arise.Call if you have any questions, comments, or concerns.Keep taking your medications as prescribed. Goals Date Goal 2022-02-15 Remember to 2022-02-15 [...] up appointments with established PCP and Specialist 2024-06-10 Remember to follow u p with PCP and specialists as directed. 2024-06-10 BP cuff ordered Health Concerns Date Concern 2024-06-10 Visit completed valerio doan audio/video.Patient/Guardian agreed to visit via telehealth. Today, patient has chief complaint of: follow up care and comprehensive review.Reviewed Allergies, Medications, Active Medical conditions, past medical/surgical history, Social history. 2024-06-10 Most recent hospital stay(s) or ER visit(s) and precipitating factors: 08/04/2022 2024-06-10 Open HEDIS Measure r chung: completed 2024-06-10 BP cuff
[2024-09-05 09:40] VITALS: BP 138/88; PULSE 58; O2SAT 99; BMI 37.0
--- NOTE | 2024-09-05 09:40 | HO.NEPHOV ---
Vital Signs 09/05/24 09:40 Height 4 ft 10 in Weight 177 lb BMI 37.0 BP 138/88 Blood Pressure Location Lt brachial Position Sitting Pulse 58 Pulse Source Pulse Oximeter Pulse Oximetry (%) 99 Oxygen Delivery Method Room Air Intake Visit Reasons: CKD/ Conf Subsurface Augmentee Operator Required: Yes Subsurface Augmentee Operator Name: [id number] Christie Accompanied by: Friend Allergies aspirin [ASA] Allergy (Severe, Verified 09/05/24 09:42) FACIAL SWELLING naproxen [NAPROXEN] Allergy (Intermediate, Verified 09/05/24 09:42) NAUSEA & VOMITING hydrocodone [From Vicodin] Allergy (Mild, Verified 09/05/24 09:42) itching NSAIDS (Non-Steroidal Anti-Inflamma [Nsaids] Allergy (Mild, Verified 09/05/24 09:42) itching penicillamine Allergy (Mild, Verified 09/05/24 09:42) itching Medication List - Last Reconciled 09/05/24 by Garret Vizcaino MD [adult pullups As directed] allopurinol 100 mg PO DAILY 90 days alum-mag hydroxide-simeth 200-200-20 mg/5 mL mL PO amiodarone 200 mg PO .once a day 90 days apixaban (Eliquis) 5 mg PO Q12H blood pressure monitor As directed blood pressure test kit-large ([employer]ing[employer] Blood Pressure Monitor kit) As directed blood sugar diagnostic As directed blood sugar diagnostic (FreeStyle Lite Strips) Use 1 strip once a day blood sugar diagnostic (FreeStyle Lite Strips) test daily blood-glucose meter (FreeStyle Lite Meter kit) test daily blood-glucose meter (FreeStyle Lite Meter kit) As directed calcium carbonate (Oyster Shell Calcium) 500 mg PO DAILY 90 days cholecalciferol (vitamin D3) 25 mcg PO DAILY 90 days commode As directed dapagliflozin propanediol (Farxiga) 10 mg PO DAILY 90 days [disposable bedpads As directed] disposable gloves As directed disposable gloves As directed [disposable underwear As directed] ferrous sulfate 325 mg PO DAILY folic acid 1 mg PO DAILY 90 days gabapentin 400 mg PO BID 90 days [incontinence wipes As directed] lancets (FreeStyle Lancets) test daily lancets (FreeStyle Lancets) USe 1 lancet once a day loratadine 10 mg PO DAILY mecobalamin (vitamin B12) 1,000 mcg sublingual BEDTIME 90 days metformin 2,000 mg (2 x 1,000 mg) PO DAILY 90 days methylcellulose (laxative) (Citrucel) 500 mg PO DAILY montelukast 10 mg PO DAILY omeprazole 20 mg PO BEDTIME ondansetron HCl 4 mg PO DAILY PRN 90 days [personal cleansing wipes As directed] sennosides (Natural Senna Laxative) 8.6 mg PO BEDTIME simvastatin 10 mg PO BEDTIME [toilet frame As directed] tramadol 50 mg PO Q6H PRN Transfer Bench As directed triamcinolone acetonide 0.1% 1 appl topical DAILY 14 days underpads (Bed Underpads) As directed valacyclovir 1,000 mg PO Q8H 7 days walker (Ultra-Light Rollator misc) As directed HPI Comments Details: Samantha is a pleasant 83-year-old woman with a history of longstanding hypertension and diabetes mellitus with congestive heart failure, referred for chronic kidney disease. h/o DM x 20 years HFpEF A.flutter HTN CKD 4 recent serum creatinine was around 2.5 mg/dL and EGFR was around 20 mL/minute. About few years ago serum creatinine was 1.5 mg/dL. She has been taking Ibuprofen for about a month Used to take 2 day. Last dose was about 2 weeks ago. No weight loss No shortness of breath No chest pain No nausea or vomiting No diarrhea No polyuria, oliguria No edema No headache No palpitations or unexplained sweating 08/14/23 Here for follow up;;No specific complaints;Potassium was slightly elevated and creatinine bumped up from baseline. Lisinopril was stopped about a week ago;Subsurface Augmentee Operator service was used 09/11/23 Ran out of [facility];No new issues;Lab results pending 05/07/24 Samantha doing well. No new complaints today. She seems compliant with her medications. Subsurface Augmentee Operator service was used. 09/06/23 84-year-old female presenting with urinary retention symptoms. She describes difficulty in voiding, feeling as though her urine is obstructed, with only minimal intermittent dripping occurring. Specific details about the duration and onset were not provided, but the issue seems to be a chronic condition with recent exacerbations. She also has accompanying sore throat symptoms when she coughs, noted as adding to her general discomfort. The patient reports mild peripheral edema localized to the lower legs, characterized by transient resolution. Her blood glucose reading was 115 mg/dL in the morning, suggesting adequate control of her known diabetes mellitus. Additionally, she is noted to have mild iron deficiency anemia, contributing to her clinical profile. [facility] Medical History (Updated 07/25/23 @ 09:17 by Penny Andres MD) ROHINI (acute kidney injury) Lumbar pain Right knee pain Left knee pain Right hip pain Left hip pain Right shoulder pain Left hand pain Gout Morbid obesity Hyperlipidemia Lumbar radiculopathy B12 deficiency Normal colonoscopy Adenomatous colon polyp Asthma Acid reflux HTN (hypertension) Surgical History History of surgery History of colonoscopy History of total abdominal hysterectomy and bilateral salpingo-oophorectomy Family History Father No problems noted. Mother No problems noted. Son In good health Son In good health Daughter In good health Daughter In good health Daughter In good health Daughter In good health Social History Household Members Other:: lives alone- has a booking prizer Caregiver staying overnight: Yes Housing: Apartment Alcohol intake: never Patient Tobacco Use Status: Former Tobacco user Tobacco use type: Cigarette e-Cigarette/Vaping Use: Never Used Second Hand Smoke Exposure: No service: No Current occupational status: disabled Cognitive needs: Yes Hearing needs: No Vision needs: Yes Review of Systems Const Denies fever(s) and Denies weight loss Card Denies chest pain Resp Denies cough and Denies hemoptysis GI Denies abdominal pain, Denies diarrhea and Denies nausea Musc Denies back pain Neuro Denies focal weakness Physical Exam Vital Signs: Last Vital Signs Pulse 58 09/05/24 09:40 BP 138/88 09/05/24 09:40 Pulse Ox 99 09/05/24 09:40 Oxygen Delivery Method Room Air 09/05/24 09:40 BMI result Body Mass Index 37.0 Comfortable Neck supple no JVD. Lungs entry equal no rales. Heart S1-S2 heard no gallop or rub. Abdomen soft nontender. Neuro alert awake oriented. No asterixis. Extremities no edema. Results Reviewed Nephrology Results: Hgb 9.5 g/dl (12.0-16.0) L 05/07/24 WBC 6.0 X10*3/uL (4.8-10.8) 05/07/24 Plt Count 233 X10*3/uL (160-400) 05/07/24 Sodium 143 mmol/L (135-145) 05/07/24 Potassium 5.0 mmol/L (3.3-5.1) 05/07/24 Chloride 108 mmol/L (96-108) 05/07/24 Carbon Dioxide 26 mmol/L (22-29) 05/07/24 BUN 34 mg/dL (9-16) H 05/07/24 Creatinine 2.23 mg/dL (0.5-1.4) H 05/07/24 Calcium 9.4 mg/dL (8.4-10.2) 02/13/24 PTH Intact 80.7 pg/mL (8.7-77.1) H 02/13/24 Assessment & Plan Assessment & Plan (1) CKD (chronic kidney disease) stage 4, GFR 15-29 ml/min: Code(s): N18.4 - Chronic kidney disease, stage 4 (severe) Category: Medical Plan . Samantha is a pleasant 83-year-old woman with a history of chronic kidney disease in the setting of longstanding diabetes mellitus hypertension congestive heart failure. Underlying chronic kidney disease is most likely due to hypertensive diabetic kidney disease No obstructive uropathy based on renal ultrasound and evidence of glomerulonephritis The EGFR has been between 20 and 25 mL/minute for the last 3 years. Recent creatinine was 2.01. This could be her baseline. Recurrent hyperkalemia. She was on Lokelma once a day. Anemia due to chronic kidney disease. Recommendations Continue to Avoid NSAIDs 2 g sodium diet Optimize fluid intake Maintain A1c less than 7%. Maintain blood pressure less than 130/80 and avoid hypotension. Continue with the SGLT2 inhibitors for cardiorenal protection Agree with holding ALIYAH inhibitors due to hyperkalemia and worsening renal function . Stay on low-potassium diet. Repeat K levels today and assess need for Lokelma We will continue to monitor hemoglobin and reassess for possible need for erythropoietin replacement therapy. Given the degree of renal insufficiency , avoid metformin due to the risk of lactic acidosis. 09/05/24 - Have an ultrasound of your kidneys and bladder as directed. - Continue monitoring your blood sugar levels; your morning reading was okay. - Limit salt in your diet to help with swelling in your legs. - Return for blood tests in six weeks and follow-up in eight weeks. - Drink plenty of water and stay hydrated. - Follow all instructions for medications as previously prescribed. - Contact the office if you develop any new symptoms or if your condition worsens. Orders: Orders Basic Metabolic Panel 6 Weeks N18.4 - Chronic kidney disease, stage 4 (severe) Creatinine Urine 6 Weeks N18.4 - Chronic kidney disease, stage 4 (severe) Complete Blood Count Auto Diff 6 Weeks N18.4 - Chronic kidney disease, stage 4 (severe) US renal BI Today I10 - Essential (primary) hypertension, N18.4 - Chronic kidney disease, stage 4 (severe) UA and rflx microscopic 6 Weeks N18.4 - Chronic kidney disease, stage 4 (severe) Total Protein Urine Random 6 Weeks N18.4 - Chronic kidney disease, stage 4 (severe) Magnesium 6 Weeks N18.4 - Chronic kidney disease, stage 4 (severe) IRON PROFILE 6 Weeks N18.4 - Chronic kidney disease, stage 4 (severe) Coding Level of Care Code Est Pt Level 4 (24992) Diagnoses CKD (chronic kidney disease) stage 4, GFR 15-29 ml/min N18.4
== END 2024-09-05 09:54 | disposition home or self-care (01) ==
LOC: HO.HKA 09:00
PROVIDERS: PCP Internal Medicine; Visit Provider Internal Medicine Hypertension Specialist
DX: N18.4 Chronic kidney disease, stage 4 (severe) (principal)
CPT/HCPCS: 99214

== ENCOUNTER → 2024-09-05 09:00 | Outpatient (BNVA) | payer OTHER, SELFPAY | PROVIDERS: PCP Internal Medicine; Visit Provider Internal Medicine Hypertension Specialist | DX: N18.4 Chronic kidney disease, stage 4 (severe) (principal) | CPT/HCPCS: 99212 ==

== ENCOUNTER 2024-09-19 09:09 | Outpatient (REF) | payer OTHER, SELFPAY ==
--- NOTE | ~2024-09-19 | US_ITS ---
CLINICAL HISTORY: I10 - Essential (primary) hypertension US renal with Color Doppler Comparison: None Findings: Right kidney normal size and echotexture, 9.1 cm length. 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 Normal color flow. No hydronephrosis. Upper pole nonobstructing caliceal stone measuring 5 x 2 x 3 mm and lower pole renal cortical cyst measuring 0.8 x 0.7 x 0.7 cm. Left kidney normal size and echotexture, 8.9 cm length. 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 Normal color flow. No hydronephrosis. No nephrolithiasis. Exophytic lower pole complex lesion measuring 0.9 x 0.8 x 0.7 cm. Impression: 1. Kidneys normal size and position with normal cortical width and echotexture. 2. Nephrolithiasis on the right with incidental benign renal cortical cyst. 3. Indeterminate exophytic lesion lower pole left kidney correlate with CT or MRI with contrast renal protocol study This document has been electronically signed by: Spike Baires MD on 09/19/2024 11:58:35
--- OUTSIDE RECORDS SUMMARY | 2024-09-19 09:44 | XMS_ITS ---
Author Name Odom SANDRA Delisajohnnie Address [address] [place] [address] Phone [phone] [facility] Care Team Providers Care Cardroom Plastic Card Grader Name Role Phone Michelle Odom Unavailable [phone] Unavailable Unavailable Unavailable Signed ORDERS, [facility] Unavailable [phone] Orders, [facility] Unavailable [phone] Unavailable Unavailable [phone] [facility] Unavailable [phone] DERIK HYDE Unavailable [phone] Reason for Referral Not Available Allergies, adverse [...] limit caffeine intake, and no alcohol. sees drop tester yearly Retinopathy, diabetic, bilateral Active 2024-01-09 N/A sees travel registered nurse icu every 4 months Other problems related to [facility] facilities and other health care Active 2024-01-09 N/A FALL CONTINGENCY PLANMember to call for the following symptoms: Blood sugar <80 / BP <110/70 / Fall / WeaknessPlanned intervention: Encourage extra fluid intake / [...] Neb treatments/MDI use to q4h x3 days3. Call CB at the first sign of SOB or increased cough and sputum production. 4. Schedule f/u with primary FINANCE ADMIN in 1-2 days. Stage 4 chronic kidney disease Active 2024-06-10 [...] Obesity (BMI 30.0-34.9) Active 2024-07-08 N/A B [place] 33.98Stay with healthier food. Caloric-dense food such as fried carbs, deep-fried meat, carb-dense food, and sugary drinks should be avoided. Encounters Encounters Type Facility Date of Service Diagnosis/Co mplaint Medication List Documented (1159F) [facility] ([place] Medication List Documented (1159F) [facility] Medication List Documented (1159F[place] [facility] Medication List Documented (1159F) [facility] Medication List Documented (1159F) [facility] Medication List Documented (1159F) [facility]20[place] Type 2 diabetes mellitus wit hout complications New patient,40-59min; chronic exacerbation, 2 stable chronic or 1 acute illness add add modifier 95 for video (do not use for phone, instead use [id number]) [facility]2022 Type 2 diabetes mellitus wit [...] (do not use for phone, instead use 56923-67) [facility], ([place]) 05[place]02/20[place] New patient,40-59min; chronic exacerbation, 2 stable chronic or 1 acute illness add add modifier 95 for video (do not use for phone, instead use 90108-47) [facility] New patient,40-59min; chronic exacerbation, 2 stable chronic or 1 acute illness add add modifier 95 for video (do not use for phone, instead use 33386-69) [facility] New patient,40-59min; chronic exacerbation, 2 stable chronic or 1 acute illness add add modifier 95 for video (do not use for phone, instead use 34434-92) [facility] New patient,40-59min; chronic exacerbation, 2 stable chronic or 1 acute illness add add modifier 95 for video (do not use for phone, instead use 98614-94) [facility]20[place] New patient,40-59min; chronic exacerbation, 2 stable chronic or 1 acute illness add add modifier 95 for video (do not use for phone, instead use 48022-28) [facility]20[place] New patient,40-59min; chronic exacerbation, 2 stable chronic or 1 acute illness add add modifier 95 for video (do not use for phone, instead use 06246-25) [facility]20[place] Estab. patient 30-39min; chronic exacerbation, 2 stable chronic or 1 acute illness add add modifier 95 for video, (do not use for phone, instead use 95448-59) [facility]20[place] Type 2 diabetes mellitus wit h [...] (do not use for phone, instead use 12467-52) [facility]09[place] Estab. patient 30-39min; chronic exacerbation, 2 stable chronic or 1 acute illness add add modifier 95 for video, (do not use for phone, instead use 47491-08) [facility] Estab. patient 30-39min; chronic exacerbation, 2 stable chronic or 1 acute illness add add modifier 95 for video, (do not use for phone, instead use 46194-38) [facility] Estab. patient 30-39min; chronic exacerbation, 2 stable chronic or 1 acute illness add add modifier 95 for video, (do not use for phone, instead use 72181-89) [facility] Estab. patient 30-39min; chronic exacerbation, 2 stable chronic or 1 acute illness add add modifier 95 for video, (do not use for phone, instead use 39273-61) [facility]20[place] Estab. patient 30-39min; chronic exacerbation, 2 stable chronic or 1 acute illness add add modifier 95 for video, (do not use for phone, instead use 92311-37) [facility]20[place] Estab. patient 30-39min; chronic exacerbation, 2 stable chronic or 1 acute illness add add modifier 95 for video, (do not use for phone, instead use [id number]) [facility] Estab. patient 20-29min; 1 stable chronic or 2 minor; add add modifier 95 for video, modifier 93 for phone [facility] 06[place]10/2024 Type 2 diabetes mellitus wit h [...] modifier 95 for video, modifier 93 for [facility]/10/20[place] Estab. patient 20-29min; 1 stable chronic or 2 minor; add add modifier 95 for video, modifier 93 for phone [facility]/10/20[place] Estab. patient 20-29min; 1 stable chronic or 2 minor; add add modifier 95 for video, modifier 93 for [facility]/10/20[place] Estab. patient 20-29min; 1 stable chronic or 2 minor; add add modifier 95 for video, modifier 93 for [facility]/10/20[place] Estab. patient 20-29min; 1 stable chronic or 2 minor; add add modifier 95 for video, modifier 93 for [facility]/10/20[place] Estab. patient 20-29min; 1 stable chronic or 2 minor; add add modifier 95 for video, modifier 93 for [facility] 06/10/2024 Vital Signs Date of Collection Vitals [...] tive Time Current Smoking Status Former smoker 2024-09-01 9 Sex Female Gender identity Woman History of [...] No Data Keyanna ilable No Data Available [id number] 2022-02-15 No Data Available No Data Available New patient,40-59min; chronic exacerbation, 2 stable chronic or 1 acute illness add add modifier 95 for video (do not use for phone, instead use [id number]) [id number] 2022-05-02 No Data Available No Data Availa [...] (do not use for phone, instead use 16020-88) [id number] 2024-01-09 No Data Available No Data Availa [...] ble Advance care planning discussed and documented advance care plan or surrogate decision-maker was documented in the medical record. (1123F) [id number] 2024-01-09 No Data Available No Data Availa ble Functional Status Assessed (1170F) [id number] 2024-01-09 No Data Available No Data Avail able Estab. patient 20-29min; 1 stable chronic or 2 minor; add add modifier 95 for video, modifier 93 for phone [id number] 2024-06-10 No Data Available No Data Availa [...] ble Advance care planning discussed and documented advance care plan or surrogate decision-maker was [...] Neb treatments/MDI use to q4h x3 days3. Call CB at the first sign of SOB or increased cough and sputum production. 4. Schedule f/u with primary FINANCE ADMIN in 1-2 days. Heart disease, hypertensive, with heart failureRx: lisinopril, metoprolol [...] limit caffeine intake, and no alcohol. sees drop tester yearlyGERD (gastroesophageal reflux disease)Rx: omeprazole Don't lie [...] and she is not forgetful.Retinopathy, diabetic, bilateralsees travel registered nurse icu every 4 monthsOther problems related to medical facilities and other health careFALL CONTINGENCY PLANMember to call for the following symptoms: Blood sugar <80 / BP <110/70 / Fall / WeaknessPlanned intervention: Encourage extra fluid intake / [...] arise. Continue to see PCP. Follow-up with Dena as [...] record (1158F)Advance care planning discussed and documented advance care plan or surrogate decision-maker was [...] limit caffeine intake, and no alcohol. sees drop tester yearlyRx: omeprazole Don't lie down for at [...] or Alzheimer's and she is not forgetful.sees travel registered nurse icu every 4 monthsFALL CONTINGENCY PLANMember to call for the following symptoms: Blood sugar <80 / BP <110/70 / Fall / WeaknessPlanned intervention: Encourage extra fluid intake / Assess for change in mental status and provide reassurance if none (patient's Baseline is _) / Review importance of sitting for two to three minutes prior to standing after laying downAvoid nephrotoxic medications (NSAIDS, high dose Gabapentin, Baclofen, Fleet Enema, Morphine/Codeine)sees manager of supply chain every 4 monthsunable to find gfr lab work 2024-06-10 06:15:16 New Albuterol Sulfat e HFA 108 (90 Base) MCG/ACT Aerosol Solution Inhalation 1-2 puffs every 4-6 hrs, as needed for coughing or SOA #1 applicator [id number] Status Assessed (1170F)Advance Care Directive Advance care planning discussion documented in the medical record (1158F)Advance care planning discussed and documented advance care plan or surrogate decision-maker was [...] precipitating factors: 08/04/2022 2024-06-10 Open HEDIS Measure enedina wilkes: completed 2024-06-10 BP cuff
== END 2024-09-19 09:10 | disposition home or self-care (01) ==
LOC: HO.US 09:09
PROVIDERS: PCP Internal Medicine; Visit Provider Internal Medicine Hypertension Specialist
DX: I12.9 Hypertensive chronic kidney disease with stage 1 through stage 4 chronic kidney disease, or unspecified chronic kidney disease (principal); N18.4 Chronic kidney disease, stage 4 (severe)
CPT/HCPCS: 76775

== ENCOUNTER → 2024-09-19 09:12 | Outpatient (BNV) | payer OTHER, SELFPAY | PROVIDERS: PCP Internal Medicine; Visit Provider Radiology Diagnostic Radiology | DX: N28.1 Cyst of kidney, acquired (principal) | CPT/HCPCS: 76775 ==

== ENCOUNTER 2024-11-07 08:44 | Outpatient (REF) | payer OTHER, SELFPAY ==
--- OUTSIDE RECORDS SUMMARY | 2024-11-07 09:02 | XMS_ITS | Clinical Summary ---
Author Organization 300 [facility] Address [address] [place] [address] Phone Care Team Providers Care Inspector Aide Name Role Phone Penny Andres MD Primary Care Provider [phone] Allergies Active Allergy Reactions Criticality Noted Date Comments Aspirin 06/21/2022 Penicillins 06/21/2022 Medications amiodarone (PACERONE) 200 mg tablet Take 1 [...] mouth at bedtime. Active omeprazole 20 mg tablet,disintegr at, delay rel Take by mouth. Active simvastatin [...] Date Diagnosed Date SSS (sick sinus syndrome) ([facility] V24, [facility] V28) 12/09/2022 Overview (02/19/2024): - Status post urgent [...] in the future. 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 Snyder met her in consultation [...] Encounters Date Type Department Care Team Description 10/24/2024 9:25 AM EDT Ancillary Procedure [facility] Cardiology [facility] [address] [place] [address] 10/24/2024 Telephone [facility] Cardiology [facility] [address] [place] [address] Jaimie Noble NP from Last 3 Months Immunizations Name Administration [...] History Date Comments PAF (paroxysmal atrial fibrillation) ([facility] V2 4, [facility] V28) SSS (sick sinus syndrome) ([facility] V24, [facility] V28) (HFpEF) heart failure with p reserved ejection fraction ([facility] V24, [facility] V28) Hyperlipidemia Hypertension Social History Tobacco Use Types Packs/Day Years Used Date Smoking Tobacco: Never Passive Smoke Exposure: Never Smokeless Tobacco: Never Tobacco Cessation:Counseling Given: Not Answered Alcohol Use Standard Drinks/Week Comments Never 0 (1 standard drink = 0.6 oz pur e alcohol) Comments Unknown Sex and Gender Information Value Date Recorded Sex Assigned at Not on file Legal Sex Female 4:31 PM EST Gender Identity Not on file Sexual Orientation Not on file Obstetrics History Last Filed [...] 02/19/2024 9:27 AM EST Plan of Treatment Health Maintenance Due Date Last Done Comments Zoster Vaccines (1 of 2) 1990 RSV Immunization Adult Patients (1 - 1-dose 75+ series) 06/13/2015 Pneumococcal Vaccine: 50+ Years (2 of 2 - PCV) 02/13/2020 02/12/2019 Cholesterol Screening (Lipid Panel) 03/02/2022 Falls Risk Assessment 03/02/2022 Medicare Annual Wellness Visit 03/02/2022 Osteoporosis Screening (Bone Density Screening) 03/02/2022 Social Influencers of Health Screening 03/02/2022 COVID-19 Vaccine (3 season) 2023 04/21/2023, 06/26/2020 Depression Screening 04/03/2024 Influenza Vaccine (#1) 2024 , 02/12/2019, 03/20/2018, Additional history exists Hypertension/CHF/CAD [...] patient's age to complete this topic Meningococcal B Vaccine Aged Out No l onger eligible based on patient's age to complete this topic RSV Immunization Patients Under 20 months Aged Out No longer eligible based on patient's age to complete this topic Varicella Vaccines Aged Out No longer eligible based on patient's age to complete this topic Medical Devices Implanted Type Area Welder Machine Operator Device Identifier Shelf Expiration Date Model / Serial / Lot Medt-Card [place] Xt Dr Juan [id number] Implanted: (Quantity not on file) Cardiac Pacemaker [employer] - CARDIAC RHYTH-CRDM CHAPO XT DR JUAN [id number] / [id number] / Medt-Card [place] Xt Dr Juan [id number] Implanted: (Quantity not on file) Cardiac Pacemaker [employer] - CARDIAC RHYTH-CRDM [place]APO XT DR JUAN / [id number] / Procedures Procedure Name Priority Date/Time Associated Diagnosis Comments CARDIAC DEVICE CHECK- REMOTE- MURJ Routine 10/24/2024 9:22 AM EDT COMPREHENSIVE METABOLIC PANEL Routine 04/24/2024 8:33 AM EST Atrial flutter with rapid ventricular response (CMS/HCC V24, CMS/HCC V28) from Last 3 Months or Most Recently Relevant to Health Maintenance Results * Cardiac device check - Remote- MURJ (10/24/2024 9:22 AM EDT) Date Time Interrogation Session [id number] CV DEVICE CHECK Type Interrogation Session Remote CV DEVICE CHECK Implantable Pulse Generator Welder Machine Operator MDT CV DEVICE CHECK Implantable Pulse Generator Type IPG CV DEVICE CHECK Implantable Pulse Generator Model Chapo XT DR MRI [id number] CV DEVICE CHECK Implantable Pulse Generator Serial Number [id number] CV DEVICE CHECK Implantable Pulse Generator Implant Date 20220425 CV DEVICE CHECK Battery Remaining Longevity 136.0 CV DEVICE CHECK Battery Voltage 3.020 CV D EVICE CHECK Battery SAND CASTER APPRENTICE Trigger 2.625 CV DEVICE CHECK Battery Status Middle of Service CV DEVICE CHECK Emmanuel Statistic RA Percent Paced 67.21 CV DEVICE CHECK Emmanuel Statistic RV Percent Paced 38.30 CV DEVICE CHECK Atrial Tachy Statistic AT/AF [place] Percent 28.50 CV DEVICE CHECK Lead Channel Sensing Intrinsic Amplitude 1.625 CV DEVICE CHECK Lead Channel Setting Sensing Sensitivity 0.30 CV DEVICE CHECK Lead Channel Impedance Value 399 CV DEVICE CHECK Lead Channel Pacing Threshold Amplitude 0.500 CV DEVICE CHECK Lead Channel Pacing Threshold Pulse Width 0.4 CV DEVICE CHECK Lead Channel RA Pacing Threshold Date 2024-07-20 CV DEVICE CHECK Lead Channel Setting Pacing Amplitude 1.500 CV DEVICE CHECK Lead Channel Setting Pacing Pulse Width 0.4 CV DEVICE CHECK Lead Channel Sensing Intrinsic Amplitude 6.875 CV DEVICE CHECK Lead Channel Setting Sensing Sensitivity 0.90 CV DEVICE CHECK Lead Channel Impedance Value 551 CV DEVICE CHECK Lead Channel Pacing Threshold Amplitude 0.625 CV DEVICE CHECK Lead Channel Pacing Threshold Pulse Width 0.4 CV DEVICE CHECK Lead Channel RV Pacing Threshold Date 2024-09-29 CV DEVICE CHECK Lead Channel Setting Pacing [...] 6 CV DEVICE CHECK Date of Service 2024-10-24 CV DEVICE CHECK Anatomical Region Laterality Modality Device Interroga tion 09/30/2024 2:38 AM EDT Impressions 10/24/2024 9:19 AM EDT Normal Remote: With Events * Normal Device Function * Events or Alerts: 50 *AMS episodes Some oversensing / on eliquis * Battery: OK, 11.33 yrs * Sensing, impedance and thresholds reviewed * Programmed parameters reviewed * Presenting rhythm reviewed * Heart Rate Histograms reviewed Narrative Procedure Note Jaimie Noble, SANDRA - 10/24/2024 IMPRESSION: Normal Remote: With Events * Normal Device Function * Events or Alerts: 50 *AMS episodes Some oversensing / on eliquis * Battery: OK, 11.33 yrs * Sensing, impedance and thresholds reviewed * Programmed parameters reviewed * Presenting rhythm reviewed * Heart Rate Histograms reviewed Jaimie Noble NP CV IMPLANTABLE CARDIAC DEVIC E PROCEDURES Final Result * (ABNORMAL) Comprehensive metabolic panel (04/24/2024 8:33 AM EST) Sodium 141 133 - 145 mmol/L LAB CHEMISTRY METHOD 04/24/2024 10:23 AM [facility] Potassium 4.5 3.5 - 5.5 mmol/L LAB CHEMISTRY METHOD 04/24/2024 10:23 AM [facility] Chloride 107 96 - 110 mmol/L LAB CHEMISTRY METHOD 04/24/2024 10:23 AM [facility] CO2 29 21 - 32 mmol/L LAB CHEMISTRY METHOD 04/24/2024 10:23 AM [facility] Anion Gap 5 3 - 11 LAB CHEMISTRY METHOD 04/24/2024 10:23 AM [facility] Glucose 100 70 - 100 mg/dL LAB CHEMISTRY METHOD 04/24/2024 10:23 AM [facility] BUN 35(H) 5 - 25 mg/dL LAB CHEMISTRY METHOD 04/24/2024 10:23 AM [facility] Creatinine 2.05(H) 0.50 - 1.10 mg/dL LAB CHEMISTRY METHOD 04/24/2024 10:23 AM [facility] eGFR 24(L) >=60 mL/min/1. 73m2 LAB CHEMISTRY METHOD 04/24/2024 10:23 AM [facility] Comment:Calculation based on the Chronic Kidney Disease Epidemiology Collaboration (CKD-EPI) equation refit without adjustment for race. BUN/Creatinine Ratio 17.1 LAB CHEMISTRY METHOD 04/24/2024 10:23 AM [facility] Calcium 9.0 8.5 - 10.5 mg/dL LAB CHEMISTRY METHOD 04/24/2024 10:23 AM [facility] AST (SGOT) 13 10 - 42 unit/L LAB CHEMISTRY METHOD 04/24/2024 10:23 AM [facility] ALT (SGPT) 12 10 - 60 unit/L LAB CHEMISTRY METHOD 04/24/2024 10:23 AM [facility] Alkaline Phosphatase 71 42 - 121 unit/L LAB CHEMISTRY METHOD 04/24/2024 10:23 AM [facility] Total Protein 6.8 6.0 - 8.0 g/dL LAB CHEMISTRY METHOD 04/24/2024 10:23 AM [facility] Albumin 3.5 3.2 - 5.0 g/dL LAB CHEMISTRY METHOD 04/24/2024 10:23 AM [facility] Total Bilirubin 0.4 0.0 - 1.4 mg/dL LAB CHEMISTRY METHOD 04/24/2024 10:23 AM [facility] Blood Venous blood specimen / Unknown Venipuncture / Unknown 04/24/2024 8:33 AM EST 04/24/2024 9:37 AM EST us America Brooks MD LAB BLOOD ORDERABLES Final Resu lt [facility] [address] [place] [address], [place] [phone] from Last 3 Months or Most Recently Relevant to Health Maintenance Insurance MEDICAID - [place] [employer] MEDICARE Advance Directives Documents on File Type Date Recorded Patient Pilot Expl anation Health Care Decision (hx) 01/31/2021 AD WEST DIRECTIVE Health Care Decision (hx) 01/31/2021 AD WEST DIRECTIVE Health Care Decision (hx) 01/31/2021 AD WEST DIRECTIVE Health Care Decision (hx) 01/31/2021 AD WEST DIRECTIVE Health Care Decision (hx) 01/31/2021 AD WEST DIRECTIVE Health Care Decision (hx) 01/31/2021 AD WEST DIRECTIVE Care Teams Inspector Aide Relationship Specialty Start Date End Date Penny Andres MD [address] [facility] [address] [facility] Physician Associ D/B/A: [facility] TRELL Grubbs PCP - General 06/27/22
[2024-11-07 10:43] LABS: MANUAL DIFF FLAG NO
[2024-11-07 10:49] LABS: Appearance Urine Clear; Glucose Urine UA 500 mg/dL (Negative); PH 5.5 (5.0-9.0); Specific Gravity - Urine <= 1.005 (1.005-1.025); UMIC TRIGGER UA YES
[2024-11-07 10:53] LABS: Hematocrit 29.1 % (37.0-47.0); Hemoglobin 9.4 g/dl (12.0-16.0); Imm Gran Abs Auto 0.01 X10*3/uL (0.00-0.03); Imm Gran Pct Auto 0.2 % (0.0-0.4); Lymphocytes Absolute Auto 0.9 X10*3/uL (1.2-4.9); Mean Corpuscular HGB Conc 32.3 g/dl (31.0-35.0); Mean Corpuscular Hemoglobin 32.8 pg (27.0-33.0); Mean Corpuscular Volume 101.4 fL (80.0-98.0); NRBC Abs Auto 0.000 X10*3/uL (0.0-0.012); NRBC Pct Auto 0.0 /100WBC (0.0-0.2); Platelet Count 212 X10*3/uL (160-400); Red Blood Count 2.87 X10*6/uL (4.20-5.50); White Blood Count 4.8 X10*3/uL (4.8-10.8)
[2024-11-07 11:17] LABS: Anion Gap 12 (12-20); Blood Urea Nitrogen 35 mg/dL (9-16); Calcium 8.8 mg/dL (8.4-10.2); Carbon Dioxide 22 mmol/L (22-29); Chloride 112 mmol/L (96-108); Estimated Glomerular Filt Rate 19; Iron 59 mcg/dL (30-160); Magnesium 1.4 mg/dL (1.6-2.6); Percent Iron Saturation 27 % (15-50); Potassium 5.3 mmol/L (3.3-5.1); Sodium 141 mmol/L (135-145); Total Iron Binding Capacity 219 mcg/dL (228-428); Unsaturated Iron Binding 160 ug/dL
[2024-11-07 11:23] LABS: Total Protein Urine Random 26 mg/dL (<12)
== END 2024-11-07 08:45 | disposition home or self-care (01) ==
LOC: HO.10HDL 08:44
PROVIDERS: Visit Provider Internal Medicine Hypertension Specialist
DX: N18.4 Chronic kidney disease, stage 4 (severe) (principal)
CPT/HCPCS: 36415; 80048; 81001; 82570; 83540; 83735; 84156; 85025

== ENCOUNTER 2024-11-14 08:44 | Outpatient (AMB) | payer OTHER, SELFPAY ==
--- OUTSIDE RECORDS SUMMARY | 2024-11-14 09:07 | XMS_ITS | Clinical Summary ---
Author Organization 300 [facility] Address [address] [place] [address] Phone Care Team Providers Care Director Risk Name Role Phone Penny Andres MD Primary Care Provider [phone] Allergies Active Allergy Reactions Criticality Noted Date [...] Date Diagnosed Date SSS (sick sinus syndrome) ([facility] V24, [facility] V28) 12/09/2022 Overview (02/19/2024): - Status post [...] heart failure with p reserved ejection fraction ([facility] V24, [facility] V28) 12/09/2022 Overview (01/04/2024): - Had HFpEF [...] 06/21/2022 Overview (02/19/2024): - Was hospitalized at [facility] where Dr. Snyder met her in [...] Encounters Date Type Department Care Team Description 11/07/2024 Telephone [facility] Cardiology [facility] [address] [place] [phone] Davie Zepeda NP No Show (7.28.25) 10/24/2024 9:25 AM EDT Ancillary Procedure [facility] Cardiology [facility] [address] [address] [place] [phone] 10/24/2024 Telephone [facility] [address] [place] [id number] Jaimie Noble NP from Last 3 Months [...] History Date Comments PAF (paroxysmal atrial fibrillation) ([facility] V2 4, [facility] V28) SSS (sick sinus syndrome) ([facility] V24, [facility] V28) (HFpEF) heart failure with p reserved ejection fraction ([facility] V24, [facility] V28) Hyperlipidemia Hypertension Social History Tobacco Use [...] of Health Screening 03/02/2022 COVID-19 Vaccine (3 - season) 2023 04/21/2023, 06/26/2020 Depression Screening 04/03/2024 [...] this topic Medical Devices Implanted Type Area Film Maker Device Identifier Shelf Expiration Date Model / Serial / Lot Medt-Card [place] Xt Dr Juan [id number] Implanted: (Quantity not on file) Cardiac Pacemaker [employer] - CARDIAC RHYTH-CRDM CHAPO XT DR JUAN [id number] / [id number] / Medt-Card [place] Xt Dr Juan [id number] Implanted: (Quantity not on file) Cardiac Pacemaker [employer] - CARDIAC RHYTH-CRDM CHAPO XT DR JUAN / [id number] / Procedures Procedure Name Priority Date/Time Associated [...] 9:22 AM EDT) Date Time Interrogation Session [id number] CV DEVICE CHECK Type Interrogation Session Remote CV DEVICE CHECK Implantable Pulse Generator Film Maker MDT CV DEVICE CHECK Implantable Pulse Generator Type IPG CV DEVICE CHECK Implantable Pulse Generator Model Chapo XT MRI [id number] CV DEVICE CHECK Implantable Pulse Generator Serial Number [id number] CV DEVICE CHECK Implantable Pulse Generator Implant Date 20220425 CV DEVICE CHECK Battery Remaining Longevity 136.0 CV DEVICE CHECK Battery Voltage 3.020 CV D EVICE CHECK Battery FURNACE LOADER Trigger 2.625 CV DEVICE CHECK Battery Status Middle of Service CV DEVICE CHECK Emmanuel Statistic RA Percent Paced 67.21 CV DEVICE CHECK Emmanuel Statistic RV Percent Paced 38.30 CV DEVICE CHECK Atrial Tachy Statistic AT/AF [place] Percent 28.50 CV DEVICE CHECK Lead Channel [...] mmol/L LAB CHEMISTRY METHOD 04/24/2024 10:23 AM EST [facility] Potassium 4.5 3.5 - 5.5 mmol/L LAB CHEMISTRY METHOD 04/24/2024 10:23 AM EST [facility] Chloride 107 96 - 110 mmol/L LAB CHEMISTRY METHOD 04/24/2024 10:23 AM EST [facility] CO2 29 21 - 32 mmol/L LAB CHEMISTRY METHOD 04/24/2024 10:23 AM [facility] Anion Gap 5 3 - 11 LAB CHEMISTRY METHOD 04/24/2024 10:23 AM [facility] Glucose 100 70 - 100 mg/dL LAB CHEMISTRY METHOD 04/24/2024 10:23 AM [facility] BUN 35(H) 5 - 25 mg/dL LAB CHEMISTRY METHOD 04/24/2024 10:23 AM [facility] Creatinine 2.05(H) 0.50 - 1.10 mg/dL LAB CHEMISTRY METHOD 04/24/2024 10:23 AM [facility] eGFR 24(L) >=60 mL/min/1. 73m2 LAB CHEMISTRY METHOD 04/24/2024 10:23 AM [facility] Comment:Calculation based on the Chronic Kidney Disease Epidemiology Collaboration (CKD-EPI) equation refit without adjustment for race. BUN/Creatinine Ratio 17.1 LAB CHEMISTRY METHOD 04/24/2024 10:23 AM [facility] Calcium 9.0 8.5 - 10.5 mg/dL LAB CHEMISTRY METHOD 04/24/2024 10:23 AM [facility] AST (SGOT) 13 10 - 42 unit/L LAB CHEMISTRY METHOD 04/24/2024 10:23 AM [facility] ALT (SGPT) 12 10 - 60 unit/L LAB CHEMISTRY METHOD 04/24/2024 10:23 AM [facility] Alkaline Phosphatase 71 42 - 121 unit/L LAB CHEMISTRY METHOD 04/24/2024 10:23 AM [facility] Total Protein 6.8 6.0 - 8.0 g/dL LAB CHEMISTRY METHOD 04/24/2024 10:23 AM [facility] Albumin 3.5 3.2 - 5.0 g/dL LAB CHEMISTRY METHOD 04/24/2024 10:23 AM [facility] Total Bilirubin 0.4 0.0 - 1.4 mg/dL LAB CHEMISTRY METHOD 04/24/2024 10:23 AM EST [facility] Blood Venous blood specimen / Unknown Venipuncture / Unknown 04/24/2024 8:33 AM EST 04/24/2024 9:37 AM EST us America Brooks MD LAB BLOOD ORDERABLES Final Resu lt [facility] [address] [place] [address], from Last 3 Months or Most Recently Relevant to Health Maintenance Insurance MEDICAID - [place] [employer] MEDICARE Advance Directives Documents on File Type Date Recorded Patient Field Care Advocate Expl anation Health Care Decision (hx) 01/31/2021 AD WEST DIRECTIVE Health Care Decision (hx) 01/31/2021 AD WEST DIRECTIVE Health Care Decision (hx) 01/31/2021 AD WEST DIRECTIVE Health Care Decision (hx) 01/31/2021 AD WEST DIRECTIVE Health Care Decision (hx) 01/31/2021 AD WEST DIRECTIVE Health Care Decision (hx) 01/31/2021 AD WEST DIRECTIVE Care Teams Director Risk Relationship Specialty Start Date End Date Penny Andres MD [address] [place], [place] [address], [address] [place] [address] Physician Associ D/B/A: [facility] [place] PCP - General 06/27/22
--- NOTE | 2024-11-14 09:28 | HO.NEPHOV_ITS ---
Vital Signs 11/14/24 09:29 Height 4 ft 10 in Weight 177 lb BMI 37.0 BP 110/88 Blood Pressure Location Rt brachial Position Sitting Pulse 81 Pulse Source Pulse Oximeter Pulse Oximetry (%) 99 Oxygen Delivery Method Room Air Intake Visit Reasons: FU-Conf Interior Design Program Chair Required: Yes Interior Design Program Chair Name: Araceli [id number] Accompanied by: PLASTIC SURGERY NURSE Allergies aspirin (ASA) Allergy (Severe, Verified 11/14/24 09:37) FACIAL SWELLING naproxen (NAPROXEN) Allergy (Intermediate, Verified 11/14/24 09:37) NAUSEA & VOMITING hydrocodone (From Vicodin) Allergy (Mild, Verified 11/14/24 09:37) itching NSAIDS (Non-Steroidal Anti-Inflamma (Nsaids) Allergy (Mild, Verified 11/14/24 09:37) itching penicillamine Allergy (Mild, Verified 11/14/24 09:37) itching Medication List - Last Reconciled 11/14/24 by Garret Vizcaino MD [adult pullups As directed] allopurinol 100 mg PO DAILY 90 days alum-mag hydroxide-simeth 200-200-20 mg/5 mL mL PO amiodarone 200 mg PO .once a day 90 days apixaban (Eliquis) 5 mg PO Q12H blood pressure monitor As directed blood pressure test kit-large ([employer] Blood Pressure Monitor kit) As directed blood sugar diagnostic As directed blood sugar diagnostic (FreeStyle Lite Strips) Use 1 strip once a day blood sugar diagnostic (FreeStyle Lite Strips) test daily blood-glucose meter (FreeStyle Lite Meter kit) test daily blood-glucose meter (FreeStyle Lite Meter kit) As directed calcium carbonate (Oyster Shell Calcium) 500 mg PO DAILY 90 days cholecalciferol (vitamin D3) 25 mcg PO DAILY 90 days commode As directed dapagliflozin propanediol (Farxiga) 10 mg PO DAILY 90 days [disposable bedpads As directed] disposable gloves As directed disposable gloves As directed [disposable underwear As directed] ferrous sulfate 325 mg PO DAILY folic acid 1 mg PO DAILY 90 days gabapentin 400 mg PO BID 90 days [incontinence wipes As directed] lancets (FreeStyle Lancets) test daily lancets (FreeStyle Lancets) USe 1 lancet once a day loratadine 10 mg PO DAILY mecobalamin (vitamin B12) 1,000 mcg sublingual BEDTIME 90 days metformin 2,000 mg (2 x 1,000 mg) PO DAILY 90 days methylcellulose (laxative) (Citrucel) 500 mg PO DAILY montelukast 10 mg PO DAILY omeprazole 20 mg PO BEDTIME ondansetron HCl 4 mg PO DAILY PRN 90 days [personal cleansing wipes As directed] sennosides (Natural Senna Laxative) 8.6 mg PO BEDTIME simvastatin 10 mg PO BEDTIME [toilet frame As directed] tramadol 50 mg PO Q6H PRN Transfer Bench As directed triamcinolone acetonide 0.1% 1 appl topical DAILY 14 days underpads (Bed Underpads) As directed valacyclovir 1,000 mg PO Q8H 7 days walker (Ultra-Light Rollator misc) As directed HPI Comments Details: Samantha is a pleasant 83-year-old woman with a history of longstanding hypertension and diabetes mellitus with congestive heart failure, referred for chronic kidney disease. h/o DM x 20 years HFpEF A.flutter HTN CKD 4 recent serum creatinine was around 2.5 mg/dL and EGFR was around 20 mL/minute. About few years ago serum creatinine was 1.5 mg/dL. She has been taking Ibuprofen for about a month Used to take 2 day. Last dose was about 2 weeks ago. No weight loss No shortness of breath No chest pain No nausea or vomiting No diarrhea No polyuria, oliguria No edema No headache No palpitations or unexplained sweating 08/14/23 Here for follow up;;No specific complaints;Potassium was slightly elevated and creatinine bumped up from baseline. Lisinopril was stopped about a week ago;Interior Design Program Chair service was used 09/11/23 Ran out of [facility];No new issues;Lab results pending 05/07/24 Samantha doing well. No new complaints today. She seems compliant with her medications. Interior Design Program Chair service was used. 09/06/23 84-year-old female presenting with urinary retention symptoms. She describes difficulty in voiding, feeling as though her urine is obstructed, with only minimal intermittent dripping occurring. Specific details about the duration and onset were not provided, but the issue seems to be a chronic condition with recent exacerbations. She also has accompanying sore throat symptoms when she coughs, noted as adding to her general discomfort. The patient reports mild peripheral edema localized to the lower legs, characterized by transient resolution. Her blood glucose reading was 115 mg/dL in the morning, suggesting adequate control of her known diabetes mellitus. Additionally, she is noted to have mild iron deficiency anemia, contributing to her clinical profile. 11/14/24 The patient is an 84-year-old female presenting with chronic kidney disease management. Her kidney function has been consistently low, around 20%, and she has been experiencing peripheral edema, particularly in her feet. The patient also has a history of hypertension, which was noted to be high initially during the visit but improved upon rechecking. She denies any issues with breathing and reports her blood sugar levels are stable, with a recent reading of 119 mg/dL. An ultrasound conducted last month revealed a renal cyst, which is being monitored for any changes. The patient reports occasional consumption of high- potassium foods, such as bananas, which may contribute to her hyperkalemia. [facility] Medical History (Updated 07/25/23 @ 09:17 by Penny Andres MD) ROHINI (acute kidney injury) Lumbar pain Right knee pain Left knee pain Right hip pain Left hip pain Right shoulder pain Left hand pain Gout Morbid obesity Hyperlipidemia Lumbar radiculopathy B12 deficiency Normal colonoscopy Adenomatous colon polyp Asthma Acid reflux HTN (hypertension) Surgical History History of surgery History of colonoscopy History of total abdominal hysterectomy and bilateral salpingo-oophorectomy Family History Father No problems noted. Mother No problems noted. 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 Lungs entry equal no rales. Heart S1-S2 heard no gallop or rub. Abdomen soft nontender. Neuro alert awake oriented. No asterixis. Extremities no edema. Results Reviewed Results Reviewed: USG September 2024 Impression: 1. Kidneys normal size and position with normal cortical width and echotexture. 2. Nephrolithiasis on the right with incidental benign renal cortical cyst. 3. Indeterminate exophytic lesion lower pole left kidney correlate with CT or MRI with contrast renal protocol study Nephrology Results: Hgb, (12.0-16.0) 9.4 g/dl L 11/07/24 WBC, (4.8-10.8) 4.8 X10*3/uL 11/07/24 Plt Count, (160-400) 212 X10*3/uL 11/07/24 Sodium, (135-145) 141 mmol/L 11/07/24 Potassium, (3.3-5.1) 5.3 mmol/L H 11/07/24 Chloride, (96-108) 112 mmol/L H 11/07/24 Carbon Dioxide, (22-29) 22 mmol/L 11/07/24 BUN, (9-16) 35 mg/dL H 11/07/24 Creatinine, (0.5-1.4) 2.42 mg/dL H 11/07/24 Calcium, (8.4-10.2) 8.8 mg/dL Δ 11/07/24 Urine Protein, (Neg-Trace) 30 (1+) mg/dL H 11/07/24 Urine Creatinine 20.64 mg/dL 11/07/24 Renal US 09/19/24 Assessment & Plan Assessment & Plan (1) CKD (chronic kidney disease) stage 4, GFR 15-29 ml/min: Code(s): N18.4 - Chronic kidney disease, stage 4 (severe) Category: Medical (2) Hypertension, essential: Code(s): I10 - Essential (primary) hypertension Category: Medical Plan . Samantha is a pleasant 84-year-old woman with a history of chronic kidney disease in the setting of longstanding diabetes mellitus hypertension congestive heart failure. Underlying chronic kidney disease is most likely due to hypertensive diabetic kidney disease No obstructive uropathy based on renal ultrasound and evidence of glomerulonephritis The EGFR has been between 20 and 25 mL/minute for the last 3 years. USG- No obstruction Intermediate renal cyst- Will follow with USG in 6- 12 months Recurrent hyperkalemia. Stay on Low K diet Discussed Anemia due to chronic kidney disease. No need for EPogen yet Continue to Avoid NSAIDs 2 g sodium diet Optimize fluid intake Maintain A1c less than 7%. Maintain blood pressure less than 130/80 and avoid hypotension. Continue with the SGLT2 inhibitors for cardiorenal protection Agree with holding ALIYAH inhibitors due to hyperkalemia and worsening renal function . Stay on low-potassium diet. Repeat K levels today and assess need for Lokelma We will continue to monitor hemoglobin and reassess for possible need for erythropoietin replacement therapy. Given the degree of renal insufficiency , avoid metformin due to the risk of lactic acidosis. Due to mild leg edema, I Will add LAsix 20 mg PO daily x 3 doses Needs to stay on low salt diet Discussed with the help of interpretor Orders: Orders Basic Metabolic Panel 2 Months I10 - Essential (primary) hypertension, N18.4 - Chronic kidney disease, stage 4 (severe) Complete Blood Count no Diff 2 Months I10 - Essential (primary) hypertension, N18.4 - Chronic kidney disease, stage 4 (severe) Medications: New furosemide (Lasix) 20 mg PO DAILY 3 tabs 0RF Coding Level of Care Code Est Pt Level 4 (96106) Diagnoses CKD (chronic kidney disease) stage 4, GFR 15-29 ml/min N18.4 Hypertension, essential I10
[2024-11-14 09:29] VITALS: BP 110/88; PULSE 81; O2SAT 99; BMI 37.0
== END 2024-11-14 09:55 | disposition home or self-care (01) ==
LOC: HO.HKA 08:49
PROVIDERS: PCP Internal Medicine; Visit Provider Internal Medicine Hypertension Specialist
DX: I12.9 Hypertensive chronic kidney disease with stage 1 through stage 4 chronic kidney disease, or unspecified chronic kidney disease (principal); N18.4 Chronic kidney disease, stage 4 (severe)
CPT/HCPCS: 99214

== ENCOUNTER → 2024-11-14 08:44 | Outpatient (BNVA) | payer OTHER, SELFPAY | PROVIDERS: PCP Internal Medicine; Visit Provider Internal Medicine Hypertension Specialist | DX: I12.9 Hypertensive chronic kidney disease with stage 1 through stage 4 chronic kidney disease, or unspecified chronic kidney disease (principal); N18.4 Chronic kidney disease, stage 4 (severe); Z87.891 Personal history of nicotine dependence | CPT/HCPCS: 99212 ==

== ENCOUNTER 2025-01-27 08:47 | Outpatient (AMB) | payer OTHER, SELFPAY ==
[2025-01-27 09:15] VITALS: BP 138/90; PULSE 70; O2SAT 96; BMI 35.7
--- NOTE | 2025-01-27 09:15 | HO.NEPHOV_ITS ---
Vital Signs 01/27/25 09:15 Height 4 ft 10 in Weight 171 lb BMI 35.7 BP 138/90 H Blood Pressure Location Lt brachial Position Sitting Pulse 70 Pulse Source Pulse Oximeter Pulse Oximetry (%) 96 Oxygen Delivery Method Room Air Intake Visit Reasons: 2mon f/u w/labs, left vm Scientist Electronics Required: Yes Scientist Electronics Name: Kirit [id number] Accompanied by: CARDROOM WORKER Allergies aspirin (ASA) Allergy (Severe, Verified 01/27/25 09:18) FACIAL SWELLING naproxen (NAPROXEN) Allergy (Intermediate, Verified 01/27/25 09:18) NAUSEA & VOMITING hydrocodone (From Vicodin) Allergy (Mild, Verified 01/27/25 09:18) itching NSAIDS (Non-Steroidal Anti-Inflamma (Nsaids) Allergy (Mild, Verified 01/27/25 09:18) itching penicillamine Allergy (Mild, Verified 01/27/25 09:18) itching Medication List - Last Reconciled 01/27/25 by Garret Vizcaino MD [adult pullups As directed] allopurinol 100 mg PO DAILY 90 days alum-mag hydroxide-simeth 200-200-20 mg/5 mL mL PO amiodarone 200 mg PO .once a day 90 days apixaban (Eliquis) 5 mg PO Q12H blood pressure monitor As directed blood pressure test kit-large ([employer] Blood Pressure Monitor kit) As directed blood sugar diagnostic As directed blood sugar diagnostic (FreeStyle Lite Strips) Use 1 strip once a day blood sugar diagnostic (FreeStyle Lite Strips) test daily blood-glucose meter (FreeStyle Lite Meter kit) test daily blood-glucose meter (FreeStyle Lite Meter kit) As directed calcium carbonate (Oyster Shell Calcium) 500 mg PO DAILY 90 days cholecalciferol (vitamin D3) 25 mcg PO DAILY 90 days commode As directed dapagliflozin propanediol (Farxiga) 10 mg PO DAILY 90 days [disposable bedpads As directed] disposable gloves As directed disposable gloves As directed [disposable underwear As directed] ferrous sulfate 325 mg PO DAILY folic acid 1 mg PO DAILY 90 days furosemide (Lasix) 20 mg PO DAILY gabapentin 400 mg PO BID 90 days [incontinence wipes As directed] lancets (FreeStyle Lancets) test daily lancets (FreeStyle Lancets) USe 1 lancet once a day loratadine 10 mg PO DAILY mecobalamin (vitamin B12) 1,000 mcg sublingual BEDTIME 90 days metformin 2,000 mg (2 x 1,000 mg) PO DAILY 90 days methylcellulose (laxative) (Citrucel) 500 mg PO DAILY montelukast 10 mg PO DAILY omeprazole 20 mg PO BEDTIME ondansetron HCl 4 mg PO DAILY PRN 90 days [personal cleansing wipes As directed] sennosides (Natural Senna Laxative) 8.6 mg PO BEDTIME simvastatin 10 mg PO BEDTIME [toilet frame As directed] tramadol 50 mg PO Q6H PRN Transfer Bench As directed triamcinolone acetonide 0.1% 1 appl topical DAILY 14 days underpads (Bed Underpads) As directed valacyclovir 1,000 mg PO Q8H 7 days walker (Ultra-Light Rollator misc) As directed HPI Comments Details: Samantha is a pleasant 83-year-old woman with a history of longstanding hypertension and diabetes mellitus with congestive heart failure, referred for chronic kidney disease. h/o DM x 20 years HFpEF A.flutter HTN CKD 4 recent serum creatinine was around 2.5 mg/dL and EGFR was around 20 mL/minute. About few years ago serum creatinine was 1.5 mg/dL. She has been taking Ibuprofen for about a month Used to take 2 day. Last dose was about 2 weeks ago. No weight loss No shortness of breath No chest pain No nausea or vomiting No diarrhea No polyuria, oliguria No edema No headache No palpitations or unexplained sweating 08/14/23 Here for follow up;;No specific complaints;Potassium was slightly elevated and creatinine bumped up from baseline. Lisinopril was stopped about a week ago;Scientist Electronics service was used 09/11/23 Ran out of [facility];No new issues;Lab results pending 05/07/24 Samantha doing well. No new complaints today. She seems compliant with her medications. Scientist Electronics service was used. 09/06/23 84-year-old female presenting with urinary retention symptoms. She describes difficulty in voiding, feeling as though her urine is obstructed, with only minimal intermittent dripping occurring. Specific details about the duration and onset were not provided, but the issue seems to be a chronic condition with recent exacerbations. She also has accompanying sore throat symptoms when she coughs, noted as adding to her general discomfort. The patient reports mild peripheral edema localized to the lower legs, characterized by transient resolution. Her blood glucose reading was 115 mg/dL in the morning, suggesting adequate control of her known diabetes mellitus. Additionally, she is noted to have mild iron deficiency anemia, contributing to her clinical profile. 11/14/24 The patient is an 84-year-old female presenting with chronic kidney disease management. Her kidney function has been consistently low, around 20%, and she has been experiencing peripheral edema, particularly in her feet. The patient also has a history of hypertension, which was noted to be high initially during the visit but improved upon rechecking. She denies any issues with breathing and reports her blood sugar levels are stable, with a recent reading of 119 mg/dL. An ultrasound conducted last month revealed a renal cyst, which is being monitored for any changes. The patient reports occasional consumption of high- potassium foods, such as bananas, which may contribute to her hyperkalemia. 01/27/25 - The patient is an 84-year-old female presenting with follow-up for hypertension, diabetes, chronic kidney disease, and heart failure. - Hypertension: Long-term management. - Diabetes Mellitus: Part of chronic care. - Chronic Kidney Disease: Stable, creatinine 2.5 mg/dL. - Heart Failure: Managed chronically. - Cough: One week, non-productive, no fever or chest pain. - Medication adherence: Continue furosemide, antibiotics for cough. - Lab work: Hemoglobin improved, kidney function stable. [facility] Medical History (Updated 07/25/23 @ 09:17 by Penny Andres MD) ROHINI (acute kidney injury) Lumbar pain Right knee pain Left knee pain Right hip pain Left hip pain Right shoulder pain Left hand pain Gout Morbid obesity Hyperlipidemia Lumbar radiculopathy B12 deficiency Normal colonoscopy Adenomatous colon polyp Asthma Acid reflux HTN (hypertension) Surgical History History of surgery History of colonoscopy History of total abdominal hysterectomy and bilateral salpingo-oophorectomy Family History Father No problems noted. Mother No problems noted. Son In good health Son In good health Daughter In good health Daughter In good health Daughter In good health Daughter In good health Social History Household Members Other:: lives alone- has a production engineer track Caregiver staying overnight: Yes Housing: Apartment Alcohol intake: never Patient Tobacco Use Status: Former Tobacco user Tobacco use type: Cigarette e-Cigarette/Vaping Use: Never Used Second Hand Smoke Exposure: No service: No Current occupational status: disabled Cognitive needs: Yes Hearing needs: No Vision needs: Yes Physical Exam Vital Signs: Last Vital Signs Pulse 70 01/27/25 09:15 BP 138/90 H 01/27/25 09:15 Pulse Ox 96 01/27/25 09:15 Oxygen Delivery Method Room Air 01/27/25 09:15 BMI result Body Mass Index 35.7 Comfortable Neck supple no JVD. Lungs entry equal no rales. Heart S1-S2 heard no gallop or rub. Abdomen soft nontender. Neuro alert awake oriented. No asterixis. Extremities no edema. Results Reviewed Results Reviewed: 01/23/25 Cr 2.58 Hgb 9.0 Nephrology Results: Hgb, (12.0-16.0) 9.4 g/dl L 11/07/24 WBC, (4.8-10.8) 4.8 X10*3/uL 11/07/24 Plt Count, (160-400) 212 X10*3/uL 11/07/24 Sodium, (135-145) 141 mmol/L 11/07/24 Potassium, (3.3-5.1) 5.3 mmol/L H 11/07/24 Chloride, (96-108) 112 mmol/L H 11/07/24 Carbon Dioxide, (22-29) 22 mmol/L 11/07/24 BUN, (9-16) 35 mg/dL H 11/07/24 Creatinine, (0.5-1.4) 2.42 mg/dL H 11/07/24 Calcium, (8.4-10.2) 8.8 mg/dL Δ 11/07/24 Urine Protein, (Neg-Trace) 30 (1+) mg/dL H 11/07/24 Urine Creatinine 20.64 mg/dL 11/07/24 Renal US 09/19/24 Assessment & Plan Assessment & Plan (1) CKD (chronic kidney disease) stage 4, GFR 15-29 ml/min: Code(s): N18.4 - Chronic kidney disease, stage 4 (severe) Category: Medical (2) Hypertension, essential: Code(s): I10 - Essential (primary) hypertension Category: Medical Plan . Samantha is a pleasant 84-year-old woman with a history of chronic kidney disease in the setting of longstanding diabetes mellitus hypertension congestive heart failure. Underlying chronic kidney disease is most likely due to hypertensive diabetic kidney disease No obstructive uropathy based on renal ultrasound and evidence of glomerulonephritis The EGFR has been between 20 and 25 mL/minute for the last 3 years. USG- No obstruction Intermediate renal cyst- Will follow with USG in 6- 12 months h/o hyperkalemia. Stay on Low K diet Anemiia due to chronic kidney disease. No need for EPogen yet Continue to Avoid NSAIDs 2 g sodium diet Optimize fluid intake Maintain A1c less than 7%. Maintain blood pressure less than 130/80 and avoid hypotension. Continue with the SGLT2 inhibitors for cardiorenal protection Agree with holding ALIYAH inhibitors due to hyperkalemia and worsening renal function . Stay on low-potassium diet. We will continue to monitor hemoglobin and reassess for possible need for erythropoietin replacement therapy. Given the degree of renal insufficiency , avoid metformin due to the risk of lactic acidosis. Due to mild leg edema, Keep LAsix 20 mg PO daily Needs to stay on low salt diet Amoxicillin 500 mg PO BID x 5 days prescribed Discussed with the help of interpretor Orders: Orders Basic Metabolic Panel 3 Months N18.4 - Chronic kidney disease, stage 4 (severe) Complete Blood Count no Diff 3 Months N18.4 - Chronic kidney disease, stage 4 (severe) IRON PROFILE 3 Months N18.4 - Chronic kidney disease, stage 4 (severe) Ferritin 3 Months N18.4 - Chronic kidney disease, stage 4 (severe) Medications: New amoxicillin 500 mg PO BID 10 caps 0RF Coding Level of Care Code Est Pt Level 4 (18281) Diagnoses CKD (chronic kidney disease) stage 4, GFR 15-29 ml/min N18.4 Hypertension, essential I10
--- OUTSIDE RECORDS SUMMARY | 2025-01-27 09:24 | XMS_ITS | Clinical Summary ---
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 Snyder met her in [...] Encounters Date Type Department Care Team Description 01/07/2025 9:50 AM EDT Ancillary Procedure [facility] Cardiology [facility] [address] [place] [id number] 11/07/[address] [facility] Cardiology [facility] [address] [place] [id number] Davie Zepeda NP from Last 3 Months Immunizations Immunization Administration Dates Next Due Influenza trivalent, 0.5mL [...] History Date Comments PAF (paroxysmal atrial fibrillation) ([facility] V2 4, [facility] V28) SSS (sick sinus syndrome) ([facility] V24, [facility] [place] V28) (HFpEF) heart failure with p reserved ejection fraction ([facility] [place] V24, [facility] [place] V28) Hyperlipidemia Hypertension Social History Tobacco Use [...] Health Maintenance Due Date Last Done Comments Diabetes: Annual Foot Exam 1950 Diabetes: Annual Retina Eye Exam 1950 Zoster Vaccines (1 of 2) 1990 RSV Immunization Adult Patients (1 - 1-dose 75+ series) 06/13/2015 Pneumococcal Vaccine: 50+ Years (2 of 2 - PCV) 02/13/2020 02/12/2019 Cholesterol Screening (Lipid Panel) 03/02/2022 Falls Risk Assessment 03/02/2022 Medicare Annual Wellness Visit 03/02/2022 Osteoporosis Screening (Bone Density Screening) 03/02/2022 Social Influencers of Health Screening 03/02/2022 Depression Screening 04/03/2024 COVID-19 Vaccine ( season) 2024 04/21/2023, 06/26/2020 Influenza Vaccine (#1) 2024 , 02/12/2019, 03/20/2018, Additional history exists Diabetes: Annual Urine Albumin-Creatinine Ratio (uACR) 01/07/2025 Diabetes: Blood Sugar Control Test (HGBA1C) 01/07/2025 Diabetes: Annual GFR (Glomerular Filtration Rate) 01/23/2026 01/23/2025, 04/24/2024 Hypertension/CHF/CAD Annual BMP Blood Test 01/23/2026 01/23/2025, 04/24/2024 DTaP,Tdap,and Td Vaccines (2 - Td [...] this topic Medical Devices Implanted Type Area Occupational Therapy Department Chair Device Identifier Shelf Expiration Date Model / Serial / Lot Medt-Card [place] Xt Dr Juan [id number] Implanted: (Quantity not on file) Cardiac Pacemaker [employer] - CARDIAC RHYTH-[facility] XT DR JUAN [id number] / [id number] / Medt-Card [employer] Xt Dr Juan [id number] Implanted: (Quantity not on file) Cardiac Pacemaker [employer] - CARDIAC RHYTH-[facility] [employer] XT DR JUAN / [id number] / Procedures Procedure Name Priority Date/Time Associated Diagnosis Comments BASIC METABOLIC PANEL Routine 01/23/2025 8:49 AM EDT Hypertension, essential Chronic kidney disease, stage IV (severe) (CMS/HCC V24, CMS/HCC V28) COMPLETE BLOOD COUNT Routine 01/23/2025 8:49 AM EDT Hypertension, essential Chronic kidney disease, stage IV (severe) (CMS/HCC V24, CMS/HCC V28) CARDIAC DEVICE CHECK- REMOTE- MURJ Routine 01/07/2025 9:47 AM EDT from Last 3 Months Results * (ABNORMAL) Complete blood count (01/23/2025 8:49 AM EDT) WBC 5.3 4.8 - 10.8 K/mcL LAB HEMETOLOGY METHOD 01/23/2025 9:13 AM [facility] RBC 2.90(L) 3.80 - 4.80 M/mcL LAB HEMETOLOGY METHOD 01/23/2025 9:13 AM [facility] Hemoglobin 9.0(L) 11.5 - 16.0 g/dL LAB HEMETOLOGY METHOD 01/23/2025 9:13 AM [facility] Hematocrit 28.9(L) 35.0 - 47.0 % LAB HEMETOLOGY METHOD 01/23/2025 9:13 AM [facility] MCV 100.7(H) 79.0 - 98.0 FL LAB HEMETOLOGY METHOD 01/23/2025 9:13 AM [facility] MCH 31.4 27.0 - 32.0 pcg LAB HEMETOLOGY METHOD 01/23/2025 9:13 AM [facility] MCHC 31.1(L) 32.0 - 37.0 g/dL LAB HEMETOLOGY METHOD 01/23/2025 9:13 AM EDT [facility] RDW 14.2 11.0 - 15.0 % LAB HEMETOLOGY METHOD 01/23/2025 9:13 AM EDT [facility] Platelets 178 130 - 400 K/mcL LAB HEMETOLOGY METHOD 01/23/2025 9:13 AM EDT [facility] MPV 11.5(H) 7.0 - 11.0 FL LAB HEMETOLOGY METHOD 01/23/2025 9:13 AM EDT [facility] NRBC 0.0 <1.0 % LAB HEMETOLOGY METHOD 01/23/2025 9:13 AM EDT [facility] NRBC Absolute 0.00 <0.10 K/mcL LAB HEMETOLOGY METHOD 01/23/2025 9:13 AM EDT [facility] Blood Venous blood specimen / Unknown Venipuncture / Unknown 01/23/2025 8:49 AM EDT 01/23/2025 9:07 AM EDT Garret Vizcaino MD LAB BLOOD ORDERABL ES Final Result [facility] [address] [place] [address], * (ABNORMAL) Basic metabolic panel (01/23/2025 8:49 AM EDT) Sodium 140 133 - 145 mmol/L LAB CHEMISTRY METHOD 01/23/2025 10:40 AM EDT [facility] Potassium 4.7 3.5 - 5.5 mmol/L LAB CHEMISTRY METHOD 01/23/2025 10:40 AM T [facility] Chloride 108 96 - 110 mmol/L LAB CHEMISTRY METHOD 01/23/2025 10:40 AM [facility] CO2 25 21 - 32 mmol/L LAB CHEMISTRY METHOD 01/23/2025 10:40 AM [facility] Anion Gap 7 3 - 11 LAB CHEMISTRY METHOD 01/23/2025 10:40 AM [facility] Glucose 105(H) 70 - 100 mg/dL LAB CHEMISTRY METHOD 01/23/2025 10:40 AM [facility] BUN 34(H) 5 - 25 mg/dL LAB CHEMISTRY METHOD 01/23/2025 10:40 AM [facility] Creatinine 2.58(H) 0.50 - 1.10 mg/dL LAB CHEMISTRY METHOD 01/23/2025 10:40 AM [facility] eGFR 18(L) >=60 mL/min/1. 73m2 LAB CHEMISTRY METHOD 01/23/2025 10:40 AM [facility] Comment:Calculation based on the Chronic Kidney Disease Epidemiology Collaboration (CKD-EPI) equation refit without adjustment for race. BUN/Creatinine Ratio 13.2 LAB CHEMISTRY METHOD 01/23/2025 10:40 AM [facility] Calcium 8.9 8.5 - 10.5 mg/dL LAB CHEMISTRY METHOD 01/23/2025 10:40 AM [facility] Blood Venous blood specimen / Unknown Venipuncture / Unknown 01/23/2025 8:49 AM EDT 01/23/2025 9:06 AM EDT us Garret Vizcaino MD LAB BLOOD ORDERABL ES Final Result [facility] [address] [place] [address], * Cardiac device check - Remote- MURJ (01/07/2025 9:47 AM EDT) Date Time Interrogation Session [id number] CV DEVICE CHECK Type Interrogation Session Remote CV DEVICE CHECK Implantable Pulse Generator Occupational Therapy Department Chair MDT CV DEVICE CHECK Implantable Pulse Generator Type IPG CV DEVICE CHECK Implantable Pulse Generator Model Chapo XT DR MRI [id number] CV DEVICE CHECK Implantable Pulse Generator Serial Number [id number] CV DEVICE CHECK Implantable Pulse Generator Implant Date 20220425 CV DEVICE CHECK Battery Remaining Longevity 130.0 CV DEVICE CHECK Battery Voltage 3.020 CV D EVICE CHECK Battery KNOWLEDGE MANAGEMENT ADVISOR Trigger 2.625 CV DEVICE CHECK Battery Status Middle of Service CV DEVICE CHECK Emmanuel Statistic RA Percent Paced 46.87 CV DEVICE CHECK Emmanuel Statistic RV Percent Paced 63.15 CV DEVICE CHECK Atrial Tachy Statistic AT/AF Coulter Percent 36.80 CV DEVICE CHECK Lead Channel Sensing Intrinsic Amplitude 0.875 CV DEVICE CHECK Lead Channel Setting Sensing Sensitivity 0.30 CV DEVICE CHECK Lead Channel Impedance Value 342 CV DEVICE CHECK Lead Channel Pacing Threshold Amplitude 0.750 CV DEVICE CHECK Lead Channel Pacing Threshold Pulse Width 0.4 CV DEVICE CHECK Lead Channel RA Pacing Threshold Date 2024-12-29 CV DEVICE CHECK Lead Channel Setting Pacing Amplitude 1.500 CV DEVICE CHECK Lead Channel Setting Pacing Pulse Width 0.4 CV DEVICE CHECK Lead Channel Sensing Intrinsic Amplitude 6.250 CV DEVICE CHECK Lead Channel Setting Sensing Sensitivity 0.90 CV DEVICE CHECK Lead Channel Impedance Value 513 CV DEVICE CHECK Lead Channel Pacing Threshold Amplitude 0.625 CV DEVICE CHECK Lead Channel Pacing Threshold Pulse Width 0.4 CV DEVICE CHECK Lead Channel RV Pacing Threshold Date 2024-12-30 CV DEVICE CHECK Lead Channel Setting Pacing [...] 6 CV DEVICE CHECK Date of Service 2025-01-23 CV DEVICE CHECK Anatomical Region Laterality Modality Device Interroga tion 12/30/2024 6:43 AM EDT Impressions 01/07/2025 9:44 AM EDT Normal Remote: With Events * Normal Device Function * Events or Alerts: 50 * Appears to be Atrial Oversensing * Battery: OK, 10.83 yrs * Sensing, impedance and thresholds reviewed * Programmed parameters reviewed * Presenting rhythm reviewed * Heart Rate Histograms reviewed Additional Notes: See patient note. Atrial oversensing previously addressed Narrative Procedure Note Carlie Castellon PA - 01/07/2025 IMPRESSION: Normal Remote: With Events * Normal Device Function * Events or Alerts: 50 * Appears to be Atrial Oversensing * Battery: OK, 10.83 yrs * Sensing, impedance and thresholds reviewed * Programmed parameters reviewed * Presenting rhythm reviewed * Heart Rate Histograms reviewed Additional Notes: See patient note. Atrial oversensing previouslyaddressed Carlie STREETER CV IMPLANTABLE CARDIAC DEVICE MT OCEDURES Final Result from Last 3 Months Insurance MEDICAID - [place] [employer] MEDICARE Advance Directives Documents on File Type Date Recorded Patient Cad Designer Drafter Expl anation Health Care Decision (hx) 01/31/2021 AD WEST DIRECTIVE Health Care Decision (hx) 01/31/2021 AD WEST DIRECTIVE Health Care Decision (hx) 01/31/2021 AD WEST DIRECTIVE Health Care Decision (hx) 01/31/2021 AD WEST DIRECTIVE Health Care Decision (hx) 01/31/2021 AD WEST DIRECTIVE Health Care Decision (hx) 01/31/2021 AD WEST DIRECTIVE Care Teams Business Performance Advisor Relationship Specialty Start Date End Date Penny Andres MD [address] [facility] , [address] [place] [address] Physician Associ D/B/A: [facility] In Internal Medicine TRELL Grubbs PCP - General 06/27/22
== END 2025-01-27 09:39 | disposition home or self-care (01) ==
LOC: HO.HKA 08:48
PROVIDERS: PCP Internal Medicine; Visit Provider Internal Medicine Hypertension Specialist
DX: I12.9 Hypertensive chronic kidney disease with stage 1 through stage 4 chronic kidney disease, or unspecified chronic kidney disease (principal); N18.4 Chronic kidney disease, stage 4 (severe)
CPT/HCPCS: 99214

== ENCOUNTER → 2025-01-27 08:47 | Outpatient (BNVA) | payer OTHER, SELFPAY | PROVIDERS: PCP Internal Medicine; Visit Provider Internal Medicine Hypertension Specialist | DX: I13.0 Hypertensive heart and chronic kidney disease with heart failure and stage 1 through stage 4 chronic kidney disease, or unspecified chronic kidney disease (principal); E11.22 Type 2 diabetes mellitus with diabetic chronic kidney disease; N18.4 Chronic kidney disease, stage 4 (severe); Z87.891 Personal history of nicotine dependence; Z79.84 Long term (current) use of oral hypoglycemic drugs; E78.5 Hyperlipidemia, unspecified; Z79.01 Long term (current) use of anticoagulants | CPT/HCPCS: 99212 ==